=== PATIENT | male | born 1960 | race Caucasian/White ===

== ENCOUNTER 2019-08-26 08:27 | Emergency (ER) | payer OTHER, SELFPAY ==
[2019-08-26] MEDS ORDERED: Ringers Lactate 1,000 ML IV ONE (08:41)
[2019-08-26 09:05] LABS: Absolute Lymphocytes (CBC) 1.9 K/uL (0.7-4.9); Basophils % 0.8 % (0-1.3); Hematocrit 32.4 % (39.6-49.0); Lymphocytes % 22.1 % (15.3-44.8); MPV 8.2 fL (7.6-11.3); RBC Red Blood Cell Count 3.49 M/uL (4.33-5.43)
[2019-08-26 09:12] LABS: Protime INR 0.87
[2019-08-26 09:29] LABS: Albumin 4.3 g/dL (3.4-5.0); Bilirubin Direct 0.2 mg/dL (0-0.2); Bilirubin Total 0.5 mg/dL (0.2-1.0); Potassium 3.9 mmol/L (3.5-5.1); Protein, Total 7.8 g/dL (6.4-8.2)
[2019-08-26 10:23] LABS: Barbiturates NEGATIVE (NEGATIVE); Benzodiazepines NEGATIVE (NEGATIVE); Cocaine NEGATIVE (NEGATIVE); METHAMPHETAM POSITIVE (NEGATIVE); Methadone NEGATIVE (NEGATIVE); Opiates NEGATIVE (NEGATIVE); Phencyclidine NEGATIVE (NEGATIVE); THC Cannibis NEGATIVE (NEGATIVE)
--- NOTE | 2019-08-26 10:33 | EDPHYS ---
Physician Documentation [facility] Name: Arden Lux III Age: 59 yrs Sex: Male : 1960 Arrival Date: 08/26/2019 Time: 08:33 Bed 14 Private MD: ED Physician Ru Up HPI: 08/26 08:33 This 59 yrs old Male presents to ER via Unassigned with complaints of Anxiety.jr8 08:33 Onset: The symptoms/episode began/occurred this morning. Associated signs and symptoms: jr8 Pertinent negatives: abdominal pain, chest pain, cough, diarrhea, dysuria, vomiting, wheezing. BIBEMS called out for possible CVA. Upon EMS arrival pt is without and focal neurological findings, pt appears anxious, C/O fatigue, dehydration. . Historical: - Allergies: 08:26 Sulfa (Sulfonamide Antibiotics); rb1 - Home Meds: 08:26 lisinopril 20 mg Oral tab 1 tab once daily [Active]; simvastatin 40 mg Oral tab 1 tab rb1 nightly [Active]; Tylenol #4 Oral 1 tab BID PRN [Active]; esomeprazole magnesium 40 mg Oral cpDR 1 cap once daily [Active]; lorazepam 2 mg Oral tab 1 tab TID prn [Active]; - PMHx: 08:26 Anxiety; CVA; GERD; Hepatitis C; High Cholesterol; Hypertension; suicidal ideation; rb1 - PSHx: 08:26 None; rb1 - Immunization history:: Adult Immunizations up to date. - Social history:: Smoking status: Patient uses tobacco products, smokes one pack cigarettes per day. - Ebola Screening: : Patient negative for fever greater than or equal to 101.5 degrees Fahrenheit, and additional compatible Ebola Virus Disease symptoms. ROS: 08:33 Constitutional: Negative for fever, chills, and weight loss, Eyes: Negative for injury, jr8 pain, redness, and discharge, ENT: Negative for injury, pain, and discharge, Neck: Negative for injury, pain, and swelling, Cardiovascular: Negative for chest pain, palpitations, and edema, Respiratory: Negative for shortness of breath, cough, wheezing, and pleuritic chest pain, Abdomen/GI: Negative for abdominal pain, nausea, vomiting, diarrhea, and constipation, Back: Negative for injury and pain, MS/Extremity: Negative for injury and deformity, Skin: Negative for injury, rash, and discoloration, Neuro: Negative for headache, weakness, numbness, tingling, and seizure. Exam: 08:33 Constitutional: This is a well developed, well nourished patient who is awake, alert, jr8 and in no acute distress. Head/Face: Normocephalic, atraumatic. Eyes: Pupils equal round and reactive to light, extra-ocular motions intact. Lids and lashes normal. Conjunctiva and sclera are non-icteric and not injected. Cornea within normal limits. Periorbital areas with no swelling, redness, or edema. ENT: Nares patent. No nasal discharge, no septal abnormalities noted. Tympanic membranes are normal and external auditory canals are clear. Oropharynx with no redness, swelling, or masses, exudates, or evidence of obstruction, uvula midline. Mucous membranes moist. Neck: Trachea midline, no thyromegaly or masses palpated, and no cervical lymphadenopathy. Supple, full range of motion without nuchal rigidity, or vertebral point tenderness. No Meningismus. Chest/axilla: Normal chest wall appearance and motion. Nontender with no deformity. No lesions are appreciated. Cardiovascular: Regular rate and rhythm with a normal S1 and S2. No gallops, murmurs, or rubs. Normal PMI, no JVD. No pulse deficits. Respiratory: Lungs have equal breath sounds bilaterally, clear to auscultation and percussion. No rales, rhonchi or wheezes noted. No increased work of breathing, no retractions or nasal flaring. Abdomen/GI: Soft, non-tender, with normal bowel sounds. No distension or tympany. No guarding or rebound. No evidence of tenderness throughout. Back: No spinal tenderness. No costovertebral tenderness. Full range of motion. Skin: Warm, dry with normal turgor. Normal color with no rashes, no lesions, and no evidence of cellulitis. MS/ Extremity: Pulses equal, no cyanosis. Neurovascular intact. Full, normal range of motion. 08:33 Neuro: Orientation: is normal, Mentation: is normal, Cranial nerves: CN II- XII are normal as tested, Motor: is normal, Sensation: is normal, Gait: not applicable Vital Signs: 08:26 BP 167 / 95; Pulse 95; Resp 20; Temp 97.9(O); Pulse Ox 100% on R/A; Weight 63.5 kg (R); rb1 Height 5 ft. 6 in. (167.64 cm) (R); Pain 8/10; 09:25 BP 173 / 99; Pulse 95; Resp 14; Pulse Ox 100% on R/A; rb1 10:22 BP 179 / 96; Pulse 96; Resp 15; Temp 98.1(O); Pulse Ox 100% on R/A; Pain 6/10; rb1 08:26 Body Mass Index 22.60 (63.50 kg, 167.64 cm) rb1 MDM: 08:33 Patient medically screened. 8 10:31 Data reviewed: vital signs, nurses notes, lab test result(s), EKG. Data interpreted: jr8 Pulse oximetry: on room air is 100 %. Interpretation: normal. Counseling: I had a detailed discussion with the patient and/or guardian regarding: the historical points, exam findings, and any diagnostic results supporting the discharge/admit diagnosis, lab results, the need for outpatient follow up, a family practitioner, to return to the emergency department if symptoms worsen or persist or if there are any questions or concerns that arise at home. Response to treatment: the patient's symptoms have markedly improved after treatment, patient is well hydrated. 08/26 08:35 Order name: Basic Metabolic Panel; Complete Time: :08/26 08:35 Order name: CBC with Diff; Complete Time: 09:08/26 08:35 Order name: ETOH Level; Complete Time: :08/26 08:35 Order name: Hepatic Function; Complete Time: :08/26 08:35 Order name: PT-INR; Complete Time: :52 08/26 08:35 Order name: Ptt, Activated; Complete Time: :52 08/26 08:35 Order name: Urine Drug Screen; Complete Time: 10:31 08/26 08:35 Order name: EKG; Complete Time: 08:36 08/26 08:35 Order name: EKG - Nurse/Tech; Complete Time: 09:09 08/26 08:35 Order name: IV Saline Lock; Complete Time: 09:08/26 08:35 Order name: Labs collected and sent; Complete Time: 09:09 jr8 08/26 08:35 Order name: Urine Dipstick-Ancillary (obtain specimen); Complete Time: 10:35 jr8 08/26 10:05 Order name: Urine Dipstick--Ancillary (enter results) gm Administered Medications: 08:50 Drug: Lactated Ringers Solution 1000 ml Route: IV; Rate: 999 ml/hr; Site: right rb1 antecubital; 09:59 Follow up: IV Status: Completed infusion rb1 Disposition: 12:16 Co-signature as Attending Physician, Ru Up MD. rn Disposition: 08/26/19 10:32 Discharged to Home. Impression: Drug abuse counseling and surveillance of drug abuser, Alcohol abuse, Panic disorder [episodic paroxysmal anxiety] without agoraphobia. - Condition is Stable. - Discharge Instructions: Alcohol Intoxication, Panic Attacks, Stimulant Use Disorder-Methamphetamines. - Medication Reconciliation Form, Thank You Letter, Antibiotic Education, Prescription Opioid Use form. - Follow up: Private Physician; When: 2 - 3 days; Reason: Recheck today's complaints, Continuance of care, Re-evaluation by your physician. - Problem is new. - Symptoms have improved. Signatures: Dispatcher [employer] EDMS Ru Up MD MD rn Roszak, Josh, PA PA jr8 Camila Atkins RN RN rb1 Corrections: (The following items were deleted from the chart) 10:52 10:32 08/26/2019 10:32 Discharged to Home. Impression: Drug abuse counseling and rb1 surveillance of drug abuser; Alcohol abuse; Panic disorder [episodic paroxysmal anxiety] without agoraphobia. Condition is Stable. Forms are Medication Reconciliation Form, Thank You Letter, Antibiotic Education, Prescription Opioid Use. Follow up: Private Physician; When: 2 - 3 days; Reason: Recheck today's complaints, Continuance of care, Re-evaluation by your physician. Problem is new. Symptoms have improved. jr8
--- NOTE | 2019-08-26 10:33 | ER ---
Nurse's Notes [facility] Name: Arden Lux III Age: 59 yrs Sex: Male : 1960 Arrival Date: 08/26/2019 Time: 08:33 Bed 14 Private MD: Diagnosis: Drug abuse counseling and surveillance of drug abuser;Alcohol abuse;Panic disorder [episodic paroxysmal anxiety] without agoraphobia Presentation: 08/26 08:26 Presenting complaint: EMS states: [place]. Has a rb1 history of a stroke and anxiety. He is non-compliant with his medications. BP 128/73. Allergy to Sulfa. Transition of care: patient was not received from another setting of care. Onset of symptoms is unknown. Risk Assessment: Do you want to hurt yourself or someone else? Patient reports no desire to harm self or others. Initial Sepsis Screen: Does the patient meet any 2 criteria? No. Patient's initial sepsis screen is negative. Does the patient have a suspected source of infection? No. Patient's initial sepsis screen is negative. Care prior to arrival: None. 08:26 Method Of Arrival: EMS: [facility] rb1 08:26 Acuity: LILIA 3 rb1 Triage Assessment: 08:26 General: Appears comfortable, Behavior is anxious, talkative. Pain: Complains of pain rb1 in back of neck Pain currently is 8 out of 10 on a pain scale. Neuro: Level of Consciousness is awake, alert, obeys commands, Oriented to person, place, time, situation. Cardiovascular: Capillary refill < 3 seconds is brisk in bilateral fingers. Respiratory: Airway is patent Respiratory effort is even, unlabored, Respiratory pattern is regular, symmetrical. GI: No signs and/or symptoms were reported involving the gastrointestinal system. : No signs and/or symptoms were reported regarding the genitourinary system. Derm: Skin is pink, warm \T\ dry. Musculoskeletal: Range of motion: intact in all extremities. Historical: - Allergies: 08: Sulfa (Sulfonamide Antibiotics); rb1 - Home Meds: 08: lisinopril 20 mg Oral tab 1 tab once daily [Active]; simvastatin 40 mg Oral tab 1 tab rb1 nightly [Active]; Tylenol #4 Oral 1 tab BID PRN [Active]; esomeprazole magnesium 40 mg Oral cpDR 1 cap once daily [Active]; lorazepam 2 mg Oral tab 1 tab TID prn [Active]; - PMHx: 08: Anxiety; CVA; GERD; Hepatitis C; High Cholesterol; Hypertension; suicidal ideation; rb1 - PSHx: 08: None; rb1 - Immunization history:: Adult Immunizations up to date. - Social history:: Smoking status: Patient uses tobacco products, smokes one pack cigarettes per day. - Ebola Screening: : Patient negative for fever greater than or equal to 101.5 degrees Fahrenheit, and additional compatible Ebola Virus Disease symptoms. Screenin: Abuse screen: Denies threats or abuse. Nutritional screening: No deficits noted. rb1 Tuberculosis screening: No symptoms or risk factors identified. Fall Risk None identified. Assessment: 08: General: See triage assessment. rb1 09:25 Reassessment: Patient appears in no apparent distress at this time. No changes from rb1 previously documented assessment. 10:22 Reassessment: Patient appears in no apparent distress at this time. Patient and/or rb1 family updated on plan of care and expected duration. Pain level reassessed. Patient is alert, oriented x 3, equal unlabored respirations, skin warm/dry/pink. Pt. is watching TV. Vital Signs: 08:26 BP 167 / 95; Pulse 95; Resp 20; Temp 97.9(O); Pulse Ox 100% on R/A; Weight 63.5 kg (R); rb1 Height 5 ft. 6 in. (167.64 cm) (R); Pain 8/10; 09:25 BP 173 / 99; Pulse 95; Resp 14; Pulse Ox 100% on R/A; rb1 10:22 BP 179 / 96; Pulse 96; Resp 15; Temp 98.1(O); Pulse Ox 100% on R/A; Pain 6/10; rb1 08:26 Body Mass Index 22.60 (63.50 kg, 167.64 cm) [facility] ED Course: 08: Arm band placed on right wrist. rb1 08: Patient has correct armband on for positive identification. Bed in low position. Call rb1 light in reach. Side rails up X 1. child monitor on. Pulse ox on. NIBP on. Warm blanket given. 08:33 Patient arrived in ED. jr8 08:33 Dwaine Vega PA is PHCP. jr8 08:33 Ru Up MD is Attending Physician. jr8 08:38 Camila Atkins, RN is Primary Nurse. rb1 08:49 Inserted saline lock: 22 gauge in right antecubital area, using aseptic technique. rb1 Blood collected. 09:13 Triage completed. rb1 10:48 No provider procedures requiring assistance completed. IV discontinued, intact, rb1 bleeding controlled, No redness/swelling at site. Pressure dressing applied. Administered Medications: 08:50 Drug: Lactated Ringers Solution 1000 ml Route: IV; Rate: 999 ml/hr; Site: right rb1 antecubital; 09:59 Follow up: IV Status: Completed infusion rb1 Outcome: 10:32 Discharge ordered by . jr8 10:48 Discharged to home ambulatory. rb1 10:48 Condition: stable 10:48 Discharge instructions given to patient, Instructed on discharge instructions, follow up and referral plans. Demonstrated understanding of instructions, follow-up care, Prescriptions given X none 10:52 Patient left the ED. rb1 Signatures: Dwaine Vega PA PA jr8 Camila Atkins, RN RN rb1
[2019-08-26 10:59] VITALS: O2SAT 100
[2019-08-26 11:00] VITALS: BP 179/96; TEMP 98.1
[2019-08-26 11:38] LABS: Urine Blood NEGATIVE (NEG); Urine Glucose NEGATIVE (NEG); Urine Protein NEGATIVE (NEG); Urine pH 5.5 (5.0-7.0)
--- NOTE | 2019-08-27 09:50 | EKG ---
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
== END 2019-08-26 10:52 | disposition home or self-care (01) ==
LOC: ER 08:27
DX: F41.0 Panic disorder [episodic paroxysmal anxiety] (principal); F10.10 Alcohol abuse, uncomplicated; I10 Essential (primary) hypertension; F17.210 Nicotine dependence, cigarettes, uncomplicated; K21.9 Gastro-esophageal reflux disease without esophagitis; Z71.51 Drug abuse counseling and surveillance of drug abuser
CPT/HCPCS: 93005; 85025; 80048; 36415; 80320; 85610; 80076; 80307 ×8; 85730; 81003; 96360; 99284; J7120

== ENCOUNTER 2020-07-04 10:14 | Emergency (ER) | payer OTHER, SELFPAY ==
--- NOTE | 2020-07-04 10:31 | RAD REPORT ---
EXAM DESCRIPTION: CT - Ct Stroke Brain Wo Cont - 07/04/2020 10:22 am CLINICAL HISTORY: Numbness COMPARISON: none TECHNIQUE: Computed axial tomography of the head was obtained. All CT scans are performed using dose optimization technique as appropriate and may include automated exposure control or mA/KV adjustment according to patient size. FINDINGS: An intracranial bleed is not seen . The ventricles are normal in caliber. No extra-axial fluid collection is noted. A 3.5 centimeter low-density area left cerebellum unchanged likely old infarction. Old left caudate i nfarct. Fluid within the sinuses/ mastoids is not seen. Mild chronic sinusitis IMPRESSION: No acute intracranial abnormality is seen. If patient's symptoms persist MRI of the bra in would be recommended. Dr Miller of the emergency room was notified at 10:22 a.m. July 04, 2020
[2020-07-04 10:42] LABS: Absolute Lymphocytes (CBC) 2.6 K/uL (0.7-4.9); Basophils % 1.2 % (0-1.3); Hematocrit 30.6 % (39.6-49.0); RBC Red Blood Cell Count 3.06 M/uL (4.33-5.43)
[2020-07-04 10:47] LABS: Protime INR 0.97
[2020-07-04 10:58] LABS: Potassium 3.9 mmol/L (3.5-5.1)
[2020-07-04 11:27] LABS: Platelet Estimate ADEQ; White Blood Cell Scan OK
[2020-07-04 11:28] LABS: Blood Morphology Comment NOT SEEN (NOT SEEN)
--- NOTE | 2020-07-04 11:48 | RAD REPORT ---
EXAM DESCRIPTION: MRI - Brain Wo Cont - 07/04/2020 11:40 am CLINICAL HISTORY: Left hand numbness COMPARISON: July 04, [address] TECHNIQUE: Axial, sagittal, and coronal magnetic images of the brain were obtained. Contrast was not requested FINDINGS: 3.5 centimeter area of abnormal signal within the left cerebellum compatible with an old i nfarction. Old infarct involves the left caudate Mild to moderate signal within periventricular, deep and subcortical white matter likely ischemic louisa nges secondary to small vessel disease. Diffusion-weighted/ADC mapping does not reveal evidence of acute infarction. The ventricles are normal caliber. An extra-axial fluid collection is not present Fluid within the sinuses/mastoids is not noted. Mild chronic sinusitis IMPRESSION: No acute abnormality is displayed
--- NOTE | 2020-07-04 11:50 | RAD REPORT ---
EXAM DESCRIPTION: Addie Single View07/04/2020 11:27 am CLINICAL HISTORY: Cough COMPARISON: none FINDINGS: The lungs appear clear of acute infiltrate. The heart is normal size IMPRESSION: No acute abnormalities displayed
--- NOTE | 2020-07-04 14:37 | P.CNS ---
Date of Consult: 07/04/20 Reason for Consult: ER evaluation for possible admission Requesting Physician: Trevor Miller Primary Care Provider: Dr. Ovalles Chief Complaint: Left hand weakness History of Present Illness: 60-year-old male with history of hypertension, hyperlipidemia, Erosive gastritis/GERD, prior CVA, tobacco abuse, alcohol abuse and cocaine abuse. Patient reports left wrist palsy. Patient reports that he fell yesterday. He fell to the ground and hit his left elbow region. At the time he had no evidence of weakness or numbness. He went to bed at 9:30 a.m.. Then when he woke up this morning he noted left wrist palsy. He was not able to flex the wrist. He was able to move the elbow and deltoid region. He thought that he may have had a stroke. He came to the ER for further evaluation. In the ER patient was evaluated. CT head perform show no acute stroke. MRI brain followed. No acute abnormality identified. There is a 3.5 cm area of abnormal signal in the left cerebellum compatible with an old infarct. Old infarct also shows in the left caudate region. Patient has small-vessel disease. Lab shows alcohol level is 262. Hemoglobin 10.6, BMP unremarkable. Chest x-ray unremarkable. I was called to the ER for further evaluation for possible admission. When I saw the patient ER, he appeared comfortable. Patient admits drinking alcohol, using crack cocaine, and is a smoker. Allergies Sulfa (Sulfonamide A Allergy (Uncoded 05/06/17 07:00) Unknown Sulfa (Sulfonamide An Allergy (Uncoded 09/08/17 02:18) Unknown Sulfa (Sulfonamide Antibiot Allergy (Uncoded 08/23/17 10:51) Unknown Home medications list reviewed: Yes - Past Medical/Surgical History Diabetic: No -: Hypertension -: History of CVA -: Hyperlipidemia -: Erosive gastritis -: Abdominal aortic aneurysm -: Enlarged prostate -: Alcohol abuse -: Tobacco abuse -: Cocaine abuse Past Surgical History: Patient denies surgical history Psychosocial/ Personal History: Patient is - Family History Father Family History: Reviewed- Non-Contributory - Social History Smoking Status: Current every day smoker Counseled patient to stop smoking for: less than 10 minutes Smoking therapy provided: Yes Patient receptive to therapy: Yes Alcohol use: Yes CD- Drugs: Yes Caffeine use: Yes Place of Residence: Home Review of Systems General: As per HPI Eyes: Unremarkable Respiratory: Unremarkable Cardiovascular: Unremarkable Gastrointestinal: Unremarkable Genitourinary: Unremarkable Musculoskeletal: As per HPI Integumentary: As per HPI Neurological: As per HPI Lymphatics: Unremarkable Physical Examination General: Alert, In no apparent distress, Oriented x3, Cooperative HEENT: Atraumatic, Normocephalic, Mucous membr. moist/pink Neck: Supple Respiratory: Clear to auscultation bilaterally, Normal air movement Cardiovascular: Normal pulses, Regular rate/rhythm Gastrointestinal: Normal bowel sounds, Soft and benign, Non-distended, No tenderness, No masses Musculoskeletal: Other (Left elbow shows abrasion with swelling noted. Some mild pain to the elbow a region) Neurological: Other (Patient has left hand palsy. 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 Not able to flex wrist appropriately. Patient able to extend his elbow and moved properly. Patient able to extend shoulder.) Laboratory Data (last 24 hrs) 07/04/20 10:25: PT 11.5, INR 0.97, APTT 28.0 07/04/20 10:25: WBC 6.4, Hgb 10.6 L, Hct 30.6 L, Plt Count 173 07/04/20 10:25: Sodium 142, Potassium 3.9, BUN 12, Creatinine 1.25, Glucose 82 Conclusions/Impression: Impression: Left wrist palsy likely traumatic radiculopathy Alcohol abuse Tobacco abuse Hypertension Hyperlipidemia History of CVA Plan: Patient evaluated. MRI reviewed with Neurology. Neurology suspects traumatic radiculopathy. His condition should improve over time. He may have partial damage to the nerve. Patient given instruction on exercises. Patient may also placed ice to the elbow region to help with swelling. Recommend follow up with neurology within 1 week to follow up this hospitalization. If the weakness to his wrist continues then patient may require EMG to further evaluate. Patient educated on alcohol, tobacco and cocaine cessation. Patient understands this. Patient also counseled to continue his current medications. Recommend follow up with his PCP to further address. Case addressed along with plan of care with ER physician. He agrees to plan of care. ER to discharge patient. Time Spent Managing Pts care (In Minutes): 55
--- NOTE | 2020-07-04 14:42 | EDPHYS ---
Physician Documentation [facility] Name: Arden Lux III Age: 60 yrs Sex: Male : 1960 Arrival Date: 07/04/2020 Time: 10:17 Bed 3 Private MD: ED Physician Trevor Miller HPI: 07/04 18:30 This 60 yrs old Male presents to ER via EMS with complaints of S/S of kdr Possible Stroke. 18:30 The patient's problem is reported as weakness, in the left upper extremity. Onset: The kdr symptoms/episode began/occurred at an unknown time. Duration: This was a single incident, the symptoms became persistent. Context: the episode(s) was witnessed, by no one, symptoms became apparent upon waking, occurred at home, occurred while the patient was asleep, Possible contributing factors include: May have had a recent fall on his elbow and had contusion. The symptoms are alleviated by nothing. The symptoms are aggravated by nothing. Associated signs and symptoms: The patient has no apparent associated signs or symptoms. Severity of symptoms: At their worst the symptoms were mild in the emergency department the symptoms are unchanged. Patient's baseline: Neuro: alert and fully oriented, Motor: no deficits, Ambulation: walks without assistance, Speech: normal. The patient has not experienced similar symptoms in the past. The patient reports a prior stroke but did not have significant residual. he admits to drinking last night. Historical: - Allergies: 10:37 Sulfa (Sulfonamide Antibiotics); em - PMHx: 10:37 Anxiety; CVA; GERD; Hepatitis C; High Cholesterol; Hypertension; suicidal ideation; em - PSHx: 10:37 None; em - Immunization history:: Adult Immunizations up to date. - Social history:: Smoking status: Patient reports the use of cigarette tobacco products, denies chronic smoking, but will smoke occasionally. ROS: 18:30 Constitutional: Negative for fever, chills, and weight loss, Eyes: Negative for injury, kdr pain, redness, and discharge, Neck: Negative for injury, pain, and swelling, Cardiovascular: Negative for chest pain, palpitations, and edema, Respiratory: Negative for shortness of breath, cough, wheezing, and pleuritic chest pain, Abdomen/GI: Negative for abdominal pain, nausea, vomiting, diarrhea, and constipation, Back: Negative for injury and pain, : Negative for injury, bleeding, discharge, and swelling, MS/Extremity: Negative for injury and deformity, Skin: Negative for injury, rash, and discoloration, Psych: Negative for depression, anxiety, suicide ideation, homicidal ideation, and hallucinations, Allergy/Immunology: Negative for hives, rash, and allergies, Endocrine: Negative for neck swelling, polydipsia, polyuria, polyphagia, and marked weight changes, Hematologic/Lymphatic: Negative for swollen nodes, abnormal bleeding, and unusual bruising. 18:30 Neuro: Positive for weakness, of the left wrist, left hand and palmar aspect of left forearm, Negative for altered mental status, dizziness, gait disturbance, headache, hearing loss, loss of consciousness, numbness, seizure activity, speech changes, syncope, near syncope, tingling, tinnitus, tremor. Exam: 18:30 Radiologist reports: Negative kdr 18:30 Constitutional: This is a well developed, well nourished patient who is awake, alert, and in no acute distress. Head/Face: Normocephalic, atraumatic. Eyes: Pupils equal round and reactive to light, extra-ocular motions intact. Lids and lashes normal. Conjunctiva and sclera are non-icteric and not injected. Cornea within normal limits. Periorbital areas with no swelling, redness, or edema. Neck: Trachea midline, no thyromegaly or masses palpated, and no cervical lymphadenopathy. Supple, full range of motion without nuchal rigidity, or vertebral point tenderness. No Meningismus. Chest/axilla: Normal chest wall appearance and motion. Nontender with no deformity. No lesions are appreciated. Cardiovascular: Regular rate and rhythm with a normal S1 and S2. No gallops, murmurs, or rubs. Normal PMI, no JVD. No pulse deficits. Respiratory: Lungs have equal breath sounds bilaterally, clear to auscultation and percussion. No rales, rhonchi or wheezes noted. No increased work of breathing, no retractions or nasal flaring. Abdomen/GI: Soft, non-tender, with normal bowel sounds. No distension or tympany. No guarding or rebound. No evidence of tenderness throughout. Back: No spinal tenderness. No costovertebral tenderness. Full range of motion. Skin: Warm, dry with normal turgor. Normal color with no rashes, no lesions, and no evidence of cellulitis. MS/ Extremity: Pulses equal, no cyanosis. Neurovascular intact. Full, normal range of motion. Psych: Awake, alert, with orientation to person, place and time. Behavior, mood, and affect are within normal limits. 18:30 Neuro: Orientation: appropriate for stated age, Mentation: appropriate for stated age, Motor: All extremities are normal. The patient is unable to extend at the wrist of the left upper extremity.. Vital Signs: 10:10 BP 94 / 69; Pulse 72; Resp 18; Temp 98.1(O); Pulse Ox 97% on R/A; Pain 0/10; em 10:45 BP 97 / 65; Pulse 67; Resp 18; Pulse Ox 98% on R/A; em 12:23 BP 96 / 67; Pulse 59; Resp 18; Pulse Ox 99% on R/A; em 13:30 BP 120 / 77; Pulse 66; Resp 16; Pulse Ox 99% on R/A; em 14:30 BP 117 / 74; Pulse 65; Resp 18; Pulse Ox 100% on R/A; em NIH Stroke Scale Scores: 10:45 NIHSS Score: 1 em MDM: 14:41 Patient medically screened. kdr 18:30 Data reviewed: vital signs, nurses notes, lab test result(s), radiologic studies. kdr Counseling: I had a detailed discussion with the patient and/or guardian regarding: the historical points, exam findings, and any diagnostic results supporting the discharge/admit diagnosis, lab results, radiology results, the need for outpatient follow up. 07/04 10:19 Order name: Basic Metabolic Panel; Complete Time: 11:54 em 07/04 10:19 Order name: CBC with Diff; Complete Time: 11:54 07/04 10:19 Order name: Protime (+inr); Complete Time: 11:54 07/04 10:19 Order name: Ptt, Activated; Complete Time: 11:54 07/04 10:29 Order name: ETOH Level; Complete Time: 11:54 07/04 10:30 Order name: glucometer results - FOR PT WITH NO ID em 07/04 10:19 Order name: CT Stroke Brain w/o Contrast; Complete Time: 11:54 07/04 10:19 Order name: Stroke CXR 1 View; Complete Time: 11:54 em 07/04 10:19 Order name: EKG; Complete Time: 10:19 em 07/04 10:19 Order name: Accucheck; Complete Time: 10:47 em 07/04 10:19 Order name: Cardiac monitoring; Complete Time: 10:47 em 07/04 10:19 Order name: EKG - Nurse/Tech; Complete Time: 10:47 em 07/04 11:07 Order name: MRI - Brain Wo Cont; Complete Time: 11:54 kdr 07/04 11:28 Order name: CBC Smear Scan; Complete Time: 11:54 EDMS 07/04 10:19 Order name: IV Saline Lock; Complete Time: 10:47 em 07/04 10:19 Order name: Labs collected and sent; Complete Time: 10:47 em 07/04 10:19 Order name: NPO; Complete Time: 10:47 em 07/04 10:19 Order name: O2 Per Protocol; Complete Time: 10:47 em 07/04 10:19 Order name: O2 Sat Monitoring; Complete Time: 10:47 em 07/04 10:19 Order name: Stroke Swallow Screen; Complete Time: 10:47 em Administered Medications: No medications were administered Point of Care Testing: Blood Glucose: 10:37 Blood Glucose: 76 mg/dL; em Ranges: Critical Glucose Levels:Adult <50 mg/dl or >400 mg/dl <40 mg/dl or >180 mg/dl Disposition: 07/04/20 14:41 Discharged to Home. Impression: Traumatic Ulnar Neuropathy left arm. - Condition is Stable. - Discharge Instructions: Peripheral Neuropathy, Focal Neuropathy. - Prescriptions for Ibuprofen 600 mg Oral Tablet - take 1 tablet by ORAL route every 6 hours As needed take with food; 30 tablet. Medrol (Nigel) 4 mg Oral Tablets, Dose Pack - take 1 tablet by ORAL route as directed - follow package instructions; 1 packet. - Medication Reconciliation Form, Thank You Letter form. - Follow up: Private Physician; When: 2 - 3 days; Reason: If symptoms return, Further diagnostic work-up, Recheck today's complaints, Continuance of care, Re-evaluation by your physician. - Problem is new. - Symptoms have improved. NIH Stroke Scale - NIH Stroke Score Date: 07/04/2020 Time: 10:45 Total Score = 1 1a. Level of Consciousness (LOC) - 0(Alert) 1b. Level of Consciousness (LOC) (Year \T\ Age) - 0(Both) 1c. LOC Commands (Open \T\ Closes Eyes/Computer Systems Auditor) - 0(Both) 2. Best Gaze (Lateral Gaze Paresis) - 0(Normal) 3. Visual Field Loss - 0(No visual loss) 4. Facial Palsy - 0(Normal) 5a. Left Arm: Motor (10-second hold) - 0(No drift) 5b. Right Arm: Motor (10-second hold) - 0(No drift) 6a. Left Leg: Motor (5-second hold - always test supine) - 0(No drift) 6b. Right Leg: Motor (5-second hold - always test supine) - 0(No drift) 7. Limb Ataxia (finger/nose \T\ heel/ely - test with eyes open) - 0(Absent) 8. Sensory Loss (pinprick arms/legs/face) - 1(Mild to moderate loss) 9. Best Language: Aphasia (description/naming/reading) - 0(No aphasia) 10. Dysarthria (speech clarity - read or repeat words) - 0(Normal) 11. Extinction and Inattention (visual/tactile/auditory/spatial/personal) - 0(No abnormality) Initials: em Signatures: Dispatcher [employer] Trevor Monroe MD MD kdr Munoz, Edgar RN RN em Corrections: (The following items were deleted from the chart) 15:01 14:41 07/04/2020 14:41 Discharged to Home. Impression: Traumatic Ulnar em Neuropathy left arm. Condition is Stable. Forms are Medication Reconciliation Form, Thank You Letter, Antibiotic Education, Prescription Opioid Use. Follow up: Private Physician; When: 2 - 3 days; Reason: If symptoms return, Further diagnostic work-up, Recheck today's complaints, Continuance of care, Re-evaluation by your physician. Problem is new. Symptoms have improved. kdr
--- NOTE | 2020-07-04 14:42 | ER ---
Nurse's Notes [facility] Name: Arden Lux III Age: 60 yrs Sex: Male : 1960 Arrival Date: 07/04/2020 Time: 10:17 Bed 3 Private MD: Diagnosis: Traumatic Ulnar Neuropathy left arm Presentation: 07/04 10:10 Chief complaint: EMS states: pt woke up today with left arm weakness and numbness about em 3 hours ago, went to bed normal last night around 9 PM, hand weakness noted on the left side, no drift, headache or blurry vision, hx of stroke, pt admits to drinking one beer this morning. 10:10 Coronavirus screen: Client denies travel out of the [place] in the last 14 days. At this em time, the client does not indicate any symptoms associated with coronavirus-19. The client reports previous COVID testing was negative. Date of collection: June 27, 2020. Ebola Screen: Patient negative for fever greater than or equal to 101.5 degrees Fahrenheit, and additional compatible Ebola Virus Disease symptoms Patient denies exposure to infectious person. Patient denies travel to an Ebola-affected area in the 21 days before illness onset. No symptoms or risks identified at this time. An acute neurological deficit is present. The charge nurse has been notified. Pre-hospital glucose is not applicable to this patient. Initial Sepsis Screen: Does the patient meet any 2 criteria? No. Patient's initial sepsis screen is negative. Does the patient have a suspected source of infection? No. Patient's initial sepsis screen is negative. Risk Assessment: Do you want to hurt yourself or someone else? Patient reports no desire to harm self or others. Onset of symptoms was July 04, 2020. 10:10 Method Of Arrival: EMS: [facility] em 10:10 Acuity: LILIA 2 em Stroke Activation: Physician: Stroke Attending; Name: ; Notified At: ; Arrived At: Physician: Chief Stroke Resident; Name: ; Notified At: ; Arrived At: Physician: Stroke Resident; Name: ; Notified At: ; Arrived At: Physician: ED Attending; Name: Angela; Notified At: ; Arrived At: Physician: ED Resident; Name: ; Notified At: ; Arrived At: Historical: - Allergies: 10:37 Sulfa (Sulfonamide Antibiotics); em - PMHx: 10:37 Anxiety; CVA; GERD; Hepatitis C; High Cholesterol; Hypertension; suicidal ideation; em - PSHx: 10:37 None; em - Immunization history:: Adult Immunizations up to date. - Social history:: Smoking status: Patient reports the use of cigarette tobacco products, denies chronic smoking, but will smoke occasionally. Screenin:10 Abuse screen: Denies threats or abuse. Nutritional screening: No deficits noted. em Tuberculosis screening: No symptoms or risk factors identified. Fall Risk None identified. Assessment: 10:10 T-PA (Activase) Screening: Contraindications: Patient reports onset of signs and em symptoms of stroke greater than 6 hours ago: Yes. 10:10 VAN Scoring: Arm Drift: Patients demonstrates NO arm weakness. Patient is VAN Negative. em 10:10 General: Appears in no apparent distress. comfortable, Behavior is calm, cooperative, em appropriate for age. Pain: Denies pain. Neuro: Level of Consciousness is awake, alert, obeys commands, Oriented to person, place, time, situation, Appropriate for age Staff Mechanical Engineer are weak on left Weakness in left hand(s) arm(s) Speech is slurred, Facial symmetry appears normal, Numbness in left hand and left arm Denies blurred vision dizziness, numbness headache. Cardiovascular: Capillary refill < 3 seconds Patient's skin is warm and dry. Rhythm is sinus rhythm. Respiratory: Airway is patent Respiratory effort is even, unlabored, Respiratory pattern is regular, symmetrical. GI: Abdomen is flat, Patient currently denies nausea, vomiting. Derm: Skin is intact, is healthy with good turgor, Skin is pink, warm \T\ dry. Musculoskeletal: Range of motion: limited in left wrist. 10:13 Reassessment: wheeled to CT by me. em 10:47 Patient has been NPO before screening. The patient is alert, and able to follow em commands. The patient does not exhibit slurred or garbled speech. The patient is not exhibiting difficulty speaking. The patient does not exhibit difficulty understanding words. The patient is able to swallow own secretions with no drooling or need for suction. Patient tolerated one teaspoon of water. No drooling, immediate coughing, gurgling, or clearing of the throat was noted. The patient tolerated 90mL of water. No drooling, immediate coughing, gurgling, or clearing of the throat was noted. The patient passed the bedside swallow screening. Oral medications may be given as ordered. Contact Physician for further diet orders. Provider notified of bedside swallow screening results: Trevor Miller MD. 11:20 Reassessment: Patient appears in no apparent distress at this time. wheeled to MRI via em wheelchair. 12:19 Reassessment: Patient appears in no apparent distress at this time. Patient and/or em family updated on plan of care and expected duration. Pain level reassessed. Patient is alert, oriented x 3, equal unlabored respirations, skin warm/dry/pink. 13:30 Reassessment: Patient appears in no apparent distress at this time. Patient and/or em family updated on plan of care and expected duration. Pain level reassessed. Patient is alert, oriented x 3, equal unlabored respirations, skin warm/dry/pink. 13:47 Reassessment: Dr. Simental at bedside. em 14:25 Reassessment: Patient appears in no apparent distress at this time. pt ambulated to em restroom with steady gait. Vital Signs: 10:10 BP 94 / 69; Pulse 72; Resp 18; Temp 98.1(O); Pulse Ox 97% on R/A; Pain 0/10; em 10:45 BP 97 / 65; Pulse 67; Resp 18; Pulse Ox 98% on R/A; em 12:23 BP 96 / 67; Pulse 59; Resp 18; Pulse Ox 99% on R/A; em 13:30 BP 120 / 77; Pulse 66; Resp 16; Pulse Ox 99% on R/A; em 14:30 BP 117 / 74; Pulse 65; Resp 18; Pulse Ox 100% on R/A; em NIH Stroke Scale Scores: 10:45 NIHSS Score: 1 em ED Course: 10:10 Patient has correct armband on for positive identification. Placed in gown. Bed in low em position. Call light in reach. Side rails up X2. commercial review appraiser on. Pulse ox on. NIBP on. 10:10 Maintain EMS IV. Dressing intact. Good blood return noted. Site clean \T\ dry. Gauge \T\ em site: 20 R FA. 10:17 Patient arrived in ED. em 10:17 Hakan Chandra, RN is Primary Nurse. em 10:23 CT Stroke Brain w/o Contrast In Process Unspecified. EDMS 10:26 Trevor Miller MD is Attending Physician. kdr 10:35 Triage completed. em 10:37 Arm band placed on. em 11:27 Stroke CXR 1 View In Process Unspecified. EDMS 11:32 MRI - Brain Wo Cont In Process Unspecified. EDMS 14:57 No provider procedures requiring assistance completed. IV discontinued, intact, em bleeding controlled, No redness/swelling at site. Pressure dressing applied. Administered Medications: No medications were administered Point of Care Testing: Blood Glucose: 10:37 Blood Glucose: 76 mg/dL; em Ranges: Outcome: 14:41 Discharge ordered by MD. kdr 14:57 Discharged to home ambulatory. em 14:57 Condition: stable 14:57 Discharge instructions given to patient, Instructed on discharge instructions, follow up and referral plans. medication usage, Demonstrated understanding of instructions, follow-up care, medications, Prescriptions given X 2. 15:01 Patient left the ED. em NIH Stroke Scale - NIH Stroke Score Date: 07/04/2020 Time: 10:45 Total Score = 1 1a. Level of Consciousness (LOC) - 0(Alert) 1b. Level of Consciousness (LOC) (Year \T\ Age) - 0(Both) 1c. LOC Commands (Open \T\ Closes Eyes/Tower Crane Operator) - 0(Both) 2. Best Gaze (Lateral Gaze Paresis) - 0(Normal) 3. Visual Field Loss - 0(No visual loss) 4. Facial Palsy - 0(Normal) 5a. Left Arm: Motor (10-second hold) - 0(No drift) 5b. Right Arm: Motor (10-second hold) - 0(No drift) 6a. Left Leg: Motor (5-second hold - always test supine) - 0(No drift) 6b. Right Leg: Motor (5-second hold - always test supine) - 0(No drift) 7. Limb Ataxia (finger/nose \T\ heel/ely - test with eyes open) - 0(Absent) 8. Sensory Loss (pinprick arms/legs/face) - 1(Mild to moderate loss) 9. Best Language: Aphasia (description/naming/reading) - 0(No aphasia) 10. Dysarthria (speech clarity - read or repeat words) - 0(Normal) 11. Extinction and Inattention (visual/tactile/auditory/spatial/personal) - 0(No abnormality) Initials: em Signatures: Dispatcher [employer] Trevor Monroe MD MD kdr Munoz, Edgar, RN RN em
[2020-07-04 15:16] VITALS: BP 117/74; O2SAT 100
--- NOTE | 2020-07-06 15:36 | EKG ---
Test Date: 2020-07-04 Test Time: 10:47:48 Driver'S Education Instructor: BRI MEASUREMENT RESULTS: Intervals: Rate: 64 MN: 172 QRSD: 76 QT: 398 QTc: 410 [place]: P: 72 MN: 172 QRS: 28 T: 44 INTERPRETIVE STATEMENTS: Normal sinus rhythm Normal ECG Compared to ECG 08/26/2019 09:01:05 Myocardial infarct finding no longer present Electronically Signed On 07-06-20 15:34:54 CDT by Grayson Cardona
== END 2020-07-04 15:01 | disposition home or self-care (01) ==
LOC: ER 10:14
DX: S64.02XA Injury of ulnar nerve at wrist and hand level of left arm, initial encounter (principal); R29.701 NIHSS score 1; X58.XXXA Exposure to other specified factors, initial encounter; Y93.9 Activity, unspecified; Y92.9 Unspecified place or not applicable; Z88.2 Allergy status to sulfonamides; F17.210 Nicotine dependence, cigarettes, uncomplicated
CPT/HCPCS: 36415; 70450; 70551; 71045; 80048; 80320; 82947; 85025; 85610; 85730; 93005; 99284

== ENCOUNTER 2023-04-26 14:22 | Observation (INO) | payer MEDICARE ==
--- OUTSIDE RECORDS SUMMARY | 2023-04-26 14:37 | XMS REPORT | Continuity of Care Document ---
:1960 Author Organization [facility] t Address [address] [place] [address] [address] [place] [address] Care Team Providers Name Role Phone Rafael-Mbayo_A_AH Attending Clinician Unavailable Rafael-Mbayo_A_AH Admitting Clinician Unavailable Payers Payer Name Policy Type Policy Number Effective Date Expiration Date S harpreet [facility] [id number] 2020 (MEDICARE 00:00:00 REPLACEMENT HMO) [employer] [place] - [id number] 2019 [facility] (MEDICARE 00:00:00 REPLACEMENT/[employer] GE - HMO) Problems This patient has no known problems. Allergies, Adverse Reactions, Alerts This patient has no known allergies or adverse reactions. Medications This patient has no known medications. Procedures This patient has no known procedures. Encounters Start End Encounter Admission Attending Care Care Encounter Source Date/Time Date/Time Type Type Clinicians Facility Department ID 2022-06-04 2022-06-04 [facility] [id number] 03:40:00 07[facility] 2022-06-04 2022-06-04 Out[facility] [id number] [facility] 00:00:00 00:00:00 0506 [facility] 2021-12-14 2021-12-14 Outpatient [facility] [id number] [facility] 08:00:00 08:00:00 0124 [facility] 2021-12-04 2021-12-04 Outpatient [facility] [id number] [facility] 09:00:00 09:00:00 0114 [facility] 2021-03-18 2021-03-18 Outpatient Rafael-Mbayo [facility] [phone] [facility] 04:31:00 04:31:00 _A_AH [id number] Family Practic e 2020-01-17 2020-01-17 Outpatient Rafael-Mbayo [facility] [phone] [facility] 04:19:00 04:19:00 _A_AH [id number] Family Practic e 2020-01-17 2020-01-17 Outpatient Rafael-Mbayo VFP VFP [phone] [facility] 04:19:00 04:19:00 _A_AH [id number] Family Practic e 2020-01-17 2020-01-17 Outpatient Rafael-Mbayo VFP VFP [phone] [facility] 04:19:00 04:19:00 _A_AH [id number] Family Practic e 2020-01-17 2020-01-17 Outpatient Rafael-Mbayo VFP VFP [phone] [facility] 04:19:00 04:19:00 _A_AH [id number] Family Practic e 2020-01-17 2020-01-17 Outpatient Rafael-Mbayo VFP VFP [phone] [facility] 04:19:00 04:19:00 _A_AH [id number] Family Practic e Results This patient has no known results.
[2023-04-26 15:30] LABS: Absolute Lymphocytes (CBC) 1.5 K/uL (0.7-4.9); Hematocrit 27.4 % (39.6-49.0); Lymphocytes % 31.5 % (15.3-44.8); MCV 96.4 fL (80-100); MPV 8.1 fL (7.6-11.3); RBC Red Blood Cell Count 2.84 M/uL (4.33-5.43)
[2023-04-26 15:32] LABS: Protime INR 1.06
[2023-04-26 15:37] LABS: Urine Bacteria <20 /HPF (<20); Urine Bilirubin NEGATIVE (Negative); Urine Blood Negative (Negative); Urine Clarity Turbid (Clear); Urine Color Light-Yellow (Yellow); Urine Glucose NEGATIVE (Negative); Urine Protein NEGATIVE (Negative); Urine RBC <5 /HPF (None Seen); Urine Urobilinogen Normal (Normal); Urine pH 6.5 (5.0-7.0)
--- NOTE | 2023-04-26 15:38 | RAD REPORT ---
EXAM DESCRIPTION: CT - Head Brain Wo Cont - 04/26/2023 3:31 pm CLINICAL HISTORY: DIZZINESS Headache, hypotension COMPARISON: Ct Stroke Brain Wo Cont dated 07/04/2020; Head Brain Wo Cont dated 08/23/2017 TECHNIQUE: All CT scans are performed using dose optimization technique as appropriate and may inclu de automated exposure control or mA/KV adjustment according to patient size. FINDINGS: No intracranial hemorrhage, hydrocephalus or extra-axial fluid collection.Mild periventric ular and deep white matter chronic microvascular ischemic changes.Gliosis is noted in the medial left cerebellar hemisphere. The paranasal sinuses and mastoids are essentially clear. The calvarium is intact. IMPRESSION: No acute intracranial abnormality.
[2023-04-26 15:58] LABS: Albumin 3.3 g/dL (3.4-5.0); Bilirubin Direct 0.1 mg/dL (0-0.2); Bilirubin Indirect, Calculated 0.3 mg/dL (0.2-0.8); Bilirubin Total 0.4 mg/dL (0.2-1.0); Magnesium 1.5 mg/dL (1.6-2.4); Potassium 3.8 mEq/L (3.5-5.1); Protein, Total 6.3 g/dL (6.4-8.2); Troponin High Sensitivity 3.9 pg/mL (<58.9)
--- NOTE | 2023-04-26 16:12 | RAD REPORT ---
EXAM DESCRIPTION: RAD - Chest Single View - 04/26/2023 4:02 pm CLINICAL HISTORY: COUGH Chest pain. COMPARISON: Chest Single View dated 07/04/2020; Chest Single View dated 05/06/2017 FINDINGS: Portable technique limits examination quality. The lungs are grossly clear. The heart is normal in size. No displaced fractures. IMPRESSION: No acute intrathoracic process suspected.
[2023-04-26] MEDS ORDERED: NA CHLORIDE 0.9% 1,000 ML ONE (16:22)
--- NOTE | 2023-04-26 16:48 | EDPHYS ---
Physician Documentation [facility] Name: Arden Lux III Age: 62 yrs Sex: Male : 1960 Arrival Date: 04/26/2023 Time: 14:22 Bed 27 Private MD: ED Physician Dale Godoy HPI: 04/26 16:34 This 62 yrs old Male presents to ER via EMS with complaints of Chest Pain, louisa Dizziness. 16:34 The patient or guardian reports chest pain that is located primarily in the anterior louisa chest wall, bilaterally. Onset: 3 day(s) ago. The pain does not radiate. Associated signs and symptoms: Pertinent positives: shortness of breath. The chest pain is described as a pressure. Duration: The patient or guardian reports multiple episodes, that wax and wane. Modifying factors: The symptoms are alleviated by remaining still. Severity of pain: At its worst the pain was mild moderate in the emergency department the pain is unchanged. The patient has experienced similar episodes in the past, a few times. Historical: - Allergies: 14:53 Sulfa (Sulfonamide Antibiotics); jl7 - Home Meds: 14:53 aspirin 81 mg Oral TbEC 1 tab once daily [Active]; esomeprazole magnesium 40 mg Oral jl7 cpDR 1 cap once daily [Active]; lisinopril 20 mg Oral tab 1 tab once daily [Active]; lorazepam 2 mg Oral tab 1 tab TID prn [Active]; simvastatin 40 mg Oral tab 1 tab nightly [Active]; - PMHx: 14:53 Anxiety; CVA; GERD; Hepatitis C; High Cholesterol; Hypertension; suicidal ideation; jl7 - Immunization history:: Adult Immunizations unknown. - Social history:: Smoking status: Patient reports the use of cigarette tobacco products. ROS: 16:37 Constitutional: Negative for fever, chills, and weight loss, Eyes: Negative for injury, louisa pain, redness, and discharge, ENT: Negative for injury, pain, and discharge, Neck: Negative for injury, pain, and swelling, Abdomen/GI: Negative for abdominal pain, nausea, vomiting, diarrhea, and constipation, Back: Negative for injury and pain, : Negative for injury, bleeding, discharge, and swelling, MS/Extremity: Negative for injury and deformity, Skin: Negative for injury, rash, and discoloration, Neuro: Negative for headache, weakness, numbness, tingling, and seizure, Psych: Negative for depression, anxiety, suicide ideation, homicidal ideation, and hallucinations, Allergy/Immunology: Negative for hives, rash, and allergies, Endocrine: Negative for neck swelling, polydipsia, polyuria, polyphagia, and marked weight changes. 16:37 Cardiovascular: Positive for chest pain, of the chest. 16:37 Respiratory: Positive for pleurisy. Exam: 16:37 Constitutional: This is a well developed, well nourished patient who is awake, alert, louisa and in no acute distress. Head/Face: Normocephalic, atraumatic. Eyes: Pupils equal round and reactive to light, extra-ocular motions intact. Lids and lashes normal. Conjunctiva and sclera are non-icteric and not injected. Cornea within normal limits. Periorbital areas with no swelling, redness, or edema. ENT: Nares patent. No nasal discharge, no septal abnormalities noted. Tympanic membranes are normal and external auditory canals are clear. Oropharynx with no redness, swelling, or masses, exudates, or evidence of obstruction, uvula midline. Mucous membranes moist. Neck: Trachea midline, no thyromegaly or masses palpated, and no cervical lymphadenopathy. Supple, full range of motion without nuchal rigidity, or vertebral point tenderness. No Meningismus. Chest/axilla: Normal chest wall appearance and motion. Nontender with no deformity. No lesions are appreciated. Cardiovascular: Regular rate and rhythm with a normal S1 and S2. No gallops, murmurs, or rubs. Normal PMI, no JVD. No pulse deficits. Respiratory: Lungs have equal breath sounds bilaterally, clear to auscultation and percussion. No rales, rhonchi or wheezes noted. No increased work of breathing, no retractions or nasal flaring. Abdomen/GI: Soft, non-tender, with normal bowel sounds. No distension or tympany. No guarding or rebound. No evidence of tenderness throughout. Back: No spinal tenderness. No costovertebral tenderness. Full range of motion. Male : Normal genitalia with no discharge or lesions. Skin: Warm, dry with normal turgor. Normal color with no rashes, no lesions, and no evidence of cellulitis. MS/ Extremity: Pulses equal, no cyanosis. Neurovascular intact. Full, normal range of motion. Neuro: Awake and alert, GCS 15, oriented to person, place, time, and situation. Cranial nerves II-XII grossly intact. Motor strength 5/5 in all extremities. Sensory grossly intact. Cerebellar exam normal. Normal gait. Psych: Awake, alert, with orientation to person, place and time. Behavior, mood, and affect are within normal limits. 16:37 ECG was reviewed by the Attending Physician. Vital Signs: 14:50 BP 118 / 63; Pulse 72; Resp 15; Temp 97.9; Pulse Ox 100% ; Weight 70.31 kg; Height 5 jl7 ft. 6 in. ; Pain 0/10; 16:15 BP 128 / 74; Pulse 77; Resp 18; Pulse Ox 100% ; db 17:45 BP 129 / 64; Pulse 64; Resp 18; Pulse Ox 100% ; db 18:45 BP 132 / 72; Pulse 65; Resp 18; Pulse Ox 100% on R/A; db 14:50 Body Mass Index 25.02 (70.31 kg, 167.64 cm) jl7 14:50 Pain Scale: Adult jl7 MDM: 14:47 Patient medically screened. louisa 16:47 Antibiotic administration: Not indicated. Differential diagnosis: Anemia Bronchitis CHF luoisa exacerbation, Chronic Obstructive Pulmonary Disease abnormal EKG, acute myocardial infarction, anxiety, Cholelithiasis esophagitis, gastritis, gastroesophageal reflux disease (GERD), hiatal hernia, pancreatitis, stable angina, thoracic aortic disection, unstable angina, pulmonary edema, Pulmonary Embolism. HEART Score: History: Moderately Suspicious (1), ECG: Non specific repolarization disturbance / LBTB / PM (1), Age: > 45 and < 65 years (1), Risk Factors: > or = 3 Risk factors for atherosclerotic disease (2), [Hypercholesterolemia] [Hypertension] [Active Smoker] [+ Family HX] Troponin: < or = 1 x Normal Limit (0). The patient was given aspirin in the Emergency Department. YANA Risk Score: 1 - Three or more CAD risk factors, 1- Known CAD, TOTAL SCORE =. Immunization status: Influenza vaccine: within last 5 years. Data reviewed: vital signs, nurses notes, lab test result(s), EKG, radiologic studies, plain films. Consideration of Admission/Observation Escalation of care including admission/observation considered. I considered the following discharge prescriptions or medication management in the emergency department Medications were administered in the Emergency Department. See MAR. Test considered but Not performed: CT: NO CT CHEST. Historians other than the Patient: Spouse/Significant Other: , WELL INFORMED. Care significantly affected by the following chronic conditions: Hypertension, Chronic Obstructive Pulmonary Disease, ANXIETY, HEPATITIS, CRF, HIGH CHOLESTEROL, ANXIETY , CVA. Counseling: I had a detailed discussion with the patient and/or guardian regarding: the historical points, exam findings, and any diagnostic results supporting the discharge/admit diagnosis, lab results, radiology results, the need for further work-up and treatment in the hospital. 04/26 15:09 Order name: Basic Metabolic Panel; Complete Time: 16:16 [facility] 04/26 15:09 Order name: CBC with Diff; Complete Time: 16:16 [facility] 04/26 15:09 Order name: LFT's; Complete Time: 16:16 [facility] 04/26 15:09 Order name: Magnesium; Complete Time: 16:16 [facility] 04/26 15:09 Order name: NT PRO-BNP; Complete Time: 16:16 [facility] 04/26 15:09 Order name: PT-INR; Complete Time: 16:16 [facility] 04/26 15:09 Order name: Troponin HS; Complete Time: 16:16 [facility] 04/26 15:09 Order name: Lipase; Complete Time: 16:16 [facility] 04/26 15:09 Order name: Urinalysis w/ reflexes; Complete Time: 16:16 [facility] 04/26 18:13 Order name: Hemoglobin A1c [facility] 04/26 18:13 Order name: Lipid Profile [facility] 04/26 18:13 Order name: Troponin High Sensitivity [facility] 04/26 18:13 Order name: Troponin High Sensitivity [facility] 04/26 18:13 Order name: Troponin High Sensitivity [facility] 04/26 18:15 Order name: Magnesium [facility] 04/26 18:15 Order name: Phosphorus [facility] 04/26 18:15 Order name: T4 Free [facility] 04/26 18:15 Order name: Thyroid Stimulating Hormone [facility] 04/26 18:15 Order name: Urinalysis w/ reflexes [facility] 04/26 18:15 Order name: Basic Metabolic Panel [facility] 04/26 18:15 Order name: Basic Metabolic Panel [facility] 04/26 18:15 Order name: CBC with Automated Diff [facility] 04/26 18:15 Order name: CBC with Automated Diff [facility] 04/26 15:09 Order name: CT Head Brain wo Cont; Complete Time: 16:16 [facility] 04/26 15:39 Order name: Chest Single View; Complete Time: 16:16 [facility] 04/26 18:17 Order name: Echo with Doppler [facility] 04/26 15:09 Order name: EKG; Complete Time: 15:10 [facility] 04/26 18:15 Order name: CONS Physician Consult [facility] 04/26 18:15 Order name: Heart Healthy [facility] 04/26 15:09 Order name: Cardiac monitoring; Complete Time: 15:10 [facility] 04/26 15:09 Order name: EKG - Nurse/Tech; Complete Time: 15:10 [facility] 04/26 15:09 Order name: IV Saline Lock; Complete Time: 15:10 [facility] 04/26 15:09 Order name: Labs collected and sent; Complete Time: 15:10 [facility] 04/26 15:09 Order name: O2 Per Protocol; Complete Time: 15:10 [facility] 04/26 15:09 Order name: O2 Sat Monitoring; Complete Time: 15:10 [facility] EC:37 Rate is 70 beats/min. Rhythm is regular. QRS [place] is Normal. DE interval is normal. QRS louisa interval is normal. QT interval is normal. No Q waves. T waves are Normal. ST Segment is depressed in leads I, II, aVL. Clinical impression: NSR w/ Non-specific ST/T Changes. Interpreted by me. Reviewed by me. Administered Medications: 15:45 Drug: NS 0.9% IV 1000 ml Route: IV; Rate: 1 bolus; Site: left antecubital; db 19:36 Follow up: Response: No adverse reaction; IV Intake: 1000ml db 19:35 Drug: Famotidine IVP 20 mg Route: IVP; Site: left antecubital; db 19:35 Drug: Aspirin PO Chewable Tablet 81 mg Route: PO; db 19:35 Drug: Metoprolol PO 25 mg Route: PO; db 19:35 Drug: Enoxaparin Sub-Q 1 mg/kg Route: Sub-Q; Site: abdomen; db 19:36 Drug: Magnesium Sulfate IVPB 1 grams Route: IVPB; Infused Over: 1 hrs; Site: left db antecubital; Disposition Summary: 04/26/23 16:47 Hospitalization Ordered Hospitalization Status: Observation [facility] Provider: Rory Cartagena cha Condition: Fair louisa Problem: new louisa Symptoms: have improved louisa Bed/Room Type: Standard louisa Location: Telemetry/MedSurg (observation)(04/26/23 17:20) bd Room Assignment: 425(04/26/23 19:36) mw Diagnosis - Chest pain, unspecified louisa - Anemia, unspecified louisa - Alcohol abuse louisa - Tobacco abuse counseling louisa - Tobacco use louisa - Hypomagnesemia louisa Forms: - Medication Reconciliation Form louisa - SBAR form louisa Signatures: Dispatcher [employer] EDMS Jacquelyn Villareal bd Rhoda Downey RN Dale Miller MD MD cha Leal, Jahala RN RN jl7 Shanthi Shah RN RN db Corrections: (The following items were deleted from the chart) 15:39 15:10 Chest Single View+RAD.RAD.BRZ ordered. EDMS EDMS 17:20 16:47 Telemetry/MedSurg (Inpatient) louisa bd 17:20 16:47 louisa bd 19:36 17:20 bd mw
--- NOTE | 2023-04-26 16:48 | ER ---
Nurse's Notes [facility] Name: Arden Lux III Age: 62 yrs Sex: Male : 1960 Arrival Date: 04/26/2023 Time: 14:22 Bed 27 Private MD: Diagnosis: Chest pain, unspecified;Anemia, unspecified;Alcohol abuse;Tobacco abuse counseling;Tobacco use;Hypomagnesemia Presentation: 04/26 14:50 Chief complaint: EMS states: Toned out for dizziness and CP since yesterday. BP 88/58 jl7 on arrival, gave 1000 mL NS in route to ER, BP 110 systolic, and pt reports symptoms have completely resolved. Coronavirus screen: Ebola Screen: No symptoms or risks identified at this time. Initial Sepsis Screen: Does the patient meet any 2 criteria? No. Patient's initial sepsis screen is negative. Does the patient have a suspected source of infection? No. Patient's initial sepsis screen is negative. Risk Assessment: Do you want to hurt yourself or someone else? Patient reports no desire to harm self or others. Onset of symptoms was April 25, 2023. Care prior to arrival: Medication(s) given: Normal saline infusion, 1000 mL, IV initiated. 18 GA, in the left antecubital area, Glucose check: 129. 14:50 Method Of Arrival: EMS: [facility] 7 14:50 Acuity: LILIA 3 jl7 Triage Assessment: 14:53 General: Appears in no apparent distress. comfortable, Behavior is calm, cooperative, jl7 appropriate for age. Pain: Denies pain. Neuro: Level of Consciousness is awake, alert, obeys commands, Oriented to person, place, time, situation. Cardiovascular: Patient's skin is warm and dry. Respiratory: Airway is patent Respiratory effort is even, unlabored, Respiratory pattern is regular, symmetrical. Derm: Skin is pink, warm \T\ dry. Historical: - Allergies: 14:53 Sulfa (Sulfonamide Antibiotics); jl7 - Home Meds: 14:53 aspirin 81 mg Oral TbEC 1 tab once daily [Active]; esomeprazole magnesium 40 mg Oral jl7 cpDR 1 cap once daily [Active]; lisinopril 20 mg Oral tab 1 tab once daily [Active]; lorazepam 2 mg Oral tab 1 tab TID prn [Active]; simvastatin 40 mg Oral tab 1 tab nightly [Active]; - PMHx: 14:53 Anxiety; CVA; GERD; Hepatitis C; High Cholesterol; Hypertension; suicidal ideation; jl7 - Immunization history:: Adult Immunizations unknown. - Social history:: Smoking status: Patient reports the use of cigarette tobacco products. Screenin:34 [facility] ED Fall Risk Assessment (Adult) History of falling in the last 3 months, db including since admission Yes- single mechanical fall (1 pt) Confusion or Disorientation No (0 pts) Intoxicated or Sedated No (0 pts) Impaired Gait No (0 pts) Mobility Assist Device Used No (0 pt) Altered Elimination No (0 pt) Score/Fall Risk Level 0 - 2 = Low Risk Oriented to surroundings, Maintained a safe environment. Abuse screen: Denies threats or abuse. Denies injuries from another. Nutritional screening: No deficits noted. Tuberculosis screening: No symptoms or risk factors identified. Assessment: 15:30 Reassessment: Patient appears in no apparent distress at this time. Patient and/or db family updated on plan of care and expected duration. Pain level reassessed. Patient is alert, oriented x 3, equal unlabored respirations, skin warm/dry/pink. 16:30 Reassessment: Patient appears in no apparent distress at this time. Patient and/or db family updated on plan of care and expected duration. Pain level reassessed. Patient is alert, oriented x 3, equal unlabored respirations, skin warm/dry/pink. General: Appears in no apparent distress. comfortable, Behavior is calm, cooperative. 17:30 Reassessment: Patient appears in no apparent distress at this time. Patient and/or db family updated on plan of care and expected duration. Pain level reassessed. Neuro: Level of Consciousness is awake, alert, obeys commands, Oriented to person, place, time, situation. 18:30 Reassessment: Patient appears in no apparent distress at this time. Patient and/or db family updated on plan of care and expected duration. Pain level reassessed. Patient is alert, oriented x 3, equal unlabored respirations, skin warm/dry/pink. Neuro: Level of Consciousness is awake, alert, obeys commands, Oriented to person, place, time, situation. Vital Signs: 14:50 BP 118 / 63; Pulse 72; Resp 15; Temp 97.9; Pulse Ox 100% ; Weight 70.31 kg; Height 5 jl7 ft. 6 in. ; Pain 0/10; 16:15 BP 128 / 74; Pulse 77; Resp 18; Pulse Ox 100% ; db 17:45 BP 129 / 64; Pulse 64; Resp 18; Pulse Ox 100% ; db 18:45 BP 132 / 72; Pulse 65; Resp 18; Pulse Ox 100% on R/A; db 14:50 Body Mass Index 25.02 (70.31 kg, 167.64 cm) 7 14:50 Pain Scale: Adult 7 ED Course: 14:44 Patient arrived in ED. db 14:47 Dale Godoy MD is Attending Physician. [facility] 14:53 Triage completed. jl7 14:53 Arm band placed on right wrist. jl7 15:32 CT Head Brain wo Cont In Process Unspecified. EDMS 16:04 Chest Single View In Process Unspecified. EDMS 16:09 Shanthi Shah RN is Primary Nurse. db 16:41 Rory Cartagena MD is Hospitalizing Provider. louisa 19:28 Maintain EMS IV. Gauge \T\ site: 18 G left AC. db 19:35 Patient has correct armband on for positive identification. Bed in low position. Call db light in reach. Side rails up X2. Client placed on continuous cardiac and pulse oximetry monitoring. NIBP monitoring applied. Warm blanket given. 19:36 No provider procedures requiring assistance completed. Patient admitted, IV remains in db place. Administered Medications: 15:45 Drug: NS 0.9% IV 1000 ml Route: IV; Rate: 1 bolus; Site: left antecubital; db 19:36 Follow up: Response: No adverse reaction; IV Intake: 1000ml db 19:35 Drug: Famotidine IVP 20 mg Route: IVP; Site: left antecubital; db 19:35 Drug: Aspirin PO Chewable Tablet 81 mg Route: PO; db 19:35 Drug: Metoprolol PO 25 mg Route: PO; db 19:35 Drug: Enoxaparin Sub-Q 1 mg/kg Route: Sub-Q; Site: abdomen; db 19:36 Drug: Magnesium Sulfate IVPB 1 grams Route: IVPB; Infused Over: 1 hrs; Site: left db antecubital; Medication: 19:36 VIS not applicable for this client. db Intake: 19:36 IV: 1000ml; Total: 1000ml. db Outcome: 16:47 Decision to Hospitalize by Provider. louisa 19:36 Admitted to ER Hold. Please see [facility] for further documentation. db 19:36 Condition: stable 19:36 Instructed on the need for admit. 20:38 Patient left the ED. kris Signatures: Dispatcher [employer] EDBonita Arellano RN RN Dale Lopez MD MD cha Leal, Jahala, RN RN jl7 Shanthi Shah RN RN db Corrections: (The following items were deleted from the chart) 15:27 14:50 BP 118 / 63; Pulse 72bpm; Resp 15bpm; Pulse Ox 100%; Temp 15F; 70.31 kg; Height 5 jl7 ft. 6 in.; BMI: 25.0; Pain 0/10, Adult; jl7 15:39 15:24 In radiology for Chest Single View+RAD.RAD.BRZ. EDNM EDMS
[2023-04-26] MEDS ORDERED: ACETAMINOPHEN 325 MG TABLET PO PRN (18:08)
[2023-04-26] MEDS ORDERED: HYDROCODONE/APAP 5/325 MG TAB PO PRN (18:08)
[2023-04-26] MEDS ORDERED: ONDANSETRON 4 MG/2 ML VIAL IV PRN (18:11)
--- NOTE | 2023-04-26 18:16 | P.HP ---
Certification for Inpatient Patient admitted to: Observation With expected LOS: <2 Midnights Patient will require the following post-hospital care: None Practitioner: I am a practitioner with admitting privileges, knowledge of patient current condition, hospital course, and medical plan of care. Services: Services provided to patient in accordance with Admission requirements found in Title 42 Section 412.3 of the Code of Federal Regulations Patient History Date of Service: 04/26/23 Reason for admission: Chest pain History of Present Illness: Patient is a 62-year-old male with a past medical history significant for anxiety disorder, CVA, GERD, hep C, hyperlipidemia, hypertension, nicotine dependence, alcohol abuse who presents with complaint of chest pain located in the substernal chest area with radiation to the left chest wall onset yesterday. Patient rated pain as 8/10 in severity and described pain as pressure in quality. Patient reported associated signs and symptoms of headache and dizziness. Patient denies any other signs and symptoms. Symptoms are aggravated or relieved by nothing. Patient decided to present to the hospital due to worsening symptoms. Allergies Sulfa (Sulfonamide A Allergy (Uncoded 05/06/17 07:00) Unknown Sulfa (Sulfonamide An Allergy (Uncoded 09/08/17 02:18) Unknown Sulfa (Sulfonamide Antibiot Allergy (Uncoded 08/23/17 10:51) Unknown - Past Medical/Surgical History Diabetic: No -: Hypertension -: History of CVA -: Hyperlipidemia -: Erosive gastritis -: Abdominal aortic aneurysm -: Enlarged prostate -: Alcohol abuse -: Tobacco abuse -: Cocaine abuse Past Surgical History: Reviewed- Non-Contributory Psychosocial/ Personal History: Patient is - Social History Smoking Status: Current every day smoker Counseled patient to stop smoking for: less than 10 minutes Smoking therapy provided: Yes Patient receptive to therapy: Yes Alcohol use: Yes CD- Drugs: Yes Caffeine use: Yes Place of Residence: Home Review of Systems General: Unremarkable Eyes: Unremarkable ENT: Unremarkable Respiratory: Unremarkable Cardiovascular: Chest Pain Gastrointestinal: Unremarkable Genitourinary: Unremarkable Musculoskeletal: Unremarkable Integumentary: Unremarkable Neurological: Other (CHRISTIANSON, dizziness) Lymphatics: Unremarkable Physical Examination - Physical Exam General: Alert, In no apparent distress, Oriented x3, Cooperative HEENT: Atraumatic, PERRLA, Mucous membr. moist/pink, EOMI, Sclerae nonicteric Neck: Supple, 2+ carotid pulse no bruit, No LAD, Without JVD or thyroid abnormality Respiratory: Clear to auscultation bilaterally, Normal air movement Cardiovascular: No edema, Regular rate/rhythm, Normal S1 S2 Capillary refill: <2 Seconds Gastrointestinal: Normal bowel sounds, Soft and benign, No tenderness Musculoskeletal: No clubbing, No swelling, No tenderness Integumentary: No rashes, No breakdown, No significant lesion Neurological: Normal gait, Normal speech, Normal strength at 5/5 x4 extr, Normal tone, Normal affect Lymphatics: No axilla or inguinal lymphadenopathy - Studies Laboratory Data (last 24 hrs) 04/26/23 15:21: PT 11.7, INR 1.06 04/26/23 15:21: WBC 4.70, Hgb 9.5 L, Hct 27.4 L, Plt Count 123 L 04/26/23 15:21: Sodium 138, Potassium 3.8, BUN 22 H, Creatinine 1.44 H, Glucose 118 H, Magnesium 1.5 L, Total Bilirubin 0.4, AST 29, ALT 33, Alkaline Phosphatase 54, Lipase 64 Assessment and Plan - Plan -- Chest pain. To rule out ACS. Will trend serial troponins-negative so far. Echocardiogram pending to assess cardiac structures and functions. Telemetry to monitor for any significant arrhythmia. Cardiology consulted. Will await further recommendations from satellite manager. --Hyperlipidemia. Continue statin. --History of CVA. Continue aspirin and statin. --GERD. Continue home medication. --History of hep C. Continue supportive care. --Nicotine dependence. Patient counseled on tobacco cessation and placed on nicotine patch. --Alcohol abuse. Patient reports that he drinks every 3 to 4 days heavily. Denies any withdrawal symptoms from alcohol cessation. Alcohol withdrawal assessment protocol in place. --Anxiety disorder. Continue home medication. --Anemia of chronic disease. H&H stable. We will continue to monitor hemogl obin and transfuse if less than 7.0. --CKD 3A. Stable. We will continue to monitor renal functions. --DVT prophylaxis with Lovenox subQ. Discharge Plan: Home Plan to discharge in: 48 Hours - Advance Directives Does patient have a Living Will: No Does patient have a Durable POA for Healthcare: No - Code Status/Comfort Care Code Status Assessed: Yes Physician Review: Patient Assessed, Agree with Above Assessment and Plan Critical Care: No
[2023-04-26] MEDS: ENOXAPARIN 40 MG/0.4 ML SQ SCH (18:30)
[2023-04-26] MEDS ORDERED: ASPIRIN 81 MG CHEWABLE TABLET ONE (19:10)
[2023-04-26] MEDS ORDERED: MAGNESIUM SULFATE 1 gm IVPB 1 GM/100 ML BAG IV ONE (19:10)
[2023-04-26] MEDS ORDERED: METOPROLOL TAR 25 MG TAB ONE (19:10)
[2023-04-26] MEDS ORDERED: ENOXAPARIN 80 MG/0.8 ML SQ ONE (19:10)
[2023-04-26] MEDS ORDERED: FAMOTIDINE 20 MG/2 ML VIAL IV ONE (19:11)
[2023-04-26] MEDS ORDERED: ATORVASTATIN 40 MG TAB PO SCH (21:00)
[2023-04-26 21:02] VITALS: BMI 23.8
[2023-04-26 21:15] LABS: Magnesium 1.7 mg/dL (1.6-2.4); Phosphorus 2.8 mg/dL (2.5-4.9)
[2023-04-26 21:33] LABS: Thyroid Stimulating Hormone 5.29 uIU/mL (0.358-3.740)
[2023-04-26] MEDS: NICOTINE 21 MG/PAT TD SCH (22:29)
[2023-04-26] MEDS ORDERED: MELATONIN 5 MG TABLET PO PRN (23:34)
[2023-04-27 03:11] LABS: Hematocrit 25.1 % (39.6-49.0); Lymphocytes % 44.2 % (15.3-44.8); MCV 97.5 fL (80-100); MPV 8.3 fL (7.6-11.3); RBC Red Blood Cell Count 2.57 M/uL (4.33-5.43)
[2023-04-27 03:33] LABS: Potassium 4.4 mEq/L (3.5-5.1)
[2023-04-27 03:39] LABS: Magnesium 2.1 mg/dL (1.6-2.4)
--- NOTE | 2023-04-27 07:16 | EKG ---
Test Date: 2023-04-26 Test Time: 15:04:19 Community Relations Officer: LINO MEASUREMENT RESULTS: Intervals: Rate: 70 [place]: 170 QRSD: 74 QT: 416 QTc: 449 [place]: P: 76 [place]: 170 QRS: 42 T: 95 INTERPRETIVE STATEMENTS: Normal sinus rhythm Nonspecific ST abnormality Abnormal ECG Compared to ECG 07/04/2020 10:47:48 ST (T wave) deviation now present Electronically Signed On 04-27-23 07:14:03 CDT by Grayson Cardona
[2023-04-27] MEDS ORDERED: REGADENOSON 0.4 MG/5 ML SYR IV ONE (08:02)
[2023-04-27] MEDS: NICOTINE 21 MG/PAT TD SCH (09:00)
[2023-04-27] MEDS: ENOXAPARIN 40 MG/0.4 ML SQ SCH (09:00)
[2023-04-27] MEDS ORDERED: ASPIRIN 81 MG CHEWABLE TABLET PO SCH (09:00)
[2023-04-27 10:52] VITALS: O2SAT 98
--- NOTE | 2023-04-27 10:54 | RAD REPORT ---
EXAM DESCRIPTION: US - Liver Only - 04/27/2023 9:32 am CLINICAL HISTORY: thrombocytopenia, anemia - eval for cirrhosis Abdominal pain COMPARISON: AAA Screening dated 03/10/2017 FINDINGS: There is a heterogenous appearance to the liver parenchyma. Liver size is within normal li mits.Anterior posterior dimension of the liver measures 14 cm.No focal liver lesion or intrahepatic b iliary dilatation.No evidence of portal vein thrombosis. Several gallstones likely present and gallbladder. The spleen is within normal range measuring 10 cm. IMPRESSION: There is a heterogenous appearance to the liver parenchyma noted suggesting chronic infl ammation or underlying fatty infiltration. Cholelithiasis.
--- NOTE | 2023-04-27 12:11 | RAD REPORT ---
EXAM DESCRIPTION: NM - Rest Stress Cardiac Imaging - 04/27/2023 11:58 am CLINICAL HISTORY: CP Chest pain. COMPARISON: No comparisons TECHNIQUE: The patient was administered approximately 10mCi of Tc 99m Sestamibi prior to resting SPE CT imaging of the heart. The patient was then administered approximately 30 mCi of Tc 99m Sestamibi f ollowing exercise or pharmacologic stress. Multiplanar SPECT images were reviewed. FINDINGS: No stress induced ischemic defect is seen to suggest stress induced ischemia. No fixed def ect is seen to suggest hibernating myocardium or scarred myocardium. The end diastolic volume is 84 ml, the end systolic volume is 30 ml, and the ejection fraction is 65 %. IMPRESSION: No stress induced ischemia.
--- NOTE | 2023-04-27 13:02 | CON ---
Date of Consultation: 04/27/2023 Reason For Consultation: Atypical chest pain, headache and dizziness. History Of Present Illness: Mr. Lux is 62. Had a CVA in 2011. Has a history of anxiety, hepatiti s C, hypertension, dyslipidemia, and gastroesophageal reflux disease. Never had any cardiac history. Came in with right-sided shoulder, chest pain that radiates to the back without any nausea, vomitin g, PND, orthopnea, pedal edema, palpitation, or syncope. ID has been ruled out. Creatinine is 1.44, triglyceride of 262, hemoglobin 8.5, negative chest x-ray, and negative EKG. The patient is fairly asymptomatic now. Allergies: HE IS ALLERGIC TO SULFA. Review of Systems: Negative. Social History: Negative. Family History: Negative. Medications: Include iron, aspirin, lisinopril, and Protonix. Physical Examination: Vital Signs: Stable, afebrile. HEENT: Negative. Neck: Supple with no bruit. Chest: Clear to auscultation and percussion. Cardiac: Revealed a regular rhythm and rate. No murmurs, gallops, or rubs. Abdomen: Benign. Extremities: Revealed no clubbing, cyanosis, or edema. Diagnostic Data: As stated earlier. Impression And Plan: Atypical chest pain in a patient with hypertension, dyslipidemia, history of ce rebrovascular accident. He is high risk. He has renal insufficiency and mild anemia. He should pro bably be on some form of triglyceride medication, not to interfere with his liver because he has hepa titis C. He may just have to watch his carbohydrate. Nevertheless, he has an echo pending today and a stress test pending today. We will see what that shows before he goes home. CARRIE/SARAH Voice ID: [id number] Report ID: [id number]
[2023-04-27 14:26] LABS: Hematocrit 26.2 % (39.6-49.0)
[2023-04-27 15:51] VITALS: BP 150/70; TEMP 98.7
--- NOTE | 2023-04-27 18:44 | P.DS ---
Admission Date: 04/26/23 Discharge Date: 04/27/23 Primary Care Provider: Josr Disposition: ROUTINE DISCHARGE Discharge Condition: GOOD Reason for Admission: Chest pain Consultations: 1. Cardiology Hospital Course: DIAGNOSES: # Atypical Chest Pain - suspect non-cardiac # Likely KDIGO Stage I Acute Kidney Injury on Chronic Kidney Disease Stage III # History of Cerebrovascular Accident # Hepatitis C s/p recent treatment for Sofosbuvir-Velpatasvir # Subclinical Hypothyroidism # Alcohol Use Disorder # Anxiety # Gastroesophageal Reflux Disease # Cholelithiasis HOSPITAL COURSE: Mr. Arden Lux is a 62 year old male with a past medical history significant for prior cerebrovascular accident, alcohol use disorder, hepatitis C s/p recent completion of sofosbuvir-velpatasvir, chronic kidney disease stage III, anxiety, and gastroesophageal reflux disease who was admitted to the [facility] on 04/26/2023 for chest pain. He was admitted to the Medicine service. Upon further evaluation, his EKG was without STEMI criteria. His d-dimer was 456. His serial troponin were 3.9 -> 4.3 -> 4.6. His chest x-ray revealed, "no acute intrathoracic process suspected." Cardiology was consulted and he was evaluated by Dr. Cardona. He recommended a cardiac stress test, which revealed, "no stress induced ischemia." Dr. Cardona has cleared him for discharge with outpatient follow-up. During his evaluation, a liver ultrasound was obtained, which revealed, "there is a heterogenous appearance to the liver parenchyma noted suggesting chronic inflammation or underlying fatty infiltration. Cholelithiasis." He was informed of these findings and stated that he is aware of these findings. He recently completed a course of sofosbuvir-velpatasvir. He was advised to follow-up with Dr. Anaya, for further evaluation. On 04/27/2023, he was seen on rounds and deemed medically stable for discharge. He was discharged with instructions to schedule follow-up appointments with his PCP (Dr. Ovalles), his Appeals Specialist (Dr. Anaya), and with Cardiology (Dr. Cardona). He was given the opportunity to ask questions and reported no further questions. Furthermore, all questions were answered to the best of my ability. A copy of this discharge summary will be sent to the above providers to facilitate continuity of care. Today, I personally spent 25 minutes on his case, of which greater than 50% of the time was spent in patient education, counseling, and coordination of care as described above. Vital Signs/Physical Exam: Temp Pulse Resp BP Pulse Ox 98.7 F 63 18 150/70 H 99 04/27/23 15:50 04/27/23 15:50 04/27/23 15:50 04/27/23 15:50 04/27/23 15:50 General: Alert, In no apparent distress, Oriented x3 HEENT: Atraumatic, Sclerae nonicteric Neck: JVD not distended Respiratory: Clear to auscultation bilaterally, Normal air movement Cardiovascular: No edema, Regular rate/rhythm, Normal S1 S2, No gallops, No rubs, No murmurs Gastrointestinal: Normal bowel sounds, Soft and benign, Non-distended, No tenderness, No rebound, No guarding Musculoskeletal: No clubbing Integumentary: No rashes Neurological: Normal speech, Normal affect Laboratory Data at Discharge: WBC 4.50 thou/uL (4.3-10.9) 04/27/23 02:51 Hgb 8.9 g/dL (13.6-17.9) L 04/27/23 14:05 Hct 26.2 % (39.6-49.0) L 04/27/23 14:05 Plt Count 111 thou/uL (152-406) L 04/27/23 02:51 PT 11.7 SECONDS (9.5-12.5) 04/26/23 15:21 INR 1.06 04/26/23 15:21 Sodium 142 mEq/L (136-145) 04/27/23 02:51 Potassium 4.4 mEq/L (3.5-5.1) D 04/27/23 02:51 BUN 16 mg/dL (7-18) 04/27/23 02:51 Creatinine 1.18 mg/dL (0.70-1.30) 04/27/23 02:51 Glucose 106 mg/dL (74-106) 04/27/23 02:51 Phosphorus 2.8 mg/dL (2.5-4.9) 04/26/23 20:36 Magnesium 2.1 mg/dL (1.6-2.4) 04/27/23 02:51 Total Bilirubin 0.4 mg/dL (0.2-1.0) 04/26/23 15:21 AST 29 U/L (15-37) 04/26/23 15:21 ALT 33 U/L (16-61) 04/26/23 15:21 Alkaline Phosphatase 54 U/L (45-117) 04/26/23 15:21 Triglycerides 262 mg/dL (<150) H 04/26/23 20:36 Cholesterol 193 mg/dL (<200) 04/26/23 20:36 HDL Cholesterol 35 mg/dL (40-60) L 04/26/23 20:36 Cholesterol/HDL Ratio 5.51 04/26/23 20:36 Lipase 64 U/L (13-75) 04/26/23 15:21 Home Medications: Aspirin Chewable [Aspirin Chewable*] 81 mg PO DAILY 04/26/23 Ferrous Sulfate 325 mg PO DAILY 04/26/23 Fluoxetine HCl [Prozac] 40 mg PO DAILY 04/26/23 Lisinopril [Zestril] 10 mg PO DAILY 04/26/23 Multivitamin 1 tab PO DAILY 04/26/23 Pantoprazole [Protonix Tab*] 40 mg PO Q48H 04/26/23 Physician Discharge Instructions: 1. Please call and schedule a follow-up appointment with your PCP (Dr. Ovalles) in 3-5 days - Please have him repeat your thyroid levels 2. Please call and schedule a follow-up appointment with Cardiology (Dr. Cardona) in 5-7 days 3. Please call and schedule a follow-up appointment with your Appeals Specialist (Dr. Anaya) in 5-7 days - Please have him follow-up on your abnormal liver studies and gallbladder stones Diet: AHA Activity: Ad yamila Followup: Aureliano Ovalles MD [ACTIVE - CAN ADMIT] - Grayson Cardona MD [ACTIVE - CAN ADMIT] - Jonathan Anaya MD [OUTSIDE PHYSICIAN] - Time spent managing pt's care (in minutes): 25
--- NOTE | 2023-04-28 07:24 | ECHO ---
HEIGHT: 5 ft 6 in WEIGHT: 148 lb 0 oz DATE OF STUDY: 04/27/[address]: Cuong Bravo 2-DIMENSIONAL: YES M.MODE: YES DOPPLER: YES COLOR FLOW: YES TDS: PORTABLE: YES DEFINITY: BUBBLE STUDY: DIAGNOSIS: CHEST PAIN CARDIAC HISTORY: CATHERIZATION: NO SURGERY: NO PROSTHETIC VALVE: NO PACEMAKER: NO MEASUREMENTS (cm) DIASTOLIC (NORMALS) SYSTOLIC (NORMALS) IVSd 1.2 (0.6-1.2) LA Diam 2.5 (1.9-4.0) LVEF 53% LVIDd 3.1 (3.5-5.7) LVIDs 2.3 (2.0-3.5) %FS 26% LVPWd 1.2 (0.6-1.2) Ao Diam 2.5 (2.0-3.7) 2 DIMENSIONAL ASSESSMENT: RIGHT ATRIUM: NORMAL LEFT ATRIUM: NORMAL RIGHT VENTRICLE: NORMAL LEFT VENTRICLE: NORMAL TRICUSPID VALVE: MILD TRICUSPID REGURGITATION MITRAL VALVE: MILD MITRAL REGURGITATION PULMONIC VALVE: NORMAL AORTIC VALVE: NORMAL PERICARDIAL EFFUSION: NONE AORTIC ROOT: NORMAL LEFT VENTRICULAR WALL MOTION: NORMAL DOPPLER/COLOR FLOW: MILD TRICUSPID REGURGITATION. MILD MITRAL REGURGITATION COMMENTS: 1. NORMAL LEFT VENTRICULAR EJECTION FRACTION 55-60% 2. NORMAL WALL MOTION 3. NORMAL DIASTOLIC FUNCTION 4. MILD MITRAL REGURGITATION 5. MILD TRICUSPID REGURGITATION TECHNOLOGIST: JAM BARTON
--- NOTE | 2023-04-28 07:42 | TREADPHA ---
DX: CHEST PAIN Date of Study: 04/27/2023 Ht: 5' 6 " Wt: 148 lb 0 oz Consulting Physician: FRANK MEDICATIONS: TYLENOL, NORCO, ASPIRIN, LIPITOR, LOVENOX, MELATONIN, NICODERM, ZOFRAN HISTORY: 62 YEAR OLD MALE WITH COMPLIANTS OF CHEST PAIN. HISTORY OF CEREBRAL VASCULAR ACCIDENT, HYPERLIPIDEMIA, HALF A PACK PER DAY SMOKER FOR FORTY YEARS. DRINKS FOUR BEERS PER DAY, HYPERTENSION, ANEMIA, HEPITITIS C, CHRONIC KIDNEY DISEASE PHYSICIAL EXAMINATION: RESTING B.P.: 130/72 RESTING H.R.: 55 RESTING EKG: NORMAL SINUS RHYTHM, WITHIN NORMAL LIMITS PROTOCOL: PHARMACOLOGIC EXERCISE TIME: 3:30 B.P. AT PEAK STRESS: 111/51 IMPRESSION: LEXISCAN INJECTED. CARDIOLITE GIVEN PER PROTOCOL. SEE NUCLEAR MEDICINE REPORT. DENIES CHEST PAIN. COMPLAINTS OF SHORTNESS OF BREATH. NO SUPRAVENTRICULAR TACHYCARDIA, VENTRICULAR TACHYCARDIA, PREMATURE VENTRICULAR COMPLEXES OR PREMATURE ATRIAL COMPLEXES NOTED THROUGHOUT PROCEDURE. NO ELECTROCARDIOGRAM CHANGES OF ISCHEMIA WITH LEXISCAN.
--- NOTE | 2023-04-29 14:52 | EKG ---
Test Date: 2023-04-27 Test Time: 14:51:40 Lens Assistant: RAMON MEASUREMENT RESULTS: Intervals: Rate: 65 CT: 168 QRSD: 76 QT: 404 QTc: 420 [place]: P: 67 CT: 168 QRS: 15 T: 19 INTERPRETIVE STATEMENTS: Normal sinus rhythm Normal ECG Compared to ECG 04/26/2023 15:04:19 ST (T wave) deviation no longer present Electronically Signed On 04-29-23 14:45:09 CDT by Grayson Cardona
== END 2023-04-27 19:40 | disposition home or self-care (01) ==
LOC: ER 14:22 → ERHOLD 18:07 → 4TH 21:40
PROVIDERS: ADMIT Internal Medicine; ATTEND Internal Medicine
DX: R07.89 Other chest pain (principal); F41.9 Anxiety disorder, unspecified; K21.9 Gastro-esophageal reflux disease without esophagitis; E78.5 Hyperlipidemia, unspecified; I10 Essential (primary) hypertension; F17.210 Nicotine dependence, cigarettes, uncomplicated; B19.20 Unspecified viral hepatitis C without hepatic coma; F10.10 Alcohol abuse, uncomplicated; E03.9 Hypothyroidism, unspecified; N18.31 Chronic kidney disease, stage 3a; D63.1 Anemia in chronic kidney disease; R51.9 Headache, unspecified; R42 Dizziness and giddiness; K80.20 Calculus of gallbladder without cholecystitis without obstruction; Z86.73 Personal history of transient ischemic attack (TIA), and cerebral infarction without residual deficits; Z88.2 Allergy status to sulfonamides
CPT/HCPCS: 93005; 93017; 93306; 85025 ×2; 81001; 80048 ×2; 36415 ×2; 83735 ×3; 84100; 85610; 80061; 85379; 80076; 84443; 85018; 85014; 83036; 84484 ×3; 84439; 83690; 83880; 70450; 71045; 76705; 78452; 96375; 96372; 96374; 99285; J3475; J2785; J7030; A9500; G0378; J1650

== ENCOUNTER 2023-05-16 10:45 | Emergency (ER) | payer MEDICARE ==
--- OUTSIDE RECORDS SUMMARY | 2023-05-16 10:50 | XMS REPORT | Continuity of Care Document ---
:1960 Author Organization [facility] t Address [address] [place] [address] Care Team Providers Name Role Phone Rafael-Fabiáno_A_AH Attending Clinician Unavailable Rafael-Fabiáno_A_AH Admitting Clinician Unavailable Payers Payer Name Policy Type Policy Number Effective Date Expiration Date S harpreet [facility] [id number] 2020 (MEDICARE 00:00:00 REPLACEMENT HMO) [employer] [place] - [id number] 2019 [facility] (MEDICARE 00:00:00 REPLACEMENT/[employer] GE - HMO) Problems This patient has no known problems. Allergies, Adverse Reactions, Alerts This patient has no known allergies or adverse reactions. Medications This patient has no known medications. Procedures This patient has no known procedures. Encounters Start End Encounter Admission Attending Care Care Encounter Source Date/Time Date/Time Type Type Clinicians Facility Department ID 2022-06-04 2022-06-04 [id number] 03:40:00 0715 [facility] 2022-06-04 2022-06-04 Outpatient [facility] [id number] [facility] 00:00:00 00:00:00 0506 [facility] 2021-12-14 2021-12-14 [facility] [id number] [facility] 08:00:00 08:00:00 0124 [facility] 2021-12-04 2021-12-04 Outpatient [facility] [id number] [facility] 09:00:00 09:00:00 0114 Med[facility] l Group 2021-03-18 2021-03-18 [id number] 04:31:00 04:31:00 _A_AH [id number] Family Practic e 2020-01-17 2020-01-17 Outpatient Rafael-Mbayo [facility] [phone] [facility] 04:19:00 04:19:00 _A_AH [id number] Family Practic e 2020-01-17 2020-01-17 Outpatient Rafael-Mbayo [facility] [id number] [facility] 04:19:00 04:19:00 _A_AH [id number] Family Practic e 2020-01-17 2020-01-17 Outpatient Rafael-Mbayo [facility] [id number] [facility] 04:19:00 04:19:00 _A_AH [id number] Family Practic e 2020-01-17 2020-01-17 Outpatient Rafael-Mbayo [facility] [id number] [facility] 04:19:00 04:19:00 _A_AH [id number] Family Practic e 2020-01-17 2020-01-17 Outpatient Rafael-Mbayo [facility] [phone] [facility] 04:19:00 04:19:00 _A_AH [id number] Family Practic e Results This patient has no known results.
[2023-05-16 11:06] LABS: Absolute Lymphocytes (CBC) 3.3 K/uL (0.7-4.9); Hematocrit 29.8 % (39.6-49.0); MCV 97.6 fL (80-100); MPV 7.6 fL (7.6-11.3); RBC Red Blood Cell Count 3.05 M/uL (4.33-5.43)
[2023-05-16 11:13] LABS: Protime INR 1.1
[2023-05-16] MEDS ORDERED: NA CHLORIDE 0.9% 500 ML ONE (11:20)
[2023-05-16 11:24] LABS: ALT/SGPT 51 U/L (16-61); AST/SGOT 30 U/L (15-37); Albumin 4.4 g/dL (3.4-5.0); Alkaline Phosphatase 53 U/L (45-117); BUN Blood Urea Nitrogen 30 mg/dL (7-18); Bicarbonate 19 mEq/L (21-32); Bilirubin Direct 0.1 mg/dL (0-0.2); Bilirubin Indirect, Calculated 0.2 mg/dL (0.2-0.8); Bilirubin Total 0.3 mg/dL (0.2-1.0); Glomerular Filtration Rate 39 ml/min (=/>90); Glucose Level 85 mg/dL (74-106); Magnesium 1.9 mg/dL (1.6-2.4); Potassium 4.5 mEq/L (3.5-5.1); Protein, Total 8.1 g/dL (6.4-8.2); Sodium Level 139 mEq/L (136-145)
[2023-05-16] MEDS ORDERED: Magnesium Sulfate 2gm IVPB 2 G/50 ML BAG IV ONE (11:45)
[2023-05-16] MEDS ORDERED: NA CHLORIDE 0.9% 1,000 ML ONE (12:38)
[2023-05-16 14:01] LABS: Barbiturates NEGATIVE (NEGATIVE); Benzodiazepines NEGATIVE (NEGATIVE); Cocaine NEGATIVE (NEGATIVE); METHAMPHETAM NEGATIVE (NEGATIVE); Methadone NEGATIVE (NEGATIVE); Opiates NEGATIVE (NEGATIVE); Phencyclidine NEGATIVE (NEGATIVE); THC Cannibis NEGATIVE (NEGATIVE)
--- NOTE | 2023-05-16 15:12 | EDPHYS ---
Physician Documentation [facility] Name: Arden Lux III Age: 62 yrs Sex: Male : 1960 Arrival Date: 05/16/2023 Time: 10:45 Bed 3 Private MD: ED Physician Buck Hopson HPI: 05/16 10:49 This 62 yrs old Male presents to ER via Unassigned with complaints of bs3 Accidental Overdose. 10:49 62-year-old male brought in by EMS for possible accidental overdose on diphenhydramine bs3 per EMS he was found by an empty bottle of diphenhydramine 50 mg which contained 100 pills unknown how many he actually took patient states he thinks he took less than 50 he notes that he abuses wdvc-cby-gvifmup medications and was not trying to hurt himself or kill himself patient states that after taking this he became wobbly on his feet denies chest pain shortness of breath nausea vomiting or anything else bothering him, he states he did not want to hurt or kill himself and he will never do this again. . Historical: - Allergies: 10:52 Sulfa (Sulfonamide Antibiotics); ph - Home Meds: 10:52 aspirin 81 mg Oral TbEC 1 tab once daily [Active]; esomeprazole magnesium 40 mg Oral ph cpDR 1 cap once daily [Active]; lisinopril 20 mg Oral tab 1 tab once daily [Active]; lorazepam 2 mg Oral tab 1 tab TID prn [Active]; simvastatin 40 mg Oral tab 1 tab nightly [Active]; - PMHx: 10:52 Anxiety; CVA; GERD; Hepatitis C; High Cholesterol; Hypertension; suicidal ideation; ph - Immunization history:: Adult Immunizations unknown. - Social history:: Smoking status: Patient reports the use of cigarette tobacco products, smokes one-half pack cigarettes per day. ROS: 10:49 Constitutional: Negative for fever, chills bs3 10:49 All other systems are negative. Exam: 10:49 Constitutional: This is a well developed, well nourished patient who is awake, alert, bs3 and in no acute distress. Head/Face: Normocephalic, atraumatic. Eyes: Pupils equal round and reactive to light, extra-ocular motions intact. Lids and lashes normal. ENT: mmm, no posterior phyarngeal erythema Neck: Trachea midline, no thyromegaly, no neck stiffness Chest/axilla: Normal chest wall appearance and motion. Nontender with no deformity. No lesions are appreciated. Cardiovascular: Tachycardic, no murmur Respiratory: Lungs have equal breath sounds bilaterally, clear to auscultation, no respiratory distress Abdomen/GI: Soft, non-tender, no rebound or guarding Skin: Warm, dry with normal turgor. Normal color with no rashes, no lesions, and no evidence of cellulitis. MS/ Extremity: Pulses equal, no cyanosis. Neurovascular intact. Full, normal range of motion. Neuro: Slurred speech no focal deficits cranial nerves II through XII intact Psych: Awake, alert, with orientation to person, place and time. Behavior, mood, and affect are within normal limits. 11:08 nsr 100, prolonged qt 497. no st elevation or depression bs3 Vital Signs: 10:49 BP 151 / 83; Pulse 110; Resp 18; Temp 97.8; Pulse Ox 98% on R/A; Weight 72.57 kg; ph 12:36 BP 136 / 88; Pulse 83; Resp 18; Pulse Ox 99% on R/A; ph 13:45 BP 138 / 78; Pulse 82; Resp 18; Pulse Ox 98% on R/A; ss 15:00 BP 127 / 86; Pulse 81; Resp 18; Temp 97.9; Pulse Ox 99% on R/A; ph MDM: 10:49 Differential diagnosis: Ingestion/exposure to Diphenhydramine polypharmacy. Data bs3 reviewed: vital signs, nurses notes. ED course: will observe, d/w poison center, given potential polysubstance, will avoid physostigmine, consider bicarb for seizure, . 10:56 Patient medically screened. bs3 11:11 ED course: . bs3 11:11 ED course: d/w tox, rec mag for qtc, rec f/u urinary retention.. bs3 11:13 ED course: . bs3 11:14 ED course: per tox, rec observation 6-8hr unless symptoms resolve sooner. bs3 11:32 ED course: Discussed with family at bedside who states that he may have taken this to bs3 intentionally kill himself she notes a long history of depression and prior suicidal attempts will have patient evaluated by psychiatry patient amenable to staying he states he does need help. 11:36 ED course: creatine slightly elevated from baseline, likely dehydration, will hydrate. bs3 14:46 ED course: pt medically clear, feeling much better, pt now does not want bs3 hospitalization, will have psych eval pt. 15:09 ED course: I was called to the patient's bed at approximately 3:04pm as the patient bs3 wanted to go home I talked at length with the patient I discussed his 's concern he is adamantly denying that he wanted to hurt himself or anyone else I advised her that if she had back concern she can call 911 however she did not want to do that my suspicion is that she is concerned that he may accidentally hurt himself rather than intentionally I talked with the patient at length return precautions given. 15:11 ED course: Patient left prior to me being able to print out discharge paperwork. bs3 05/16 10:48 Order name: Acetaminophen; Complete Time: 11:35 3 05/16 10:48 Order name: Basic Metabolic Panel; Complete Time: 11:35 3 05/16 10:48 Order name: CBC with Diff; Complete Time: 11:35 3 05/16 10:48 Order name: ETOH Level; Complete Time: 11:35 3 05/16 10:48 Order name: Hepatic Function; Complete Time: 11:35 3 05/16 10:48 Order name: PT-INR; Complete Time: 11:35 3 05/16 10:48 Order name: Ptt, Activated; Complete Time: 11:35 3 05/16 10:48 Order name: Salicylate; Complete Time: 11:35 3 05/16 10:48 Order name: Urine Drug Screen; Complete Time: 14:02 3 05/16 11:17 Order name: Magnesium; Complete Time: 11:35 EDDE 05/16 10:48 Order name: EKG; Complete Time: 10:49 3 05/16 10:48 Order name: EKG - Nurse/Tech; Complete Time: 11:14 3 05/16 10:48 Order name: IV Saline Lock; Complete Time: 10:56 3 05/16 10:48 Order name: Labs collected and sent; Complete Time: 10:56 bs3 05/16 10:48 Order name: Suicide Screening ([place]); Complete Time: 11:14 bs3 Administered Medications: 11:13 Drug: NS 0.9% IV 500 ml Volume: 500 ml; Route: IV; Rate: 1 bolus; Site: right jl7 antecubital; 12:00 Follow up: Response: No adverse reaction; IV Status: Completed infusion ph 12:35 Drug: Magnesium Sulfate IVPB 2 grams Route: IVPB; Infused Over: 2 hrs; Site: right ph antecubital; 14:35 Follow up: Response: No adverse reaction; IV Status: Completed infusion ph 12:35 Drug: NS 0.9% IV 1000 ml Route: IV; Rate: 1000 ml; Site: right antecubital; ph 14:00 Follow up: Response: No adverse reaction; IV Status: Completed infusion ph Disposition Summary: 05/16/23 15:11 Discharge Ordered Location: Home bs3 Problem: new bs3 Symptoms: have improved bs3 Condition: Stable bs3 Diagnosis - Poisoning by antiallergic and antiemetic drugs, accidental (unintentional), initial bs3 encounter Followup: bs3 - With: Private Physician - When: 2 - 3 days - Reason: Re-evaluation by your physician Forms: - Medication Reconciliation Form bs3 - Thank You Letter bs3 - Antibiotic Education bs3 - Prescription Opioid Use bs3 - [email or web address] bs3 Signatures: Dispatcher [employer] EDMS Myrna Acosta RN RN Melly Mazariegos RN RN 7 Buck Hopson MD MD bs3 Corrections: (The following items were deleted from the chart) 11:15 11:13 MAGNESIUM+[email or web address] ordered. EDMS EDMS
--- NOTE | 2023-05-16 15:12 | ER ---
Nurse's Notes [facility] Name: Arden Lux III Age: 62 yrs Sex: Male : 1960 Arrival Date: 05/16/2023 Time: 10:45 Bed 3 Private MD: Diagnosis: Poisoning by antiallergic and antiemetic drugs, accidental (unintentional), initial encounter Presentation: 05/16 10:49 Chief complaint: EMS states: Pt took approx 20-30 100mg diphenhydramine tablets this ph morning, denies SI, states that he "abuses over the counter medications" Also reports drinking 2 40oz beers this morning, states that he is a daily drinker, denies using street drugs. Coronavirus screen: Vaccine status: Patient reports being unvaccinated. Ebola Screen: No symptoms or risks identified at this time. Initial Sepsis Screen: Does the patient meet any 2 criteria? No. Patient's initial sepsis screen is negative. Does the patient have a suspected source of infection? No. Patient's initial sepsis screen is negative. Risk Assessment: Do you want to hurt yourself or someone else? Patient reports no desire to harm self or others. Onset of symptoms was May 16, 2023. 10:49 Method Of Arrival: EMS: [facility] 10:49 Acuity: LILIA 2 ph Triage Assessment: 10:53 General: Appears in no apparent distress. Behavior is cooperative, restless. Pain: ph Denies pain. Neuro: Level of Consciousness is awake, alert, obeys commands, Oriented to person, place, situation. Cardiovascular: Capillary refill < 3 seconds in bilateral fingers Patient's skin is warm and dry. Rhythm is sinus tachycardia. Respiratory: Airway is patent Trachea midline Respiratory effort is even, unlabored. GI: No signs and/or symptoms were reported involving the gastrointestinal system. Derm: Skin is pink, warm \\T\\ dry. Historical: - Allergies: 10:52 Sulfa (Sulfonamide Antibiotics); ph - Home Meds: 10:52 aspirin 81 mg Oral TbEC 1 tab once daily [Active]; esomeprazole magnesium 40 mg Oral ph cpDR 1 cap once daily [Active]; lisinopril 20 mg Oral tab 1 tab once daily [Active]; lorazepam 2 mg Oral tab 1 tab TID prn [Active]; simvastatin 40 mg Oral tab 1 tab nightly [Active]; - PMHx: 10:52 Anxiety; CVA; GERD; Hepatitis C; High Cholesterol; Hypertension; suicidal ideation; ph - Immunization history:: Adult Immunizations unknown. - Social history:: Smoking status: Patient reports the use of cigarette tobacco products, smokes one-half pack cigarettes per day. Screenin:54 [facility] ED Fall Risk Assessment (Adult) History of falling in the last 3 months, ph including since admission No falls in past 3 months (0 pts) Confusion or Disorientation No (0 pts) Intoxicated or Sedated Yes (3 pts) Impaired Gait Yes (1 pt) Mobility Assist Device Used No (0 pt) Altered Elimination No (0 pt) Score/Fall Risk Level 3 or more points = High Risk Oriented to surroundings, Maintained a safe environment, Hourly rounding (assess needs \\T\\ fall precautionary measures) done, Used ambulatory aids as needed (educated on \\T\\ assisted with). Abuse screen: Denies threats or abuse. Denies injuries from another. Nutritional screening: No deficits noted. Tuberculosis screening: No symptoms or risk factors identified. Assessment: 11:29 Reassessment: Patient appears in no apparent distress at this time. Patient and/or ph family updated on plan of care and expected duration. Pain level reassessed. SO at bedside, states that pt started drinking last night and that she found him in his chair this morning disoriented w/ slurred speech and became concerned, states, " I am worried because I think he did it to hurt himself. He has been depressed lately." Also states that pt has attempted to harm himself in the past. 12:35 Reassessment: Patient appears in no apparent distress at this time. Patient and/or ph family updated on plan of care and expected duration. Pain level reassessed. Pt resting w/ eyes closed, awakens easily to verbal stimuli, SO at bedside. 13:44 Reassessment: Patient appears in no apparent distress at this time. Patient and/or ph family updated on plan of care and expected duration. Pain level reassessed. Patient is alert, oriented x 3, equal unlabored respirations, skin warm/dry/pink. Pt ambulatory to restroom w/ steady gait, urine sample obtained. 14:36 Reassessment: Patient appears in no apparent distress at this time. Patient and/or ph family updated on plan of care and expected duration. Pain level reassessed. Patient is alert, oriented x 3, equal unlabored respirations, skin warm/dry/pink. ERP at bedside to speak w/ pt, asking if pt meant to harm himself when he took the medications this morning, pt again denies SI, will have [facility] contacted to evaluate pt. 15:10 Reassessment: Patient appears in no apparent distress at this time. Patient and/or ph family updated on plan of care and expected duration. Pain level reassessed. Patient is alert, oriented x 3, equal unlabored respirations, skin warm/dry/pink. Pt states that he is ready to go home, attempting to remove all monitoring equipment, states, " I need to go home." Continues to deny SI, states that is not willing to stay to be seen by Viet Fenotn, SILVINO at bedside. Overdose: 10:55 [place] Suicide Severity Screening: "In the past month, have you wished you were ph or wished you could go to sleep and not wake up?" Patient responds "no." "In the past month, have you actually had any thoughts of killing yourself?" Patient responds "no." "In your lifetime, have you ever done anything, started to do anything, or prepared to do anything to end your life?" Patient responds "no.". Vital Signs: 10:49 BP 151 / 83; Pulse 110; Resp 18; Temp 97.8; Pulse Ox 98% on R/A; Weight 72.57 kg; ph 12:36 BP 136 / 88; Pulse 83; Resp 18; Pulse Ox 99% on R/A; ph 13:45 BP 138 / 78; Pulse 82; Resp 18; Pulse Ox 98% on R/A; ss 15:00 BP 127 / 86; Pulse 81; Resp 18; Temp 97.9; Pulse Ox 99% on R/A; ph ED Course: 10:48 Patient arrived in ED. jl7 10:48 Buck Hposon MD is Attending Physician. bs3 10:52 Triage completed. ph 10:54 Arm band placed on Patient placed in an exam room, in the treatment room, on cardiac ph monitor, on pulse oximetry. 10:54 Patient has correct armband on for positive identification. Bed in low position. Call ph light in reach. Side rails up X2. Client placed on continuous cardiac and pulse oximetry monitoring. NIBP monitoring applied. Door closed. Noise minimized. 10:56 Myrna Acosta, RN is Primary Nurse. ph 10:56 Inserted saline lock: 20 gauge in right antecubital area, using aseptic technique. zm Blood collected. 10:56 Acetaminophen Sent. zm 10:56 Basic Metabolic Panel Sent. zm 10:56 CBC with Diff Sent. zm 10:56 ETOH Level Sent. zm 10:56 PT-INR Sent. zm 10:57 Hepatic Function Sent. zm 10:57 Ptt, Activated Sent. zm 10:57 Salicylate Sent. zm 14:40 contacted [facility] to have a screener evaluate pt. bd 15:15 No provider procedures requiring assistance completed. IV discontinued, intact, ph bleeding controlled, No redness/swelling at site. Pressure dressing applied. Administered Medications: 11:13 Drug: NS 0.9% IV 500 ml Volume: 500 ml; Route: IV; Rate: 1 bolus; Site: right jl7 antecubital; 12:00 Follow up: Response: No adverse reaction; IV Status: Completed infusion ph 12:35 Drug: Magnesium Sulfate IVPB 2 grams Route: IVPB; Infused Over: 2 hrs; Site: right antecubital; 14:35 Follow up: Response: No adverse reaction; IV Status: Completed infusion ph 12:35 Drug: NS 0.9% IV 1000 ml Route: IV; Rate: 1000 ml; Site: right antecubital; ph 14:00 Follow up: Response: No adverse reaction; IV Status: Completed infusion ph Medication: 10:55 VIS not applicable for this client. ph Outcome: 15:11 Discharge ordered by bs3 15:28 Discharged to home ambulatory, with significant other. ph 15:28 Condition: stable 15:28 Discharge instructions given to patient, significant other, Instructed on discharge instructions, follow up and referral plans. 15:29 Patient left the ED. ph Signatures: Jacquelyn Villareal Shelby, RN RN ss Myrna Acosta, SARAH SMITH ph Melly Mazariegos RN RN jl7 Pili Howard Brandon, MD MD bs3 Corrections: (The following items were deleted from the chart) 14:34 13:45 BP 138 / 7; Pulse 82bpm; Resp 18bpm; Pulse Ox 98% RA; ph ss
[2023-05-16 15:44] VITALS: O2SAT 99
[2023-05-16 15:58] VITALS: BP 127/86; TEMP 97.9
--- NOTE | 2023-05-17 20:40 | EKG ---
Test Date: 2023-05-16 Test Time: 11:05:36 [place]: STEVEN MEASUREMENT RESULTS: Intervals: Rate: 100 LA: 158 QRSD: 86 QT: 386 QTc: 497 [place]: P: 65 LA: 158 QRS: 7 T: 61 INTERPRETIVE STATEMENTS: Normal sinus rhythm Prolonged QT Abnormal ECG Compared to ECG 04/27/2023 14:51:40 Prolonged QT interval now present Electronically Signed On 05-17-23 20:33:19 CDT by Grayson Cardona
== END 2023-05-16 15:29 | disposition home or self-care (01) ==
LOC: ER 10:45
DX: T45.0X1A Poisoning by antiallergic and antiemetic drugs, accidental (unintentional), initial encounter (principal); I10 Essential (primary) hypertension; F41.9 Anxiety disorder, unspecified; F17.210 Nicotine dependence, cigarettes, uncomplicated; Z86.73 Personal history of transient ischemic attack (TIA), and cerebral infarction without residual deficits; Z88.2 Allergy status to sulfonamides; Z79.82 Long term (current) use of aspirin
CPT/HCPCS: 85025; 80048; 36415; 83735; 85610; 80076; 85730; 80307; 80143; 80179; 82077; J3475; J7040; J7030; 93005

== ENCOUNTER 2023-05-28 11:34 | Emergency (ER) | payer MEDICARE ==
--- OUTSIDE RECORDS SUMMARY | 2023-05-28 11:37 | XMS REPORT | Continuity of Care Document ---
:1960 Author Organization [facility] t Address [address] [place] [address] Care Team Providers Name Role Phone Rafael-Fabiáno_A_AH Attending Clinician Unavailable Rafael-Fabiáno_A_AH Admitting Clinician Unavailable Payers Payer Name Policy Type Policy Number Effective Date Expiration Date S harpreet [facility] [id number] 2020 (MEDICARE 00:00:00 REPLACEMENT HMO) [employer] [place] - [id number] 2019 [facility]IC[facility] 00:00:00 REPLACEMENT/[employer] GE - HMO) Problems This patient has no known problems. Allergies, Adverse Reactions, Alerts This patient has no known allergies or adverse reactions. Medications This patient has no known medications. Procedures This patient has no known procedures. Encounters Start End Encounter Admission Attending Care Care Encounter Source Date/Time Date/Time Type Type Clinicians Facility Department ID 2022-06-04 2022-06-04 [facility] [id number] [facility] 03:40:00 03:40:00 0715 [facility] 2022-06-04 2022-06-[address] [facility] [id number] [facility] 00:00:00 00:00:00 0506 [facility] 2021-12-14 2021-12-14 Outpatient [facility] [id number] [facility] 08:00:00 08:00:00 0124 [facility] 2021-12-04 2021-12-[address] [facility] [id number] [facility] 09:00:00 09:00:00 0114 [facility] 2021-03-18 2021-03-18 Out[facility]abi[facility]no [facility] [id number] [facility] 04:31:00 04:31:00 _A_AH [id number] Family Practic e 2020-01-17 2020-01-17 Outpatient Rafael-Mbayo [facility] [id number] [facility] 04:19:00 04:19:00 _A_AH [id number] Family Practic e 2020-01-17 2020-01-17 Outpatient Rafael-Mbayo [facility] VFP [id number] [facility] 04:19:00 04:19:00 _A_AH [id number] Family Practic e 2020-01-17 2020-01-17 Outpatient Rafael-Mbayo VFP VFP [id number] [facility] 04:19:00 04:19:00 _A_AH [id number] Family Practic e 2020-01-17 2020-01-17 Outpatient Rafael-Mbayo VFP VFP [id number] [facility] 04:19:00 04:19:00 _A_AH [id number] Family Practic e 2020-01-17 2020-01-17 Outpatient Rafael-Mbayo VFP VFP [id number] [facility] 04:19:00 04:19:00 _A_AH [id number] Family Practic e Results This patient has no known results.
[2023-05-28] MEDS ORDERED: NA CHLORIDE 0.9% 1,000 ML ONE (12:18)
[2023-05-28] MEDS ORDERED: ASPIRIN 81 MG CHEWABLE TABLET ONE (12:18)
[2023-05-28 12:30] LABS: Protime INR 1.01
--- NOTE | 2023-05-28 12:30 | RAD REPORT ---
EXAM DESCRIPTION: Addie Single View05/28/2023 12:07 pm CLINICAL HISTORY: Chest pain COMPARISON: April 2023 FINDINGS: The lungs appear clear of acute infiltrate. The heart is normal size IMPRESSION: No acute abnormalities displayed
[2023-05-28 12:31] LABS: Absolute Lymphocytes (CBC) 3.7 K/uL (0.7-4.9); Hematocrit 30.6 % (39.6-49.0); Lymphocytes % 36.8 % (15.3-44.8); MPV 7.8 fL (7.6-11.3); RBC Red Blood Cell Count 3.19 M/uL (4.33-5.43)
[2023-05-28 12:43] LABS: ALT/SGPT 51 U/L (16-61); AST/SGOT 36 U/L (15-37); Alkaline Phosphatase 61 U/L (45-117); BUN Blood Urea Nitrogen 23 mg/dL (7-18); Bicarbonate 21 mEq/L (21-32); Bilirubin Total 0.3 mg/dL (0.2-1.0); Creatine Phosphokinase 132 U/L (39-308); Glomerular Filtration Rate 61 ml/min (=/>90); Glucose Level 125 mg/dL (74-106); Lipase 80 U/L (13-75); Magnesium 2.3 mg/dL (1.6-2.4); NT PRO-BNP 36 pg/mL (<125); Potassium 3.4 mEq/L (3.5-5.1); Protein, Total 7.5 g/dL (6.4-8.2); Sodium Level 140 mEq/L (136-145); Troponin High Sensitivity 5.6 pg/mL (<58.9)
[2023-05-28 12:44] LABS: Bilirubin Direct < 0.1 mg/dL (0-0.2); Bilirubin Indirect, Calculated ND mg/dL (0.2-0.8)
[2023-05-28 12:44] LABS: Specific Gravity 1.021 (1.005-1.030); Urine Bacteria <20 /HPF (<20); Urine Bilirubin NEGATIVE (Negative); Urine Blood Negative (Negative); Urine Clarity Turbid (Clear); Urine Color Yellow (Yellow); Urine Glucose NEGATIVE (Negative); Urine Mucus Slight /HPF (None Seen); Urine Protein 1+ (Negative); Urine RBC <5 /HPF (None Seen); Urine Urobilinogen Normal (Normal); Urine pH 5.5 (5.0-7.0)
[2023-05-28] MEDS ORDERED: FOLIC ACID 1 MG, THIAMINE HCL 100 MG, MULTIVITAMINS INJ 10 ML in NA CHLORIDE 0.9% 1,000 ML IV ONE (13:00)
--- NOTE | 2023-05-28 14:51 | ER ---
Nurse's Notes [facility] Name: Arden Lux III Age: 62 yrs Sex: Male : 1960 Arrival Date: 05/28/2023 Time: 11:34 Bed 20 Private MD: Diagnosis: Chest pain, unspecified;Alcohol abuse with intoxication Presentation: 05/28 11:30 Chief complaint: EMS states: patient complains of chest pain started approximately 30 db min ago while sitting outside. pt reports drinking 2 malt liquors and wine today. Coronavirus screen: Client denies travel out of the [place] in the last 14 days. At this time, the client does not indicate any symptoms associated with coronavirus-19. Ebola Screen: Patient negative for fever greater than or equal to 101.5 degrees Fahrenheit, and additional compatible Ebola Virus Disease symptoms Patient denies exposure to infectious person. Patient denies travel to an Ebola-affected area in the 21 days before illness onset. No symptoms or risks identified at this time. Initial Sepsis Screen: Does the patient meet any 2 criteria? No. Patient's initial sepsis screen is negative. Does the patient have a suspected source of infection? No. Patient's initial sepsis screen is negative. Risk Assessment: Do you want to hurt yourself or someone else? Patient reports no desire to harm self or others. Onset of symptoms was May 28, 2023. 11:30 Method Of Arrival: EMS: [facility] db 11:30 Acuity: LILIA 2 db Triage Assessment: 11:55 General: Appears in no apparent distress. comfortable, Behavior is calm, cooperative. db Pain: Complains of pain in chest. Neuro: Level of Consciousness is awake, alert, obeys commands, Oriented to person, place, time, situation. Historical: - Allergies: 11:54 Sulfa (Sulfonamide Antibiotics); db - Home Meds: 11:54 simvastatin 40 mg Oral tab 1 tab nightly [Active]; lorazepam 2 mg Oral tab 1 tab TID db prn [Active]; esomeprazole magnesium 40 mg Oral cpDR 1 cap once daily [Active]; lisinopril 20 mg Oral tab 1 tab once daily [Active]; aspirin 81 mg Oral TbEC 1 tab once daily [Active]; - PMHx: 11:54 Anxiety; CVA; GERD; Hepatitis C; High Cholesterol; Hypertension; suicidal ideation; db - Immunization history:: Adult Immunizations unknown. - Social history:: Smoking status: Patient reports the use of cigarette tobacco products, smokes one-half pack cigarettes per day. Screenin:16 [facility] ED Fall Risk Assessment (Adult) History of falling in the last 3 months, db including since admission Yes- single mechanical fall (1 pt) Confusion or Disorientation No (0 pts) Intoxicated or Sedated Yes (3 pts) Impaired Gait No (0 pts) Mobility Assist Device Used No (0 pt) Altered Elimination No (0 pt) Score/Fall Risk Level 3 or more points = High Risk Oriented to surroundings, Maintained a safe environment. Abuse screen: Denies threats or abuse. Denies injuries from another. Nutritional screening: No deficits noted. Tuberculosis screening: No symptoms or risk factors identified. Assessment: 12:15 Reassessment: Patient appears in no apparent distress at this time. Patient and/or db family updated on plan of care and expected duration. Pain level reassessed. Patient is alert, oriented x 3, equal unlabored respirations, skin warm/dry/pink. patient standing using urinal. General: Appears in no apparent distress. comfortable, Behavior is calm, cooperative. Pain: Complains of pain in back and chest. Neuro: Level of Consciousness is awake, alert, obeys commands, Oriented to person, place, time, situation. 12:44 Reassessment: Patient appears in no apparent distress at this time. patient db updated. 13:30 Reassessment: Patient appears in no apparent distress at this time. Patient and/or db family updated on plan of care and expected duration. Pain level reassessed. Patient is alert, oriented x 3, equal unlabored respirations, skin warm/dry/pink. General: Appears in no apparent distress. comfortable, Behavior is calm, cooperative. 14:57 Reassessment: Patient appears in no apparent distress at this time. Patient and/or db family updated on plan of care and expected duration. Pain level reassessed. Patient is alert, oriented x 3, equal unlabored respirations, skin warm/dry/pink. General: Appears in no apparent distress. comfortable, Behavior is calm, cooperative. Neuro: Level of Consciousness is awake, alert, obeys commands, Oriented to person, place, time, situation. Respiratory: Airway is patent Respiratory effort is even, unlabored, Respiratory pattern is regular, symmetrical. Vital Signs: 11:30 BP 126 / 90; Pulse 104; Resp 18 S; Pulse Ox 98% on R/A; Weight 70.31 kg; Height 5 ft. 6 db in. ; 12:37 BP 137 / 79; Pulse 89; Resp 18; Pulse Ox 97% on R/A; db 13:04 BP 137 / 79; Pulse 87; Resp 17 S; Pulse Ox 99% on R/A; kc6 14:00 BP 155 / 92; Pulse 97; Resp 18; Pulse Ox 98% on R/A; db 14:30 BP 131 / 82; Pulse 88; Resp 18; Pulse Ox 98% on R/A; db 11:30 Body Mass Index 25.02 (70.31 kg, 167.64 cm) db Vitals: 12:37 Cardiac Rhythm Assessment Regular. db ED Course: 11:35 Patient arrived in ED. sb4 11:35 Josefina Vick PA-C is PHCP. sb4 11:35 Dale Godoy MD is Attending Physician. sb4 11:44 Shanthi Shah, RN is Primary Nurse. db 11:48 Triage completed. db 11:55 Arm band placed on Patient placed in an exam room. db 11:57 Patient has correct armband on for positive identification. Bed in low position. Call mm9 light in reach. Side rails up X2. Warm blanket given. Pillow given. Client placed on continuous cardiac and pulse oximetry monitoring. NIBP monitoring applied. hospital monitor on. Pulse ox on. NIBP on. 11:57 EKG done, by ED staff, reviewed by Dale Godoy MD. mm9 12:05 Inserted saline lock: 20 gauge in right antecubital area, using aseptic technique. db Blood collected. 12:09 XRAY Chest (1 view) In Process Unspecified. EDMS 15:04 No provider procedures requiring assistance completed. IV discontinued, intact, db bleeding controlled, No redness/swelling at site. Administered Medications: 12:00 Drug: Aspirin PO Chewable Tablet 324 mg Route: PO; db 14:57 Follow up: Response: No adverse reaction db 12:13 Drug: NS 0.9% IV 1000 ml Route: IV; Rate: 1 bolus; Site: right antecubital; db 14:00 Follow up: Response: No adverse reaction; IV Status: Completed infusion; IV Intake: db 1000ml 13:17 Drug: Banana Bag - (NS 0.9% IV 1000 ml, foLIC Acid IVPB 1 mg, Thiamine IV 100 mg, db Multivitamin IV 1 amp) Route: IV; Rate: calculated rate; Site: right antecubital; 14:57 Follow up: Response: No adverse reaction; IV Status: Completed infusion; IV Intake: db 1000ml Medication: 15:04 VIS not applicable for this client. db Intake: 14:00 IV: 1000ml; Total: 1000ml. db 14:57 IV: 1000ml; Total: 2000ml. db Output: 12:33 Urine: 100ml (Voided); Total: 100ml. db Outcome: 14:50 Discharge ordered by MD. winters 15:03 Discharged to home ambulatory. db 15:03 Condition: stable 15:03 Discharge instructions given to patient, Instructed on discharge instructions, follow up and referral plans. 15:04 Patient left the ED. db Signatures: Dispatcher [employer] EDMahi Thomas RN RN kc6 Shanthi Shah RN RN Josefina Pierre, PA-C PA-C sb4 Makayla Howard mm9 Corrections: (The following items were deleted from the chart) 12:44 12:37 Pulse 104bpm; Resp 18bpm; Pulse Ox 98% RA; db db
--- NOTE | 2023-05-28 14:51 | EDPHYS ---
Physician Documentation [facility] Name: Arden Lux III Age: 62 yrs Sex: Male : 1960 Arrival Date: 05/28/2023 Time: 11:34 Bed 20 Private MD: ED Physician Dale Gdooy HPI: 05/28 12:18 This 62 yrs old Male presents to ER via EMS with complaints of chest pain. sb4 12:18 62 year old male with past medical history of hypertension and hyperlipidemia presents sb4 via EMS with chest pain. Per EMS, they were toned out because patient was walking outside and got tired and started experiencing "external" chest pain. Patient is a poor historian, +etoh. Reports compliance with home medications of lisinopril, simvastatin, baby aspirin. Has a positive cardiac history. Historical: - Allergies: 11:54 Sulfa (Sulfonamide Antibiotics); db - Home Meds: 11:54 simvastatin 40 mg Oral tab 1 tab nightly [Active]; lorazepam 2 mg Oral tab 1 tab TID db prn [Active]; esomeprazole magnesium 40 mg Oral cpDR 1 cap once daily [Active]; lisinopril 20 mg Oral tab 1 tab once daily [Active]; aspirin 81 mg Oral TbEC 1 tab once daily [Active]; - PMHx: 11:54 Anxiety; CVA; GERD; Hepatitis C; High Cholesterol; Hypertension; suicidal ideation; db - Immunization history:: Adult Immunizations unknown. - Social history:: Smoking status: Patient reports the use of cigarette tobacco products, smokes one-half pack cigarettes per day. ROS: 12:18 Constitutional: Negative for fever, chills, and weight loss, Eyes: Negative for injury, sb4 pain, redness, and discharge, ENT: Negative for injury, pain, and discharge, Respiratory: Negative for shortness of breath, cough, wheezing, and pleuritic chest pain, Abdomen/GI: Negative for abdominal pain, nausea, vomiting, diarrhea, and constipation, Back: Negative for injury and pain, Neuro: Negative for headache, weakness, numbness, tingling, and seizure, Psych: Negative for depression, anxiety, suicide ideation, homicidal ideation, and hallucinations. 12:18 Cardiovascular: Positive for chest pain, Negative for edema, orthopnea, palpitations. 12:18 Skin: Positive for skin tear elbow. Exam: 12:18 Constitutional: This is a well developed, well nourished patient who is awake, alert, sb4 and in no acute distress. Head/Face: Normocephalic, atraumatic. Eyes: Extra-ocular motions intact. Periorbital areas with no swelling, redness, or edema. ENT: Mucous membranes moist. Cardiovascular: Regular rate and rhythm with a normal S1 and S2. Respiratory: Lungs have equal breath sounds bilaterally, clear to auscultation and percussion. No rales, rhonchi or wheezes noted. No increased work of breathing, no retractions or nasal flaring. Abdomen/GI: Soft, non-tender, no distension. MS/ Extremity: Pulses equal, no cyanosis. Neurovascular intact. Full, normal range of motion. Neuro: Awake and alert, GCS 15, oriented to person, place, time, and situation. Cranial nerves II-XII grossly intact. Motor strength 5/5 in all extremities. Sensory grossly intact. Cerebellar exam normal. Normal gait. 12:18 Psych: Behavior/mood is intoxicated. Oriented to person, place, time, Patient has no thoughts/intents to harm self or others. Judgement / Insight is impaired. Delusions/hallucinations are not present. Vital Signs: 11:30 BP 126 / 90; Pulse 104; Resp 18 S; Pulse Ox 98% on R/A; Weight 70.31 kg; Height 5 ft. 6 db in. ; 12:37 BP 137 / 79; Pulse 89; Resp 18; Pulse Ox 97% on R/A; db 13:04 BP 137 / 79; Pulse 87; Resp 17 S; Pulse Ox 99% on R/A; kc6 14:00 BP 155 / 92; Pulse 97; Resp 18; Pulse Ox 98% on R/A; db 14:30 BP 131 / 82; Pulse 88; Resp 18; Pulse Ox 98% on R/A; db 11:30 Body Mass Index 25.02 (70.31 kg, 167.64 cm) db MDM: 11:35 Patient medically screened. sb4 14:49 Differential Diagnosis [place], dehydration, alcohol intoxication, drug abuse, sb4 rhabdomyolsis. Data reviewed: vital signs, nurses notes, EMS record, lab test result(s), EKG, radiologic studies, and as a result, I will discharge patient. Consideration of Admission/Observation Escalation of care including admission/observation considered. 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 Special discussion: Based on the patient's history, exam, and Dx evaluation, there is no indication for emergent intervention or inpatient Tx. It is understood by the patient/guardian that if the Sx's persist or worsen they need to return immediately for re-evaluation. I discussed with the patient/guardian in detail that at this point there is no indication for admission to the hospital. It is understood, however, that if the symptoms persist or worsen the patient needs to return immediately for re-evaluation. 05/28 11:36 Order name: Basic Metabolic Panel; Complete Time: 12:47 sb4 05/28 11:36 Order name: CBC with Diff; Complete Time: 12:36 sb4 05/28 11:36 Order name: LFT's; Complete Time: 12:47 sb4 05/28 11:36 Order name: Magnesium; Complete Time: 12:47 sb4 05/28 11:36 Order name: NT PRO-BNP; Complete Time: 12:47 sb4 05/28 11:36 Order name: PT-INR; Complete Time: 12:31 sb4 05/28 11:36 Order name: Troponin HS; Complete Time: 12:47 sb4 05/28 11:36 Order name: ETOH Level; Complete Time: 12:47 sb4 05/28 11:36 Order name: CK; Complete Time: 12:47 sb4 05/28 11:36 Order name: Lipase; Complete Time: 12:47 sb4 05/28 12:31 Order name: UAM; Complete Time: 12:47 sb4 05/28 12:59 Order name: Troponin High Sensitivity: to be drawn at 14:15 please; Complete Time: 16:36sb4 05/28 11:36 Order name: XRAY Chest (1 view); Complete Time: 12:31 sb4 05/28 11:36 Order name: EKG; Complete Time: 11:36 sb4 05/28 11:36 Order name: Cardiac monitoring; Complete Time: 12:15 sb4 05/28 11:36 Order name: EKG - Nurse/Tech; Complete Time: 11:53 sb4 05/28 11:36 Order name: IV Saline Lock; Complete Time: 12:15 sb4 05/28 11:36 Order name: Labs collected and sent; Complete Time: 11:57 sb4 05/28 11:36 Order name: O2 Per Protocol; Complete Time: 57 sb4 05/28 11:36 Order name: O2 Sat Monitoring; Complete Time: :57 sb4 EC:18 Rate is 101 beats/min. Rhythm is regular, Sinus tachycardia. QRS [place] is Normal. [place] sb4 interval is normal at 156 msec. QRS interval is normal at 82 msec. QT interval is normal at 350 msec. T waves are Normal. Clinical impression: Normal ECG. Interpreted by me. Reviewed by me. Administered Medications: 12:00 Drug: Aspirin PO Chewable Tablet 324 mg Route: PO; db 14:57 Follow up: Response: No adverse reaction db 12:13 Drug: NS 0.9% IV 1000 ml Route: IV; Rate: 1 bolus; Site: right antecubital; db 14:00 Follow up: Response: No adverse reaction; IV Status: Completed infusion; IV Intake: db 1000ml 13:17 Drug: Banana Bag - (NS 0.9% IV 1000 ml, foLIC Acid IVPB 1 mg, Thiamine IV 100 mg, db Multivitamin IV 1 amp) Route: IV; Rate: calculated rate; Site: right antecubital; 14:57 Follow up: Response: No adverse reaction; IV Status: Completed infusion; IV Intake: db 1000ml Disposition Summary: 05/28/23 14:50 Discharge Ordered Location: Home sb4 Condition: Stable sb4 Diagnosis - Chest pain, unspecified sb4 - Alcohol abuse with intoxication sb4 Followup: sb4 - With: Private Physician - When: - Reason: Recheck today's complaints, Re-evaluation by your physician Discharge Instructions: - Discharge Summary Sheet sb4 - Nonspecific Chest Pain, Adult, [id number] sb4 - Alcohol Abuse and Nutrition sb4 Forms: - Medication Reconciliation Form sb4 - Thank You Letter sb4 - Antibiotic Education sb4 - Prescription Opioid Use sb4 - [email or web address] sb4 Signatures: Dispatcher [employer] Shanthi Mendez, RN Josefina Oakley PA-C PA-C sb4
[2023-05-28 15:13] VITALS: O2SAT 98
[2023-05-28 15:15] VITALS: BP 131/82
--- NOTE | 2023-05-30 17:17 | EKG ---
Test Date: 2023-05-28 Test Time: 11:49:03 Produce Manager: JOSE L MEASUREMENT RESULTS: Intervals: Rate: 104 SC: 162 QRSD: 72 QT: 336 QTc: 441 [place]: P: 70 SC: 162 QRS: 16 T: 35 INTERPRETIVE STATEMENTS: Poor data quality, interpretation may be adversely affected Sinus tachycardia with occasional premature ventricular complexes and fusion complexes Nonspecific T wave abnormality Abnormal ECG Compared to ECG 05/16/2023 11:05:36 Fusion complex(es) now present Ventricular premature complex(es) now present T-wave abnormality now present Sinus rhythm no longer present Prolonged QT interval no longer present Electronically Signed On 05-30-23 17:13:40 CDT by Kale Sigala
--- NOTE | 2023-05-30 17:17 | EKG ---
Test Date: 2023-05-28 Test Time: 11:51:27 Correctional Substance Abuse Counselor: JOSE L MEASUREMENT RESULTS: Intervals: Rate: 99 VT: 162 QRSD: 88 QT: 348 QTc: 446 [place]: P: 63 VT: 162 QRS: 13 T: 43 INTERPRETIVE STATEMENTS: Normal sinus rhythm Normal ECG Compared to ECG 05/28/2023 11:49:03 Sinus tachycardia no longer present Fusion complex(es) no longer present Ventricular premature complex(es) no longer present T-wave abnormality no longer present Electronically Signed On 05-30-23 17:13:35 CDT by Kale Sigala
--- NOTE | 2023-05-30 17:17 | EKG ---
Test Date: 2023-05-28 Test Time: 11:53:46 Juke Box Servicer: JOSE L MEASUREMENT RESULTS: Intervals: Rate: 101 IL: 156 QRSD: 82 QT: 350 QTc: 453 [place]: P: 66 IL: 156 QRS: 27 T: 81 INTERPRETIVE STATEMENTS: Sinus tachycardia Otherwise normal ECG Compared to ECG 05/28/2023 11:51:27 Sinus rhythm no longer present Electronically Signed On 05-30-23 17:13:33 CDT by Kale Sigala
== END 2023-05-28 15:04 | disposition home or self-care (01) ==
LOC: ER 11:34
DX: R07.9 Chest pain, unspecified (principal); F10.129 Alcohol abuse with intoxication, unspecified; I10 Essential (primary) hypertension; E78.5 Hyperlipidemia, unspecified; B19.20 Unspecified viral hepatitis C without hepatic coma; K21.9 Gastro-esophageal reflux disease without esophagitis; F41.9 Anxiety disorder, unspecified; F17.210 Nicotine dependence, cigarettes, uncomplicated; Z88.2 Allergy status to sulfonamides; Z86.73 Personal history of transient ischemic attack (TIA), and cerebral infarction without residual deficits
CPT/HCPCS: 96365; 96361; 93005 ×3; 85025; 81001; 80048; 36415; 83735; 82550; 85610; 80076; 84484 ×2; 83690; 83880; 71045; 99285; 96366; 82077; J3411; J7030 ×2

== ENCOUNTER 2023-12-23 01:34 | Inpatient (IN) | payer MEDICARE ==
--- OUTSIDE RECORDS SUMMARY | 2023-12-23 01:37 | XMS REPORT | Continuity of Care Document ---
Author Name Unknown Address [address] [id number] [facility] Address [address] [place] [address] Care Team Providers Care Manager Sourcing Name Role Phone Dania Loaiza Attending Clinician Ogbechie_L Attending Clinician Unavailable Rafael-Mbayo_A_AH Attending Clinician Unavailable Ogbechie_L Admitting Clinician Unavailable Rafael-Mbayo_A_AH Admitting Clinician Unavailable Payers Payer Name Policy Type Policy Number Effective Date Expirati on Date Source [employer] (MEDICARE REPLACEMENT HMO) [id number] 00:00:00 [facility]/[employer] - HMO) [id number] 2019 00:00:00 Encounters Start Date/Time End Date/Time Encounter Type Admission Type Attending Clinicians Care Facility Care Department Encounter ID Source 2023-11-01 21:45:00 2023-11-01 22:05:00 [employer] Panel-dire cted [place] [facility] Dania Josse [id number] [facility] 2023-08-02 17:10:00 2023-08-02 17:30:00 Care [facility] - [facility] Dania Josse [id number] [facility] 2023-06-15 16:30:00 2023-06-15 17:30:00 DIANE Loaiza [id number] [facility] 2023-06-01 00:00:00 2023-06-01 00:00:00 Outpatient Ogbechie_L DMG DMG [id number] [facility] 2023-06-01 00:00:00 2023-06-01 00:00:00 Outpatient Ogbechie_L DMG DMG [id number] [facility] 2022-06-04 03:40:00 2022-06-04 03:40:00 Outpatient DMG DMG [id number] [facility] 2022-06-04 00:00:00 2022-06-04 00:00:00 Outpatient DMG DMG [id number] [facility] 2021-12-14 08:00:00 2021-12-14 08:00:00 Outpatient DMG DMG [id number] [facility] 2021-12-04 09:00:00 2021-12-04 09:00:00 Outpatient DMG DMG [id number] [facility] 2021-03-18 04:31:00 2021-03-18 04:31:00 Outpatient Rafael-Mbayo _A_AH VFP VFP [id number] [facility] 2020-01-17 04:19:00 2020-01-17 04:19:00 Outpatient Rafael-Mbayo _A_AH VFP VFP [id number] [facility] 2020-01-17 04:19:00 2020-01-17 04:19:00 Outpatient Rafael-Mbayo _A_AH VFP VFP [id number] [facility] 2020-01-17 04:19:00 2020-01-17 04:19:00 Outpatient Rafael-Mbayo _A_AH VFP VFP [id number] [facility] 2020-01-17 04:19:00 2020-01-17 04:19:00 Outpatient Rafael-Mbayo _A_AH VFP VFP [id number] [facility] 2020-01-17 04:19:00 2020-01-17 04:19:00 Outpatient Rafael-Mbayo _A_AH VFP VFP [id number] [facility]
[2023-12-23] MEDS ORDERED: FAMOTIDINE 20 MG/2 ML VIAL IV ONE (01:55)
[2023-12-23] MEDS ORDERED: MAGNES/ALUMIN/SIMET 30ML UCUP ONE (01:55)
[2023-12-23] MEDS ORDERED: NA CHLORIDE 0.9% 1,000 ML ONE ×2 (01:55→03:00)
[2023-12-23 01:59] LABS: Hematocrit 28.8 % (39.6-49.0); Lymphocytes % 23.5 % (15.3-44.8); MCV 100.5 fL (80-100); MPV 7.8 fL (7.6-11.3); Platelets 223 thou/uL (152-406); RBC Red Blood Cell Count 2.86 M/uL (4.33-5.43)
[2023-12-23 02:31] LABS: Albumin 4.2 g/dL (3.4-5.0); Bilirubin Total 1.1 mg/dL (0.2-1.0); Protein, Total 7.8 g/dL (6.4-8.2); Troponin High Sensitivity 7.5 pg/mL (<58.9)
--- NOTE | 2023-12-23 03:46 | ER ---
Nurse's Notes [facility] Name: Arden Lux III Age: 63 yrs Sex: Male : 1960 Arrival Date: 12/23/2023 Time: 01:34 Bed 15 Private MD: Diagnosis: Upper abdominal pain, unspecified;Acute kidney injury;Rhabdomyolysis Presentation: 12/23 01:35 Chief complaint: EMS states: missing X2 days. found in park by family. family called 3 EMS. pt verbalizes he has been using cocaine and binge drinking and reports ABD pain. Coronavirus screen: At this time, unable to obtain information related to travel outside the [place] Ebola Screen: No symptoms or risks identified at this time. Initial Sepsis Screen: Does the patient meet any 2 criteria? No. Patient's initial sepsis screen is negative. Does the patient have a suspected source of infection? No. Patient's initial sepsis screen is negative. Risk Assessment: Do you want to hurt yourself or someone else? Patient reports no desire to harm self or others. Onset of symptoms is unknown. 01:35 Method Of Arrival: EMS: [facility] 3 01:35 Acuity: LILIA 3 lg3 Triage Assessment: 01:40 General: Appears unkempt, Behavior is anxious, fussy, restless, uncooperative. Pain: lg3 Complains of pain in abdomen. EENT: No deficits noted. No signs and/or symptoms were reported regarding the EENT system. Neuro: Burt Agitation-Sedation Scale (RASS): +1 Restless Level of Consciousness is awake, stuporous, Oriented to person. Cardiovascular: No deficits noted. Capillary refill < 3 seconds Clubbing of nail beds is absent JVD is absent Patient's skin is warm and dry. Respiratory: No deficits noted. Airway is patent Respiratory effort is even, unlabored, Respiratory pattern is regular, symmetrical. GI: Abdomen is round non-distended, Reports lower abdominal pain, upper abdominal pain, constipation, diarrhea. : No signs and/or symptoms were reported regarding the genitourinary system. Derm: Skin is intact, Skin is dry, Skin is normal, Skin temperature is warm. Musculoskeletal: No deficits noted. No signs and/or symptoms reported regarding the musculoskeletal system. Circulation, motion, and sensation intact. Range of motion: intact in all extremities. Historical: - Allergies: 01:40 Sulfa (Sulfonamide Antibiotics); lg3 - PMHx: 01:40 Anxiety; CVA; GERD; Hepatitis C; High Cholesterol; Hypertension; suicidal ideation; lg3 - PSHx: 01:40 Unable to Obtain; lg3 - Immunization history:: Adult Immunizations unknown. - Social history:: Smoking status: unknown Patient uses alcohol, on a daily basis. patient/guardian reports chronic longstanding heavy alcohol consumption. patient/guardian reports recent binge of alcohol consumption. street drugs, cocaine. - Family history:: not pertinent. Screenin:35 Abuse screen: Denies threats or abuse. Nutritional screening: No deficits noted. jj7 Tuberculosis screening: No symptoms or risk factors identified. Assessment: 01:35 Reassessment: SEE TRIAGE ASSESSMENT. jj7 Vital Signs: 01:35 BP 101 / 60; Pulse 91; Resp 15 S; Temp 97.9(O); Pulse Ox 99% on R/A; Weight 86.18 kg lg3 (R); Height 5 ft. 5 in. (R); 02:55 BP 87 / 52; Pulse 99; Resp 16; Pulse Ox 97% ; jj7 04:00 BP 94 / 60; Pulse 100; Resp 16; Temp 97.9; Pulse Ox 96% ; jj7 04:32 BP 101 / 68; Pulse 100; Resp 17; Pulse Ox 95% ; jj7 01:35 Body Mass Index 31.62 (86.18 kg, 165.1 cm) lg3 ED Course: 01:35 Patient arrived in ED. lg3 01:36 Tong Matthews MD is Attending Physician. rt 01:40 Radiology exam delayed due to lab results not completed at this time. (BUN/Creatinine) eh4 IV insertion attempt and/or patient not having appropriate IV at this time. 01:40 Triage completed. lg3 01:40 Arm band placed on right wrist. lg3 01:40 Patient has correct armband on for positive identification. Bed in low position. Call jj7 light in reach. Side rails up X2. Warm blanket given. 01:51 Inserted saline lock: 20 gauge in right antecubital area, using aseptic technique. jj7 Blood collected. 01:59 Zak Plummer RN is Primary Nurse. jj7 01:59 Troponin High Sensitivity Sent. jj7 01:59 CPK Sent. jj7 02:00 CBC with Diff Sent. jj7 02:00 CMP Sent. jj7 02:00 Lipase Sent. jj7 03:03 CT Head C Spine In Process Unspecified. EDMS 03:03 Abdomen In Process Unspecified. EDMS 03:45 Benjamin Mcrae MD is Hospitalizing Provider. rt 04:30 No provider procedures requiring assistance completed. Patient admitted, IV remains in jj7 place. Administered Medications: 02:00 Drug: NS 0.9% IV 1000 ml IV at 1 bolus Per protocol; 1000 mL bolus Route: IV; Rate: 1 jj7 bolus; Site: right antecubital; 03:00 Follow up: IV Status: Completed infusion jj7 02:00 Drug: Famotidine IVP 20 mg IVP once; dilute with 10 mL 0.9% NaCl; give over 2 minutes jj7 Route: IVP; Site: right antecubital; 02:18 Follow up: Response: Marked relief of symptoms jj7 02:00 Drug: Alum-Mag Hydroxide-Simeth PO Suspension (200 mg-200 mg-20 mg/5 mL) 30 ml PO once jj7 Route: PO; 02:30 Follow up: Response: No adverse reaction jj7 03:05 Drug: NS 0.9% IV 1000 ml IV at 1 bolus Per protocol; 1000 mL bolus Route: IV; Rate: 1 jj7 bolus; Site: right antecubital; 04:41 Follow up: IV Status: Completed infusion j7 Medication: 04:30 VIS not applicable for this client. jj7 Outcome: 03:45 Decision to Hospitalize by Provider. rt 04:30 Admitted to Med/surg accompanied by tech, via wheelchair, room 229, Report called to coby MILAN RN 04:30 Condition: improved 04:49 Patient left the ED. j7 Signatures: Dispatcher [employer] Anne Flores, RN RN 3 Raul Acosta 4 Zak Plummer RN RN jj7 Tong Matthews MD MD rt
--- NOTE | 2023-12-23 03:46 | EDPHYS ---
Physician Documentation [facility] Name: Arden Lux III Age: 63 yrs Sex: Male : 1960 Arrival Date: 12/23/2023 Time: 01:34 Bed 15 Private MD: ED Physician Tong Matthews HPI: 12/23 02:23 This 63 yrs old Male presents to ER via EMS with complaints of Abdominal pain. rt 02:23 Unable to obtain HPI due to patient is being uncooperative. Patient presents to the ED rt with reported abdominal pain. The patient has been missing for 2 days, does admit to cocaine and alcohol binge during that time. Reports pain to the upper abdomen. No reported nausea, vomiting. Denies other acute complaints, symptoms are moderate severity, no other aggravating or elevating factors.. Historical: - Allergies: 01:40 Sulfa (Sulfonamide Antibiotics); lg3 - PMHx: 01:40 Anxiety; CVA; GERD; Hepatitis C; High Cholesterol; Hypertension; suicidal ideation; lg3 - PSHx: 01:40 Unable to Obtain; lg3 - Immunization history:: Adult Immunizations unknown. - Social history:: Smoking status: unknown Patient uses alcohol, on a daily basis. patient/guardian reports chronic longstanding heavy alcohol consumption. patient/guardian reports recent binge of alcohol consumption. street drugs, cocaine. - Family history:: not pertinent. ROS: 02:23 Unable to obtain ROS due to patient being uncooperative, rt Exam: 02:23 Constitutional: This is a well developed, well nourished patient who is awake, alert, rt and in no acute distress. Head/Face: Normocephalic, atraumatic. Chest/axilla: Normal chest wall appearance and motion. Nontender with no deformity. No lesions are appreciated. Cardiovascular: Regular rate and rhythm with a normal S1 and S2. No gallops, murmurs, or rubs. Normal PMI, no JVD. No pulse deficits. Respiratory: Lungs have equal breath sounds bilaterally, clear to auscultation and percussion. No rales, rhonchi or wheezes noted. No increased work of breathing, no retractions or nasal flaring. Skin: Warm, dry with normal turgor. Normal color with no rashes, no lesions, and no evidence of cellulitis. MS/ Extremity: Pulses equal, no cyanosis. Neurovascular intact. Full, normal range of motion. 02:23 ECG was reviewed by the Attending Physician. 02:23 Abdomen/GI: Tenderness epigastrium with mild guarding, no rebound, no abdominal distention, Vital Signs: 01:35 BP 101 / 60; Pulse 91; Resp 15 S; Temp 97.9(O); Pulse Ox 99% on R/A; Weight 86.18 kg lg3 (R); Height 5 ft. 5 in. (R); 02:55 BP 87 / 52; Pulse 99; Resp 16; Pulse Ox 97% ; jj7 04:00 BP 94 / 60; Pulse 100; Resp 16; Temp 97.9; Pulse Ox 96% ; jj7 04:32 BP 101 / 68; Pulse 100; Resp 17; Pulse Ox 95% ; jj7 01:35 Body Mass Index 31.62 (86.18 kg, 165.1 cm) lg3 MDM: 01:36 Patient medically screened. rt 03:46 Differential Diagnosis Pancreatitis, alcoholic gastritis, renal failure. Data reviewed: rt vital signs, nurses notes, lab test result(s), EKG, radiologic studies. Consideration of Admission/Observation Patient was admitted/placed on observation. Management of patient was discussed with the following: Hospitalist: Agrees to admit. I considered the following discharge prescriptions or medication management in the emergency department Medications were administered in the Emergency Department. See MAR. Independent interpretation of the following test(s) in the Emergency Department CT Scan: My interpretation is No intracranial hemorrhage patient CT scan images. Care significantly affected by the following chronic conditions: Hepatitis C. Care significantly affected by the following Social Determinants of Health: Misuse of alcohol and/or drugs. Counseling: I had a detailed discussion with the patient and/or guardian regarding the historical points, exam findings, and any diagnostic results supporting the discharge/admit diagnosis, lab results, the need for further work-up and treatment in the hospital. Response to treatment: the patient's symptoms have markedly improved after treatment. 12/23 01:38 Order name: CBC with Diff; Complete Time: 02:22 rt 12/23 01:38 Order name: CMP; Complete Time: 03:01 rt 12/23 01:38 Order name: Lipase; Complete Time: 03:01 rt 12/23 01:38 Order name: Urinalysis w/ reflexes rt 12/23 01:38 Order name: Troponin High Sensitivity; Complete Time: 03:01 rt 12/23 01:38 Order name: CPK; Complete Time: 03:01 rt 12/23 01:38 Order name: ETOH Level; Complete Time: 02:22 rt 12/23 01:38 Order name: UDS rt 12/23 03:53 Order name: CBC with Automated Diff EDMS 12/23 03:53 Order name: CBC with Automated Diff EDMS 12/23 03:53 Order name: CBC with Automated Diff EDMS 12/23 03:53 Order name: CBC with Automated Diff EDMS 12/23 03:53 Order name: Comprehensive Metabolic Panel EDMS 12/23 03:53 Order name: Comprehensive Metabolic Panel EDMS 12/23 03:53 Order name: Comprehensive Metabolic Panel EDMS 12/23 03:53 Order name: Comprehensive Metabolic Panel EDMS 12/23 01:38 Order name: CT Head C Spine rt 12/23 02:36 Order name: Abdomen EDMS 12/23 01:38 Order name: EKG; Complete Time: 01:38 rt 12/23 01:38 Order name: IV Saline Lock; Complete Time: 02:00 rt 12/23 01:38 Order name: Labs collected and sent; Complete Time: 02:00 rt 12/23 01:38 Order name: EKG - Nurse/Tech; Complete Time: 02:06 rt EC:23 Rate is 88 beats/min. Rhythm is regular, Normal Sinus Rhythm with No ectopy. QRS [place] rt is Normal. MD interval is normal. QRS interval is normal. QT interval is prolonged at 493 msec. No Q waves. T waves are Normal. No ST changes noted. Interpreted by me. Administered Medications: 02:00 Drug: NS 0.9% IV 1000 ml IV at 1 bolus Per protocol; 1000 mL bolus Route: IV; Rate: 1 jj7 bolus; Site: right antecubital; 03:00 Follow up: IV Status: Completed infusion j7 02:00 Drug: Famotidine IVP 20 mg IVP once; dilute with 10 mL 0.9% NaCl; give over 2 minutes jj7 Route: IVP; Site: right antecubital; 02:18 Follow up: Response: Marked relief of symptoms 02:00 Drug: Alum-Mag Hydroxide-Simeth PO Suspension (200 mg-200 mg-20 mg/5 mL) 30 ml PO once jj7 Route: PO; 02:30 Follow up: Response: No adverse reaction jj7 03:05 Drug: NS 0.9% IV 1000 ml IV at 1 bolus Per protocol; 1000 mL bolus Route: IV; Rate: 1 jj7 bolus; Site: right antecubital; 04:41 Follow up: IV Status: Completed infusion j7 Disposition Summary: 12/23/23 03:45 Hospitalization Ordered Notes: Hospitalization Status: Inpatient Admission rt Provider: Benjamin Mcrae rt Location: Telemetry/[facility] (Inpatient) rt Condition: Fair rt Problem: new rt Symptoms: have improved rt Bed/Room Type: Standard rt Room Assignment: 229(12/23/23 04:01) pm6 Diagnosis - Upper abdominal pain, unspecified rt - Acute kidney injury rt - Rhabdomyolysis rt Forms: - Medication Reconciliation Form rt - SBAR form rt - Leadership Thank You Letter rt Critical care time excluding procedures: 04:01 Critical care time: Bedside Care: 30 minutes, Consultation: 5 minutes. Total time: 35 rt minutes Signatures: Dispatcher [employer] EDMS Anne Tapia RN RN lg3 Zak Plummer RN RN jj7 Tong Matthews MD MD rt Jo Ann Espitia pm6 Corrections: (The following items were deleted from the chart) 02:36 01:38 Abdomen Pelvis W Con+CT.RAD.BRZ ordered. EDMS EDMS 04:01 03:45 rt pm6
[2023-12-23] MEDS ORDERED: ONDANSETRON 4 MG/2 ML VIAL IV PRN (03:48)
[2023-12-23] MEDS ORDERED: NA CHLORIDE 0.9% 1,000 ML IV SCH (04:00)
--- NOTE | 2023-12-23 04:05 | P.HP ---
Certification for Inpatient Patient admitted to: Inpatient With expected LOS: >2 Midnights Practitioner: I am a practitioner with admitting privileges, knowledge of patient current condition, hospital course, and medical plan of care. Services: Services provided to patient in accordance with Admission requirements found in Title 42 Section 412.3 of the Code of Federal Regulations Patient History Date of Service: 12/23/23 Reason for admission: Acute kidney injury, volume depletion, transaminitis, alcohol abuse, cocain History of Present Illness: 63-year-old male patient was medical history significant for hypertension, history of chronic hepatitis C infection who also has alcohol abuse history and drug of abuse use who came to the ED with complaint of abdominal pain. As per report given patient was found down and had been absent and not communicative for 2 days. He was brought to the ED with complaint of abdominal pain and he had imaging studiesdepicting some constipation. Lab done in the ED was significantly concerning for acute kidney injury with a creatinine of 3.89 from baseline of about 1.6. He also had mild hyponatremia with a sodium of 133, metabolic acidemia with a bicarb of 16 and gap of 40. He has elevated transaminases and elevated CPK of 8400. He was deemed to have significant volume depletion secondary to poor oral intake of fluid and fluid and he was started on IV fluid boluses. He was admitted for inpatient care and for management of his multiple acid-base disorder and suspicion for possible underlying alcohol related abdominal pathology. Lipase was normal at 29 at the time of this dictation. His CT scan also was pending full read at the time of this discussion. Allergies Sulfa (Sulfonamide Antibiotics) Allergy (Verified 04/26/23 20:57) unknown Home Medications: Aspirin Chewable [Aspirin Chewable*] 81 mg PO DAILY 04/26/23 Ferrous Sulfate 325 mg PO DAILY 04/26/23 Fluoxetine HCl [Prozac] 40 mg PO DAILY 04/26/23 Lisinopril [Zestril] 10 mg PO DAILY 04/26/23 Multivitamin 1 tab PO DAILY 04/26/23 Pantoprazole [Protonix Tab*] 40 mg PO Q48H 04/26/23 - Past Medical/Surgical History Diabetic: No -: Hypertension -: History of CVA -: Hyperlipidemia -: Erosive gastritis -: Abdominal aortic aneurysm -: Enlarged prostate -: Alcohol abuse -: Tobacco abuse -: Cocaine abuse Psychosocial/ Personal History: Patient is - Family History Father -: Heart disease Sister -: Diabetes - Social History Alcohol use: Yes CD- Drugs: No Caffeine use: Yes Review of Systems General: Weakness Eyes: Unremarkable ENT: Unremarkable Respiratory: Unremarkable Cardiovascular: Unremarkable Gastrointestinal: Abdominal Pain Genitourinary: Unremarkable Musculoskeletal: Unremarkable Integumentary: Unremarkable Neurological: Unremarkable Lymphatics: Unremarkable Physical Examination - Physical Exam General: Alert HEENT: Atraumatic Neck: Supple Respiratory: Normal air movement Cardiovascular: Regular rate/rhythm, Normal S1 S2 Gastrointestinal: Soft and benign Musculoskeletal: No swelling Neurological: Normal speech - Studies Laboratory Data (last 24 hrs) 12/23/23 12/23/23 01:51 01:51 WBC 12.80 H Hgb 10.0 L Hct 28.8 L Plt Count 223 Sodium 133 L Potassium 5.0 BUN 56 H Creatinine 3.89 H Glucose 77 Total Bilirubin 1.1 H AST 2011 H ALT 656 H Alkaline Phosphatase 109 Lipase 29 Assessment and Plan - Plan EVELIA: Present kidney function abnormality is deemed prerenal with volume depletion as cause for acute kidney injury. Has been started on IV fluid boluses. Continue normal saline infusion for management of hypovolume Volume depletion and also to treat acute kidney injury episode deemed secondary to ischemic ATN. Follow his clinical symptomatology closely. Transaminitis: Elevated transaminases is deemed secondary to alcohol abuse and perhaps ischemic injury. Will follow trend of liver enzymes with hydration and bowel rest. Rhabdomyolysis: Elevated CPK is deemed secondary to cocaine use and immobility. Will hydrate aggressively to avoid myoglobin induced tubular injury to the kidneys. Will have on bedrest and follow trend of CPK on daily labs. Cocaine abuse: We will continue to encourage stopping cocaine use. Rehydrates to assist with management and detoxification. Alcohol abuse: Will continue patient on CIWA protocol, have on banana bag and continue to discourage use of alcohol at diabetes level. History of hepatitis C infection: Management as per outpatient follow-up with gastroenterology/ID. Hyponatremia: Patient has low sodium 133. Will hydrate with normal saline infusion and follow daily labs. Metabolic acidemia: Bicarb is low at 16. Will replete with sodium bicarb pills and follow levels on daily labs. Prophylaxis: Heparin for DVT prophylaxis. CODE STATUS: Full code. Disposition: We will treat his multiple medical issues and he will be discharged once plan of care is finalized and he is deemed clinically stable. - Advance Directives Does patient have a Living Will: No Does patient have a Durable POA for Healthcare: No
[2023-12-23] MEDS ORDERED: SODIUM CHLORIDE 0.9% 10ML INJ IV PRN (04:48)
[2023-12-23] MEDS: NA CHLORIDE 0.9% 1,000 ML IV SCH ×4 (05:11→23:14)
[2023-12-23 05:27] VITALS: BMI 31.6
[2023-12-23 07:41] LABS: Specific Gravity 1.013 (1.005-1.030); Urine Bacteria <20 /HPF (<20); Urine Bilirubin NEGATIVE (Negative); Urine Blood 1+ (Negative); Urine Clarity Clear (Clear); Urine Color Light-Yellow (Yellow); Urine Glucose NEGATIVE (Negative); Urine Mucus Slight /HPF (None Seen); Urine Protein TRACE (Negative); Urine RBC <5 /HPF (None Seen); Urine Urobilinogen Normal (Normal); Urine pH 5.5 (5.0-7.0)
[2023-12-23 07:49] LABS: Barbiturates NEGATIVE (NEGATIVE); Benzodiazepines NEGATIVE (NEGATIVE); Cocaine POSITIVE (NEGATIVE); METHAMPHETAM NEGATIVE (NEGATIVE); Methadone NEGATIVE (NEGATIVE); Opiates NEGATIVE (NEGATIVE); Phencyclidine NEGATIVE (NEGATIVE); THC Cannibis NEGATIVE (NEGATIVE)
[2023-12-23] MEDS: THIAMINE 200 MG/2 ML INJ IVP SCH ×2 (09:00→09:05)
[2023-12-23] MEDS: PANTOPRAZOLE 40 MG INJ IVP SCH ×2 (09:05→20:46)
[2023-12-23] MEDS: HEPARIN 5000 UNIT/ML 1 ML VIAL SQ SCH ×2 (09:05→17:45)
[2023-12-23] MEDS: SODIUM BICARB 325 MG TAB PO SCH ×3 (09:05→20:46)
[2023-12-23] MEDS: FOLIC ACID 1 MG, MULTIVITAMINS INJ 10 ML, THIAMINE HCL 100 MG in NA CHLORIDE 0.9% 1,000 ML IV SCH (09:06)
--- NOTE | 2023-12-23 14:45 | P.PN ---
Subjective Date of Service: 12/23/23 Chief Complaint: Acute kidney injury, volume depletion, transaminitis, alcohol abuse, cocain Subjective: No new changes, Improving, Doing well Patient is resting, arrousable to call/ Answering questions appropriately Resting in the bed NAD Denies any pain or shortness of breath Vital stable <Rosa Dinhhoracio - Last Filed: 12/23/23 14:42> Date of Service: 12/23/23 <Yenni Xiong - Last Filed: 12/23/23 18:01> Review of Systems 10-point ROS is otherwise unremarkable <Rosa Dinhhoracio - Last Filed: 12/23/23 14:42> Physical Examination - Vital Signs Temperature: 98.9 F Blood Pressure: 136/67 Pulse: 16 Respirations: 101 Pulse Ox (%): 98 - Physical Exam General: Alert, Cooperative HEENT: Atraumatic, Normocephalic Neck: Supple, 2+ carotid pulse no bruit Respiratory: Clear to auscultation bilaterally, Normal air movement Cardiovascular: No edema, Normal pulses Capillary refill: <2 Seconds Gastrointestinal: Normal bowel sounds, Hypoactive, Non-distended Musculoskeletal: No swelling, No contractures Integumentary: No rashes, No breakdown Neurological: Normal speech, Normal tone, Normal affect - Studies Laboratory Data (last 24 hrs) 12/23/23 12/23/23 01:51 01:51 WBC 12.80 H Hgb 10.0 L Hct 28.8 L Plt Count 223 Sodium 133 L Potassium 5.0 BUN 56 H Creatinine 3.89 H Glucose 77 Total Bilirubin 1.1 H AST 2010 H ALT 656 H Alkaline Phosphatase 109 Lipase 29 <Mary Ann Dinh - Last Filed: 12/23/23 14:42> - Studies Laboratory Data (last 24 hrs) 12/23/23 12/23/23 01:51 01:51 WBC 12.80 H Hgb 10.0 L Hct 28.8 L Plt Count 223 Sodium 133 L Potassium 5.0 BUN 56 H Creatinine 3.89 H Glucose 77 Total Bilirubin 1.1 H AST 2010 H ALT 656 H Alkaline Phosphatase 109 Lipase 29 <Yenni Xiong - Last Filed: 12/23/23 18:01> Assessment And Plan - Current Problems (Diagnosis) (1) EVELIA (acute kidney injury) Current Visit: Yes Status: Acute (2) Transaminitis Current Visit: Yes Status: Acute (3) Rhabdomyolysis Current Visit: Yes Status: Acute (4) Cocaine abuse Current Visit: Yes Status: Acute (5) ETOH abuse Current Visit: Yes Status: Acute (6) Hyponatremia Current Visit: Yes Status: Acute - Plan EVELIA: Present kidney function abnormality is deemed prerenal with volume depletion as cause for acute kidney injury. Has been started on IV fluid boluses. Continue normal saline infusion for management of hypovolume Volume depletion and also to treat acute kidney injury episode deemed secondary to ischemic ATN. Follow his clinical symptomatology closely. Transaminitis: Elevated transaminases is deemed secondary to alcohol abuse and perhaps ischemic injury. Will follow trend of liver enzymes with hydration and bowel rest. Rhabdomyolysis: Elevated CPK is deemed secondary to cocaine use and immobility. Will hydrate aggressively to avoid myoglobin induced tubular injury to the kidneys. Will have on bedrest and follow trend of CPK on daily labs. Cocaine abuse: We will continue to encourage stopping cocaine use. Rehydrates to assist with management and detoxification. Alcohol abuse: Will continue patient on CIWA protocol, have on banana bag and continue to discourage use of alcohol at diabetes level. History of hepatitis C infection: Management as per outpatient follow-up with gastroenterology/ID. Hyponatremia: Patient has low sodium 133. Will hydrate with normal saline infusion and follow daily labs. Metabolic acidemia: Bicarb is low at 16. Will replete with sodium bicarb pills and follow levels on daily labs. Prophylaxis: Heparin for DVT prophylaxis. CODE STATUS: Full code. Discharge Plan: Home Plan to discharge in: 24 Hours - Code Status/Comfort Care Code Status Assessed: Yes (Full code) Code Status: Full Code Physician Review: Patient Assessed, Agree with Above Assessment and Plan Critical Care: No Time Spent Managing PTS Care (In Minutes): 35 (Minutes) <Mary Ann Dinh - Last Filed: 12/23/23 14:42> - Plan Pt seen and examined. I agree with the note by the FIXING CARPENTER. Continue IVF and trend CK. Pt was advised to quit using cocaine. Avoid BB. <Yenni Xiong - Last Filed: 12/23/23 18:01>
--- NOTE | 2023-12-23 17:32 | RAD REPORT ---
EXAM DESCRIPTION: Head C Spine Mpr Wo Con CLINICAL HISTORY: Ams TECHNIQUE: Contiguous axial CT images obtained through the cervical spine without IV contrast. Cor onal and sagittal reformatted images also provided. This exam was performed according to our departmental dose-optimization program, which includes autom ated exposure control, adjustment of the mA and/or kV according to patient size and/or use of iterati ve reconstruction technique. COMPARISON: None available for comparison FINDINGS: Vertebra: No acute fracture or subluxation. Degenerative changes: Multilevel facet joint arthropathy. Narrowing of intervertebral disc spaces mos t prominently at C5-6 and C6-7. Anterior osteophytes. Prevertebral soft tissues: Unremarkable Lung apices: Clear IMPRESSION: 1. No acute cervical spine injury. 2. Multilevel degenerative changes. EXAM DESCRIPTION: Head C Spine Mpr Wo Con CLINICAL HISTORY: Ams TECHNIQUE: Contiguous axial CT images obtained through the brain without IV contrast. Coronal and sa gittal reformatted images were provided. This exam was performed according to our departmental dose-optimization program, which includes autom ated exposure control, adjustment of the mA and/or kV according to patient size and/or use of iterati ve reconstruction technique. COMPARISON: None available for comparison FINDINGS: Brain: Mild age related loss of brain volume and chronic white matter ischemic changes. No focal mass effect. Parr-white matter differentiation is within normal limits. No hemorrhage. Chronic left cerebellar infarction with encephalomalacia. Ventricles: No ventriculomegaly or midline shift. Extra-axial spaces: No extra-axial collection or hemorrhage. Paranasal sinuses and mastoid air cells: Well-aerated Bones: Unremarkable Soft tissues: Unremarkable IMPRESSION: No acute intracranial injury. Mild age-related loss of brain volume and chronic white matter ischemic changes. Chronic left cerebellar infarction with encephalomalacia. Electronically signed by: Luis Oneil MD 12/23/2023 03:35 AM DOOR REPAIRER BUS Due to temporary technical issues with the PACS/Fluency reporting system, reports are being signed by the in house radiologists without review as a courtesy to insure prompt reporting. The interpreting radiologist is fully responsible for the content of the report.
--- NOTE | 2023-12-23 17:34 | RAD REPORT ---
EXAM DESCRIPTION: Abdomen Pelvis Wo Contrast RadLex: CT ABDOMEN PELVIS WITHOUT IV CONTRAST CLINICAL HISTORY: 63 years Male; ABD PAIN; IV ONLY Bed Name: 15 TECHNIQUE: CT of the abdomen and pelvis without contrast. All CT scans at this facility use dose modulation, iterative reconstruction, and/or weight based dosi ng when appropriate to reduce radiation dose to as low as reasonably achievable. COMPARISON: None. FINDINGS: Lower thorax: Bibasilar atelectasis. Coronary artery calcifications. Abdomen: Stomach: Within normal limits Liver: No focal lesions. Hepatic steatosis. No intrahepatic ductal distention. Gallbladder: Nondistended Pancreas: Within normal limits Spleen: Within normal limits Right kidney: No hydronephrosis. No renal or ureteral calculi. Left kidney: No hydronephrosis. No renal or ureteral calculi. Adrenal glands: Within normal limits Vascular structures: Atherosclerosis of the abdominal aorta and major branches. Lymph nodes: No lymphadenopathy by size criteria Pelvis: Small bowel: No significant distention. Appendix: Within normal limits Colon: No distention or acute pericolonic edema. Colonic diverticulosis. Peritoneum: No free intraperitoneal fluid or air. Bones: No acute bone findings. Bladder: Unremarkable. Reproductive organs: No acute findings. Note that evaluation of the bowel and solid organs is somewhat limited due to lack of intravenous and oral contrast. IMPRESSION: 1. No acute abdominopelvic findings. 2. Colonic diverticulosis without diverticulitis. 3. Hepatic steatosis. Electronically signed by: Jaylin Kimble MD 12/23/2023 03:21 AM GAUGER CHIEF DELIVERY Due to temporary technical issues with the PACS/Fluency reporting system, reports are being signed by the in house radiologists without review as a courtesy to insure prompt reporting. The interpreting radiologist is fully responsible for the content of the report.
[2023-12-24] MEDS: NA CHLORIDE 0.9% 1,000 ML IV SCH ×5 (00:06→22:14)
[2023-12-24] MEDS: HEPARIN 5000 UNIT/ML 1 ML VIAL SQ SCH ×3 (00:26→17:44)
[2023-12-24 04:21] LABS: Absolute Lymphocytes (CBC) 1.5 K/uL (0.7-4.9); Hematocrit 25.6 % (39.6-49.0); Lymphocytes % 26.8 % (15.3-44.8); MCV 99.8 fL (80-100); MPV 8.4 fL (7.6-11.3); Platelets 125 thou/uL (152-406); RBC Red Blood Cell Count 2.57 M/uL (4.33-5.43)
[2023-12-24 05:09] LABS: Potassium 4.1 mEq/L (3.5-5.1)
[2023-12-24 05:11] LABS: Bilirubin Total 0.2 mg/dL (0.2-1.0); Protein, Total 5.9 g/dL (6.4-8.2)
[2023-12-24] MEDS: THIAMINE 200 MG/2 ML INJ IVP SCH (09:00)
[2023-12-24] MEDS: FOLIC ACID 1 MG, MULTIVITAMINS INJ 10 ML, THIAMINE HCL 100 MG in NA CHLORIDE 0.9% 1,000 ML IV SCH (09:01)
[2023-12-24] MEDS: SODIUM BICARB 325 MG TAB PO SCH ×3 (09:02→21:14)
[2023-12-24] MEDS: PANTOPRAZOLE 40 MG INJ IVP SCH ×2 (09:02→21:14)
[2023-12-24 14:28] LABS: Hepatitis B Core IgM Nonreactive (Nonreactive); Hepatitis B surface AG Interp. Nonreactive (Nonreactive); Hepatitis C Virus Ab Reactive (Nonreactive)
--- NOTE | 2023-12-24 17:27 | P.PN ---
Subjective Date of Service: 12/24/23 Chief Complaint: Acute kidney injury, volume depletion, transaminitis, alcohol abuse, cocain Subjective: No new changes, Improving, Doing well Patient is resting, arrousable to call/ Answering questions appropriately Resting in the bed NAD Denies any pain or shortness of breath Vital stable <Mary Ann Dinh - Last Filed: 12/24/23 17:24> Date of Service: 12/24/23 <RadhaYenni estes Brenda - Last Filed: 12/24/23 20:50> Review of Systems 10-point ROS is otherwise unremarkable <Mary Ann Dinh - Last Filed: 12/24/23 17:24> Physical Examination - Vital Signs Temperature: 98.0 F Blood Pressure: 148/74 Pulse: 76 Respirations: 18 Pulse Ox (%): 96 - Physical Exam General: Alert, In no apparent distress, Oriented x3 HEENT: Atraumatic, Normocephalic Neck: Supple, 2+ carotid pulse no bruit Respiratory: Clear to auscultation bilaterally, Normal air movement Cardiovascular: No edema, Normal pulses Capillary refill: <2 Seconds Gastrointestinal: Normal bowel sounds, Soft and benign, Non-distended Musculoskeletal: No clubbing, No swelling Integumentary: No rashes Neurological: Normal speech, Normal tone, Normal affect <Mary Ann Dinh - Last Filed: 12/24/23 17:24> Assessment And Plan - Current Problems (Diagnosis) (1) EVELIA (acute kidney injury) Current Visit: Yes Status: Acute (2) Transaminitis Current Visit: Yes Status: Acute (3) Rhabdomyolysis Current Visit: Yes Status: Acute (4) Cocaine abuse Current Visit: Yes Status: Acute (5) ETOH abuse Current Visit: Yes Status: Acute (6) Hyponatremia Current Visit: Yes Status: Acute - Plan EVELIA: Present kidney function abnormality is deemed prerenal with volume depletion as cause for acute kidney injury. Has been started on IV fluid boluses. Continue normal saline infusion for management of hypovolume Volume depletion and also to treat acute kidney injury episode deemed secondary to ischemic ATN. Follow his clinical symptomatology closely. Transaminitis: Elevated transaminases is deemed secondary to alcohol abuse and perhaps ischemic injury.-improving Will follow trend of liver enzymes with hydration and bowel rest. Rhabdomyolysis: Elevated CPK is deemed secondary to cocaine use and immobility.-improving Will hydrate aggressively to avoid myoglobin induced tubular injury to the kidneys. Will have on bedrest and follow trend of CPK on daily labs. Cocaine abuse: We will continue to encourage stopping cocaine use. Rehydrates to assist with management and detoxification. Alcohol abuse: Will continue patient on CIWA protocol, have on banana bag and continue to discourage use of alcohol at diabetes level. History of hepatitis C infection: Management as per outpatient follow-up with gastroenterology/ID. Hyponatremia: Patient has low sodium 133. Will hydrate with normal saline infusion and follow daily labs. Metabolic acidemia: Bicarb is low at 16. Will replete with sodium bicarb pills and follow levels on daily labs. Prophylaxis: Heparin for DVT prophylaxis. CODE STATUS: Full code. Discharge Plan: Home Plan to discharge in: 24 Hours - Code Status/Comfort Care Code Status Assessed: Yes (full code) Code Status: Full Code Physician Review: Patient Assessed, Agree with Above Assessment and Plan Critical Care: No Time Spent Managing PTS Care (In Minutes): 35 (minutes) <Mary Ann Dinh - Last Filed: 12/24/23 17:24> - Plan Pt seen and examined. I agree withe the note by the ENVIRONMENTAL PERMITTING SPECIALIST. Continue IVF and trend CK. Will likely dc tomorrow <Yenni Xiong - Last Filed: 12/24/23 20:50>
[2023-12-25] MEDS: HEPARIN 5000 UNIT/ML 1 ML VIAL SQ SCH ×2 (01:07→09:49)
[2023-12-25 04:58] LABS: Absolute Lymphocytes (CBC) 1.7 K/uL (0.7-4.9); Hematocrit 27.8 % (39.6-49.0); Lymphocytes % 31.2 % (15.3-44.8); MCV 99.6 fL (80-100); MPV 8.6 fL (7.6-11.3); Platelets 114 thou/uL (152-406)
[2023-12-25 05:27] LABS: Bilirubin Total 0.3 mg/dL (0.2-1.0); Potassium 4.1 mEq/L (3.5-5.1); Protein, Total 6.2 g/dL (6.4-8.2)
[2023-12-25] MEDS: NA CHLORIDE 0.9% 1,000 ML IV SCH (07:21)
[2023-12-25 08:26] VITALS: BP 161/85; TEMP 97.9
[2023-12-25] MEDS: FOLIC ACID 1 MG, MULTIVITAMINS INJ 10 ML, THIAMINE HCL 100 MG in NA CHLORIDE 0.9% 1,000 ML IV SCH (09:00)
[2023-12-25] MEDS: THIAMINE 200 MG/2 ML INJ IVP SCH (09:00)
--- NOTE | 2023-12-25 09:04 | P.DS ---
Admission Date: 12/23/23 Discharge Date: 12/25/23 Reason for Admission: Acute kidney injury, volume depletion, transaminitis, alcohol abuse, cocain - Problems (1) EVELIA (acute kidney injury) Status: Acute (2) Transaminitis Status: Acute (3) Rhabdomyolysis Status: Acute (4) Cocaine abuse Status: Acute (5) ETOH abuse Status: Acute (6) Hyponatremia Status: Acute Brief History of Present Illness: History of Present Illness: 63-year-old male patient was medical history significant for hypertension, history of chronic hepatitis C infection who also has alcohol abuse history and drug of abuse use who came to the ED with complaint of abdominal pain. As per report given patient was found down and had been absent and not communicative for 2 days. He was brought to the ED with complaint of abdominal pain and he had imaging studiesdepicting some constipation. Lab done in the ED was significantly concerning for acute kidney injury with a creatinine of 3.89 from baseline of about 1.6. He also had mild hyponatremia with a sodium of 133, metabolic acidemia with a bicarb of 16 and gap of 40. He has elevated transaminases and elevated CPK of 8400. He was deemed to have significant volume depletion secondary to poor oral intake of fluid and fluid and he was started on IV fluid boluses. He was admitted for inpatient care and for management of his multiple acid-base disorder and suspicion for possible underlying alcohol related abdominal pathology. Lipase was normal at 29 at the time of this dictation. His CT scan also was pending full read at the time of this discussion. Hospital Course: Mr. Lux is a pleasant 63-year-old male patient with a past medical history significant for hypertension, chronic hepatitis C infection and EtOH and drug abuse who was admitted to the [facility] on 12/23/2023 for abdominal pain. Patient was admitted to the hospital with acute kidney injury, transaminitis and rhabdomyolysis. Patient was started on IV hydration. On on 12/25/2023, patient was seen on morning rounds and deemed medically stable for discharge. Patient was discharged with instructions to schedule follow-up appointments with PCP in 1 week. Discussed about importance of abstaining from drugs and alcohol. Patient voiced understanding.. The patient and family members were given the opportunity to ask questions and reported no further questions. 1. Please call and schedule a follow-up appointment with your PCP ( [text]) in 1 week - Please follow-up with your PCP for medication refills/adjustments -Please call if any questions regarding hospital stay -Please call nursing station at [phone] if any nursing or medication questions -Return to the emergency room if symptoms worsen. <Mary Ann Dinh - Last Filed: 12/25/23 09:23> Admission Date: 12/23/23 Discharge Date: 12/26/23 Hospital Course: Pt seen and examined. 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 Ok to discharge pt. He was advised to stop using cocaine <Yenni Xiong - Last Filed: 12/26/23 21:53> Disposition: ROUTINE DISCHARGE Discharge Condition: GOOD Vital Signs/Physical Exam: Temp Pulse Resp BP Pulse Ox 97.9 F 79 14 161/85 H 96 12/25/23 08:00 12/25/23 08:00 12/25/23 08:00 12/25/23 08:00 12/25/23 08:00 General: Alert, Oriented x3 HEENT: Atraumatic, Normocephalic Neck: Supple, 2+ carotid pulse no bruit Respiratory: Clear to auscultation bilaterally, Normal air movement Cardiovascular: No edema, Normal pulses Capillary refill: <2 Seconds Gastrointestinal: Normal bowel sounds, Soft and benign, Non-distended Musculoskeletal: No clubbing, No swelling Integumentary: No rashes, No breakdown Neurological: Normal speech, Normal tone, Normal affect Laboratory Data at Discharge: WBC 5.40 thou/uL (4.3-10.9) 12/25/23 03:43 Hgb 9.7 g/dL (13.6-17.9) L D 12/25/23 03:43 Hct 27.8 % (39.6-49.0) L 12/25/23 03:43 Plt Count 114 thou/uL (152-406) L 12/25/23 03:43 Sodium 142 mEq/L (136-145) 12/25/23 03:43 Potassium 4.1 mEq/L (3.5-5.1) 12/25/23 03:43 BUN 10 mg/dL (7-18) 12/25/23 03:43 Creatinine 0.96 mg/dL (0.70-1.30) 12/25/23 03:43 Glucose 111 mg/dL (74-106) H 12/25/23 03:43 Total Bilirubin 0.3 mg/dL (0.2-1.0) 12/25/23 03:43 AST 239 U/L (15-37) H 12/25/23 03:43 ALT 311 U/L (16-61) H 12/25/23 03:43 Alkaline Phosphatase 83 U/L (45-117) 12/25/23 03:43 Lipase 29 U/L (13-75) 12/23/23 01:51 <DinhMary Ann yee - Last Filed: 12/25/23 09:23> Vital Signs/Physical Exam: Temp Pulse Resp BP Pulse Ox 97.9 F 79 14 161/85 H 96 12/25/23 08:00 12/25/23 08:00 12/25/23 08:00 12/25/23 08:00 12/25/23 08:00 Laboratory Data at Discharge: WBC 5.40 thou/uL (4.3-10.9) 12/25/23 03:43 Hgb 9.7 g/dL (13.6-17.9) L D 12/25/23 03:43 Hct 27.8 % (39.6-49.0) L 12/25/23 03:43 Plt Count 114 thou/uL (152-406) L 12/25/23 03:43 Sodium 142 mEq/L (136-145) 12/25/23 03:43 Potassium 4.1 mEq/L (3.5-5.1) 12/25/23 03:43 BUN 10 mg/dL (7-18) 12/25/23 03:43 Creatinine 0.96 mg/dL (0.70-1.30) 12/25/23 03:43 Glucose 111 mg/dL (74-106) H 12/25/23 03:43 Total Bilirubin 0.3 mg/dL (0.2-1.0) 12/25/23 03:43 AST 239 U/L (15-37) H 12/25/23 03:43 ALT 311 U/L (16-61) H 12/25/23 03:43 Alkaline Phosphatase 83 U/L (45-117) 12/25/23 03:43 Lipase 29 U/L (13-75) 12/23/23 01:51 <Yenni Xiong - Last Filed: 12/26/23 21:53> Diet: Low sodium Activity: Ad yamila Time spent managing pt's care (in minutes): 55 (minutes) <Rosa Dinhhoracio - Last Filed: 12/25/23 09:23> <Yenni Xiong - Last Filed: 12/26/23 21:53> Home Medications: Aspirin Chewable [Aspirin Chewable*] 81 mg PO DAILY 04/26/23 Ferrous Sulfate 325 mg PO DAILY 04/26/23 Fluoxetine HCl [Prozac] 40 mg PO DAILY 04/26/23 Lisinopril [Zestril] 10 mg PO DAILY 04/26/23 Multivitamin 1 tab PO DAILY 04/26/23 Pantoprazole [Protonix Tab*] 40 mg PO DAILY 04/26/23 Simvastatin [Zocor] 40 mg PO DAILY 12/23/23 Physician Discharge Instructions: PROBLEM: EVELIA. Rhabdomyolysis. Cocaine abuse GOAL: Clear understanding of disease process INSTRUCTIONS: Diet: Low sodium Activity: Ad yamila Date Given: Mr. Lux is a pleasant 63-year-old male patient with a past medical history significant for hypertension, chronic hepatitis C infection and EtOH and drug abuse who was admitted to the [facility] on 12/23/2023 for abdominal pain. Patient was admitted to the hospital with acute kidney injury, transaminitis and rhabdomyolysis. Patient was started on IV hydration. On on 12/25/2023, patient was seen on morning rounds and deemed medically stable for discharge. Patient was discharged with instructions to schedule follow-up appointments with PCP in 1 week. Discussed about importance of abstaining from drugs and alcohol. Patient voiced understanding.. The patient and family members were given the opportunity to ask questions and reported no further questions. 1. Please call and schedule a follow-up appointment with your PCP ( [text]) in 1 week - Please follow-up with your PCP for medication refills/adjustments -Please call if any questions regarding hospital stay -Please call nursing station at [phone] if any nursing or medication questions -Return to the emergency room if symptoms worsen.
[2023-12-25] MEDS: SODIUM BICARB 325 MG TAB PO SCH (09:49)
[2023-12-25] MEDS: PANTOPRAZOLE 40 MG INJ IVP SCH (09:49)
[2023-12-25 10:34] VITALS: O2SAT 79
--- NOTE | 2023-12-26 15:11 | EKG ---
Test Date: 2023-12-23 Test Time: 02:03:00 Flake Miller Helper: CHAITANYA MEASUREMENT RESULTS: Intervals: Rate: 88 NV: 168 QRSD: 74 QT: 408 QTc: 493 [place]: P: 75 NV: 168 QRS: 60 T: 64 INTERPRETIVE STATEMENTS: Normal sinus rhythm Prolonged QT Abnormal ECG Compared to ECG 05/28/2023 11:53:46 Prolonged QT interval now present Sinus tachycardia no longer present Electronically Signed On 12-26-23 15:02:53 SCIENTIFIC DIVER by Kale Sigala
== END 2023-12-25 10:16 | disposition home or self-care (01) | DRG 557 ==
LOC: ER 01:34 → 2ND 03:48
PROVIDERS: ADMIT Internal Medicine Nephrology; ATTEND Hospitalist
DX: M62.82 Rhabdomyolysis (principal); N17.0 Acute kidney failure with tubular necrosis; E87.1 Hypo-osmolality and hyponatremia; E87.20 Acidosis, unspecified; I10 Essential (primary) hypertension; E78.00 Pure hypercholesterolemia, unspecified; F10.10 Alcohol abuse, uncomplicated; K59.00 Constipation, unspecified; E86.9 Volume depletion, unspecified; F14.10 Cocaine abuse, uncomplicated; K21.9 Gastro-esophageal reflux disease without esophagitis; B18.2 Chronic viral hepatitis C; R79.89 Other specified abnormal findings of blood chemistry; Z63.5 Disruption of family by separation and divorce; Z88.2 Allergy status to sulfonamides; Z86.73 Personal history of transient ischemic attack (TIA), and cerebral infarction without residual deficits; Z79.82 Long term (current) use of aspirin; Z79.899 Other long term (current) drug therapy
CPT/HCPCS: 36415; 70450; 72125; 74176; 80053; 80074; 80307; 81001; 82077; 82550; 83690; 84484; 85025; 93005; C9113; J1644; J3411; J7030

== ENCOUNTER 2024-10-17 11:02 | Observation (INO) | payer MEDICARE ==
--- OUTSIDE RECORDS SUMMARY | 2024-10-17 11:06 | XMS REPORT | Continuity of Care Document ---
Author Name Unknown Address [address] [facility] [place] [address] [facility] thconnect Address [address] [facility] [address] [place] [address] Care Team Providers Care Etl Architect Name Role Phone Trevor Morris Attending Clinician Dania Loaiza Attending Clinician Josse_Jodee Attending Clinician Unavailable Rafael-Mbayo_A_AH Attending Clinician Unavailable Ogbechiagustín_L Admitting Clinician Unavailable Rafael-Mbayo_A_AH Admitting Clinician Unavailable Payers Payer Name Policy Type Policy Number Effective Date Expirati on Date Source [facility] (MEDICARE REPLACEMENT HMO) [id number] 00:00:00 [facility] ([facility] - HMO) [id number] 2019 00:00:00 Allergies, Adverse Reactions, Alerts Allergy Name Allergy Type Status Severity Reaction(s) Onset Date Inactive Date Treating Clinician Comments Source Sulfa Antibiot ics Drug Allergy Active [facility] Medications Ordered Medication Name Filled Medication Name Start Date Stop Date Current Medication? Ordering Clinician Indication Dosage Frequency Signature (SIG) Comments Components Source fluoxetine hcl 40 mg capsule fluoxetine hcl 40 mg capsule Yes [facility] lisinopril 10 mg tablet lisinopril 10 mg tablet Yes [facility] simvastatin 40 mg tablet simvastatin 40 mg tablet Yes [facility] pantoprazol e sodium [address] pantoprazol e sodium [address] Yes [facility] Encounters Start Date/Time End Date/Time Encounter Type Admission Type Attending Clinicians Care Facility Care Department Encounter ID Source 2024-06-21 15:00:00 2024-06-21 15:30:00 [facility] Refill Trevor Morris [id number] Pending Sale To [facility] 2023-11-01 21:45:00 2023-11-01 22:05:00 [employer] Panel-dire cted Gap Closure Dania Hargrovebalwinder [id number] [facility] 2023-08-02 17:10:00 2023-08-02 17:30:00 Care OnDemand - Gap Closure Dania Hargrovegarfieldabel [id number] [facility] 2023-06-15 16:30:00 2023-06-15 17:30:00 CAV Dania Loaiza [id number]. [id number]. [id number] [facility] 2023-06-01 00:00:00 2023-06-01 00:00:00 Outpatient Ogbechie_L DMG DMG [id number] [facility] 2023-06-01 00:00:00 2023-06-01 00:00:00 Outpatient Ogbechie_L DMG DMG [id number] [facility] 2022-06-04 03:40:00 2022-06-04 03:40:00 Outpatient DMG DMG [id number] [facility] Medical [facility] 2022-06-04 00:00:00 2022-06-04 00:00:00 Outpatient DMG DMG [id number] [facility] 2021-12-14 08:00:00 2021-12-14 08:00:00 Outpatient DMG DMG [id number] [facility] 2021-12-04 09:00:00 2021-12-04 09:00:00 Outpatient DMG [facility] [id number] [facility] 2021-03-18 04:31:00 2021-03-18 04:31:00 Outpatient Rafael-Mbayo _A_AH VFP VFP [id number] [facility] 2020-01-17 04:19:00 2020-01-17 04:19:00 Outpatient Rafael-Mbayo _A_AH VFP VFP [id number] [facility] 2020-01-17 04:19:00 2020-01-17 04:19:00 Outpatient Rafael-Mbayo _A_AH VFP VFP [id number] [facility] 2020-01-17 04:19:00 2020-01-17 04:19:00 Outpatient Rafael-Mbayo _A_AH VFP VFP [id number] [facility] 2020-01-17 04:19:00 2020-01-17 04:19:00 Outpatient Rafael-Mbayo _A_AH VFP VFP [id number] [facility] 2020-01-17 04:19:00 2020-01-17 04:19:00 Outpatient Rafael-Mbayo _A_AH VFP VFP [id number] [facility] Notes Date/Time Note Provider Source 2024-06-21 15:00:00 ASSESSMENT SUMMARY LORETO LANG III is a 64 year old man seen today by [facility] for a [facility] OnDemand Visit. [facility] OnDemand Visits are designed to target a specific urgent or non-urgent clinical concern. See below for teaching and instruction given regarding specific diagnoses. Member verbalized understanding to all. Members Preferred Language [place] Patient Currently Located in their home state of [place], YES DIAGNOSIS [id number] - Essential (primary) gujtryvqygdiM70.5 - Hyperlipidemia, sqdzsensbbuN73.9 - Anxiety disorder, lkvqqxsmrsaY98.1 - Encounter for screening for diabetes mellitus HISTORY OF PRESENT ILLNESS History of Present Illness: 64 yo M referred for OD visit from [facility] team for medication refills. Recommended medication refills: magii scheduled, refill assistance LISINOPRIL TAB 10MG , #90 1 tablet daily member's number [facility] [phone] He is also requesting a refill of the Simvastatin 40mg qd and Fluoxetine 40mg qd. He states has been on the Fluoxteine "for years". He states he is stable on that dose. He states he feels much better when he takes his Fluoxetine. It helps with depression and anxiety. Denies SI. Member currently denies any acute symptoms or other concerns. Active Problems: HTN, Anxiety, GERD, HLD, CKD2, Did not check BP today Allergies: Sulfa Antibiotics / other Recent labs: no labs available Pharmacy: - [facility] [id number] [facility] [phone] Recent Labs: There are no labs in our system. He states he has not had blood work and several years. I explained that I would be willing to send in a 30-day supply as a bridge prescription of Simvastatin, fluoxetine, and lisinopril. I explained that he needed to have lab work drawn within the next 30 days. I explained that once we have resulted lab workWe would be happy to extend the prescriptions to a 3-month supply if appropriate. Patient verbalizes understanding and is agreeable to get lab work done. Dx: I10 - Essential (primary) hypertension Additional Diagnosis Notes: Meds: lisinopril 10 mg tablet - SUBMIT Sig: Take 1 tablet by mouth once daily | Quantity: 30 Tablet | Refills: 0 Labs: CMP Dx: E78.5 - Hyperlipidemia, unspecified Additional Diagnosis Notes: Meds: simvastatin 40 mg tablet - SUBMIT Sig: Take 1 tablet by mouth once daily | Quantity: 30 Tablet | Refills: 0 Labs: CMP, Lipid Panel Dx: F41.9 - Anxiety disorder, unspecified Additional Diagnosis Notes: fluoxetine hcl 40 mg capsule - SUBMIT Sig: Take 1 capsule by mouth once daily | Quantity: 30 Tablet | Refills: 0 Dx: Z13.1 - Encounter for screening for diabetes mellitus Additional Diagnosis Notes: Labs: A1C GENERAL REVIEW OF SYSTEMS Review of systems negative unless otherwise indicated above DEVICE ORDERING (active clinical management) APPOINTMENT CPT CODE Did you review the patient's prescription and non-prescription drugs, vitamins, herbal remedies, and other supplements, AND is the accompanying medication list documented in the medical record?: No Please indicate how this visit was conducted: Telephone Visit Time: 5-10 minutes CARE COORDINATION, REFERRALS, AND SCHEDULING Member Follow Up/Coordination: Yes [facility]
[2024-10-17] MEDS ORDERED: THIAMINE 200 MG/2 ML INJ ONE (11:19)
[2024-10-17] MEDS ORDERED: FAMOTIDINE 20 MG/2 ML VIAL IV ONE (11:19)
[2024-10-17] MEDS ORDERED: NA CHLORIDE 0.9% 2,000 ML ONE (11:20)
[2024-10-17] MEDS ORDERED: FOLIC ACID 5 MG/ML VIAL ONE (11:20)
--- NOTE | 2024-10-17 11:49 | RAD REPORT ---
EXAMINATION: ONE VIEW CHEST XR CLINICAL INDICATION: Male, 64 years old.,COUGH TECHNIQUE: Frontal chest projection is submitted. Examination is limited by patient positioning and t echnique. COMPARISON: 05/28/2023 FINDINGS: The lungs are well inflated and clear. No pneumothorax or sizable effusion. The heart is normal in s ize. Mediastinal contours are unremarkable. IMPRESSION: No acute intrathoracic abnormalities.
--- NOTE | 2024-10-17 11:59 | RAD REPORT ---
EXAM: CT brain without contrast HISTORY: TRAUMA COMPARISON: 12/23/2023 and 04/13/2024 TECHNIQUE: Multiple contiguous axial images were obtained and a CT of the brain without contrast. Sag ittal and coronal reformats were performed. FINDINGS: No evidence of hydrocephalus, intracranial hemorrhage, or extra-axial fluid collection. The brain is normal in morphology. The calvarium is intact. The visualized paranasal sinuses and mastoid air cells are essentially clear . IMPRESSION: No evidence of acute intracranial abnormality. EXAM: CT of the cervical spine without contrast HISTORY: TRAUMA COMPARISON: None TECHNIQUE: Multiple contiguous axial images were obtained in a CT of the cervical spine without contr ast. Sagittal and coronal reformats were performed. FINDINGS: The vertebral bodies demonstrate normal height and alignment. No evidence of acute fracture or subluxation.. Mild to moderate degenerative changes with disc height loss at C5-6 and C6-7, and mild to moderate degrees of neural foraminal narrowing bilaterally at those 2 levels. The findings ar e stable. No prevertebral soft tissue swelling is seen. The posterior facets are well aligned. Normal alignment of the skull base with the cervical spine is seen. The lung apices are unremarkable. IMPRESSION: No evidence of acute osseous abnormality of the cervical spine. Stable degenerative changes as above.
[2024-10-17] MEDS: FOLIC ACID 1 MG, MULTIVITAMINS INJ 10 ML, THIAMINE HCL 100 MG in NA CHLORIDE 0.9% 1,000 ML IV ONE (12:00)
--- NOTE | 2024-10-17 12:11 | RAD REPORT ---
EXAM: CT CHEST, ABDOMEN AND PELVIS WITHOUT CONTRAST CLINICAL INDICATION: Male, 64 years old. [facility] MAIN PAIN Bed Name: 18 TECHNIQUE: CT chest, abdomen and pelvis was performed, without IV contrast, as per department protoco l. Axial, sagittal and coronal reconstructions were obtained. One or more of the following dose reduction techniques were used: Automated exposure control, adjustment of the mA and/or kV according to the patient size, and/or iterative reconstruction. Unless otherwise specified, incidental findings do not require dedicated imaging follow-up. COMPARISON: 01/12/2022 and 04/13/2024 FINDINGS: The lack of intravenous contrast limits the sensitivity of this exam for evaluation of solid visceral organs, vascular structures, and retroperitoneum. Chest: LOWER NECK/CHEST WALL: Visualized thyroid gland and soft tissues are normal. LUNGS AND AIRWAYS: Airways are clear. No evidence of airspace or interstitial process. No nodules. PLEURA: No pleural effusion. No pneumothorax. Hemidiaphragms are normally positioned. MEDIASTINUM AND LYMPH NODES: No mediastinal mass or fluid collection. Normal size mediastinal, hilar, and axillary lymph nodes. THORACIC AORTA: Normal caliber and configuration. PULMONARY ARTERIES: Normal caliber. HEART: Unremarkable. Abdomen/Pelvis LIVER: Normal in size and contour. No focal lesion. GALLBLADDER/BILE DUCTS: No biliary ductal dilatation. PANCREAS: No mass, ductal dilation, or claudio-pancreatic fluid. SPLEEN: Normal size. No focal lesion. ADRENALS: Normal; no mass. KIDNEYS AND URETERS: Normal size and contour. No hydronephrosis. GASTROINTESTINAL TRACT: Stomach is non-dilated. Small bowel has normal course and caliber. No colonic wall thickening or pericolonic inflammatory changes. PERITONEUM: No free fluid. LYMPH NODES: No lymphadenopathy. ABDOMINAL AORTA AND OTHER VESSELS: Normal caliber aorta and IVC. URINARY BLADDER: Normal contour. REPRODUCTIVE ORGANS: No pathologic process. MUSCULOSKELETAL: No acute or suspicious osseous abnormality. ADDITIONAL FINDINGS: None IMPRESSION: No acute or significant abnormalities in the chest, abdomen, or pelvis.
[2024-10-17 12:15] LABS: Absolute Basophils 0.1 K/uL (0-0.5); Absolute Eosinophils 0.3 K/uL (0-0.5); Absolute Lymphocytes (CBC) 1.6 K/uL (0.7-4.9); Absolute Monocytes 0.8 K/uL (0.1-1.3); Absolute Neutrophil 5.8 K/uL (1.8-8.0); Eosinophils % 3.1 % (0-4.4); Hematocrit 32.2 % (39.6-49.0); Hemoglobin 10.9 g/dL (13.6-17.9); Lymphocytes % 19.1 % (15.3-44.8); MCH 33.5 pg (27.0-35.0); MCHC 33.9 g/dL (32.0-36.0); MCV 98.6 fL (80-100); MPV 8.3 fL (7.6-11.3); Monocytes % 9.3 % (3.3-12.3); Neutrophils % 67.5 % (41.7-73.7); Platelets 188 thou/uL (152-406); RBC Red Blood Cell Count 3.26 M/uL (4.33-5.43); Red Cell Distribution Width 13.4 % (12.1-15.2)
[2024-10-17 12:23] LABS: PT Prothrombin Time 11.8 SECONDS (9.4-12.5); PTT, Activated Partial Thromb 27.5 SECONDS (24.3-36.9); Protime INR 1.06
[2024-10-17 12:38] LABS: ALT/SGPT 90 U/L (16-61); AST/SGOT 164 U/L (15-37); Albumin 4.2 g/dL (3.4-5.0); Albumin/Globulin Ratio 1.2 (1.1-1.8); Alkaline Phosphatase 49 U/L (45-117); Anion Gap 16.4 mEq/L (5.0-15.0); BUN Blood Urea Nitrogen 50 mg/dL (7-18); Bicarbonate 17 mEq/L (21-32); Bilirubin Direct < 0.2 mg/dL (0-0.2); Bilirubin Indirect, Calculated 0.1 mg/dL (0.2-0.8); Bilirubin Total 0.3 mg/dL (0.2-1.0); Globulin 3.5 g/dL (2.3-3.5); Glomerular Filtration Rate 24 ml/min (=/>90); Glucose Level 99 mg/dL (74-106); Lipase 33 U/L (13-75); Magnesium 2.4 mg/dL (1.6-2.4); NT PRO-BNP 153 pg/mL (<125); Potassium 4.4 mEq/L (3.5-5.1); Protein, Total 7.7 g/dL (6.4-8.2); Sodium Level 140 mEq/L (136-145); Troponin High Sensitivity 4.3 pg/mL (<58.9)
--- NOTE | 2024-10-17 13:35 | ER ---
Nurse's Notes [facility] Name: Arden Lux III Age: 64 yrs Sex: Male : 1960 Arrival Date: 10/17/2024 Time: 11:02 Bed 18 Private MD: Diagnosis: Hypotension, unspecified;Alcohol abuse with intoxication;Alcohol abuse;Dehydration;Chronic kidney disease, unspecified;Anemia, unspecified Presentation: 10/17 11:05 Chief complaint: EMS states: DRINKING UNK AMOUNT OF ETOH, H/O ETOHISM, GEN WEAKNESS. bp Coronavirus screen: At this time, the client does not indicate any symptoms associated with coronavirus-19. Ebola Screen: No symptoms or risks identified at this time. Initial Sepsis Screen: Does the patient meet any 2 criteria? No. Patient's initial sepsis screen is negative. Does the patient have a suspected source of infection? No. Patient's initial sepsis screen is negative. Risk Assessment: Do you want to hurt yourself or someone else? Patient reports no desire to harm self or others. Onset of symptoms is unknown. 11:05 Method Of Arrival: EMS: [facility] bp 11:05 Acuity: LILIA 3 bp Triage Assessment: 11:10 General: Appears in no apparent distress. unkempt, Behavior is cooperative, appropriate bp for age, anxious. Pain: Denies pain. EENT: No deficits noted. Neuro: Level of Consciousness is alert, obeys commands, lethargic, Oriented to Appropriate for age. Cardiovascular: Rhythm is sinus rhythm. Respiratory: No deficits noted. GI: No signs and/or symptoms were reported involving the gastrointestinal system. : No signs and/or symptoms were reported regarding the genitourinary system. Derm: No deficits noted. Musculoskeletal: No deficits noted. Historical: - Allergies: 11:10 Sulfa (Sulfonamide Antibiotics); bp - PMHx: 11:10 Anxiety; CVA; GERD; Hepatitis C; High Cholesterol; Hypertension; kidney disease; bp suicidal ideation; - Immunization history:: Adult Immunizations up to date. - Infectious Disease History:: Denies. - Social history:: Smoking status: Patient reports the use of cigarette tobacco products, unknown amount. Screenin:00 [facility] ED Fall Risk Assessment (Adult) History of falling in the last 3 months, bp including since admission No falls in past 3 months (0 pts) Confusion or Disorientation No (0 pts) Intoxicated or Sedated Yes (3 pts) Impaired Gait No (0 pts) Mobility Assist Device Used No (0 pt) Altered Elimination No (0 pt) Score/Fall Risk Level 3 or more points = High Risk Oriented to surroundings, Maintained a safe environment. Abuse screen: Denies threats or abuse. Denies injuries from another. Nutritional screening: No deficits noted. Tuberculosis screening: No symptoms or risk factors identified. Assessment: 11:15 General: Appears in no apparent distress. Smells of alcohol. bp 13:00 Reassessment: Patient appears in no apparent distress at this time. Patient and/or bp family updated on plan of care and expected duration. Pain level reassessed. 14:45 Reassessment: REPORT FAXED FOR RM 222. bp Vital Signs: 11:05 BP 88 / 54; Pulse 80; Resp 16; Temp 98; Pulse Ox 97% ; Weight 68.04 kg; bp 14:00 BP 135 / 85; Pulse 89; Resp 16; Pulse Ox 97% ; bp 15:30 BP 131 / 80; Pulse 91; Resp 15; Pulse Ox 97% ; bp NIH Stroke Scale Scores: 13:26 NIHSS Score: 0 louisa ED Course: 11:05 Patient arrived in ED. bp 11:05 Dale Godoy MD is Attending Physician. louisa 11:10 Triage completed. bp 11:10 Arm band placed on. bp 11:12 Srinivasan Guo, SARAH is Primary Nurse. bp 11:29 CT Head C Spine In Process Unspecified. EDMS 11:29 CT Chest Abdomen Pelvis W/O Contrast In Process Unspecified. EDMS 11:40 XRAY Chest (1 view) In Process Unspecified. EDMS 12:01 Initial lab(s) drawn, by ia, sent to lab. Inserted saline lock: 22 gauge in right bp forearm, using aseptic technique. Blood collected. Flushed with 10 mL NS. 13:00 Patient has correct armband on for positive identification. bp 13:00 No provider procedures requiring assistance completed. bp 13:31 Miguel Ortiz is Hospitalizing Provider. louisa 14:21 CALLED [phone]. eb 16:01 Patient admitted, IV remains in place. bp Administered Medications: 11:58 Drug: Famotidine IVP 20 mg IVP once; dilute with 10 mL 0.9% NaCl; give over 2 minutes bp Route: IVP; Site: right forearm; 16:01 Follow up: Response: No adverse reaction bp 11:59 Drug: foLIC Acid IVPB 1 mg IVPB once Route: IVPB; Site: right forearm; bp 16:01 Follow up: IV Status: Completed infusion bp 12:00 Drug: NS 0.9% IV (30 ml/kg) 30 ml/kg IV at bolus once; Sepsis Protocol; to be given as bp a bolus over 90 minutes Route: IV; Rate: bolus; Site: right forearm; 16:02 Follow up: IV Status: Completed infusion bp 12:00 Drug: Banana Bag - (Multivitamin IV 1 amp, NS 0.9% IV 1000 ml, Thiamine IV 100 mg, bp foLIC Acid IVPB 1 mg) IV at 500 ml/hr once Route: IV; Rate: 500 ml/hr; Site: right forearm; 16:01 Follow up: IV Status: Completed infusion bp 12:00 Drug: Thiamine IV 100 mg IV at bolus once Route: IV; Rate: bolus; Site: right forearm; bp 16:01 Follow up: IV Status: Completed infusion bp Medication: 13:00 VIS not applicable for this client. bp Outcome: 13:34 Decision to Hospitalize by Provider. louisa 16:01 Admitted to Med/surg accompanied by tech, via stretcher, room 222, bp 16:01 Condition: stable 16:01 Instructed on the need for admit, 16:02 Patient left the ED. bp NIH Stroke Scale - NIH Stroke Score Date: 10/17/2024 Time: 13:26 Total Score = 0 10. Dysarthria (speech clarity - read or repeat words) - 0(Normal) 11. Extinction and Inattention (visual/tactile/auditory/spatial/personal) - 0(No abnormality) 1a. Level of Consciousness (LOC) - 0(Alert) 1b. Level of Consciousness (LOC) (Month \T\ Age) - 0(Both) 1c. LOC Commands (Open \T\ Closes Eyes/Molecular Physicist) - 0(Both) 2. Best Gaze (Lateral Gaze Paresis) - 0(Normal) 3. Visual Field Loss - 0(No visual loss) 4. Facial Palsy - 0(Normal) 5a. Left Arm: Motor (10-second hold) - 0(No drift) 5b. Right Arm: Motor (10-second hold) - 0(No drift) 6a. Left Leg: Motor (5-second hold - always test supine) - 0(No drift) 6b. Right Leg: Motor (5-second hold - always test supine) - 0(No drift) 7. Limb Ataxia (finger/nose \T\ heel/ely - test with eyes open) - 0(Absent) 8. Sensory Loss (pinprick arms/legs/face) - 0(Normal) 9. Best Language: Aphasia (description/naming/reading) - 0(No aphasia) Initials: louisa Signatures: Dispatcher [employer] EDLA Dale Godoy MD MD cha Peltier, Brian, RN RN Meghan Rojas Corrections: (The following items were deleted from the chart) 11:12 11:05 BP 88 / 54; Pulse 80bpm; Resp 16bpm; Pulse Ox 97%; Temp 98F; bp bp
--- NOTE | 2024-10-17 13:35 | EDPHYS ---
Physician Documentation [facility] Name: Arden Lux III Age: 64 yrs Sex: Male : 1960 Arrival Date: 10/17/2024 Time: 11:02 Bed 18 Private MD: ED Physician Dale Godoy HPI: 10/17 13:23 This 64 yrs old Male presents to ER via EMS with complaints of ETOH INGESTION.louisa Historical: - Allergies: 11:10 Sulfa (Sulfonamide Antibiotics); bp - PMHx: 11:10 Anxiety; CVA; GERD; Hepatitis C; High Cholesterol; Hypertension; kidney disease; bp suicidal ideation; - Immunization history:: Adult Immunizations up to date. - Infectious Disease History:: Denies. - Social history:: Smoking status: Patient reports the use of cigarette tobacco products, unknown amount. ROS: 13:26 Constitutional: Negative for fever, chills, and weight loss, Eyes: Negative for injury, louisa pain, redness, and discharge, ENT: Negative for injury, pain, and discharge, Neck: Negative for injury, pain, and swelling, Cardiovascular: Negative for chest pain, palpitations, and edema, Respiratory: Negative for shortness of breath, cough, wheezing, and pleuritic chest pain, Abdomen/GI: Negative for abdominal pain, nausea, vomiting, diarrhea, and constipation, Back: Negative for injury and pain, : Negative for injury, bleeding, discharge, and swelling, MS/Extremity: Negative for injury and deformity, Skin: Negative for injury, rash, and discoloration, Psych: Negative for depression, anxiety, suicide ideation, homicidal ideation, and hallucinations, Allergy/Immunology: Negative for hives, rash, and allergies, Endocrine: Negative for neck swelling, polydipsia, polyuria, polyphagia, and marked weight changes, Hematologic/Lymphatic: Negative for swollen nodes, abnormal bleeding, and unusual bruising, 13:26 Neuro: Positive for altered mental status, dizziness, weakness, Exam: 13:26 Constitutional: This is a well developed, well nourished patient who is awake, alert, louisa and in no acute distress. Head/Face: Normocephalic, atraumatic. Eyes: Pupils equal round and reactive to light, extra-ocular motions intact. Lids and lashes normal. Conjunctiva and sclera are non-icteric and not injected. Cornea within normal limits. Periorbital areas with no swelling, redness, or edema. ENT: Nares patent. No nasal discharge, no septal abnormalities noted. Tympanic membranes are normal and external auditory canals are clear. Oropharynx with no redness, swelling, or masses, exudates, or evidence of obstruction, uvula midline. Mucous membranes moist. Neck: Trachea midline, no thyromegaly or masses palpated, and no cervical lymphadenopathy. Supple, full range of motion without nuchal rigidity, or vertebral point tenderness. No Meningismus. Chest/axilla: Normal chest wall appearance and motion. Nontender with no deformity. No lesions are appreciated. Cardiovascular: Regular rate and rhythm with a normal S1 and S2. No gallops, murmurs, or rubs. Normal PMI, no JVD. No pulse deficits. Respiratory: Lungs have equal breath sounds bilaterally, clear to auscultation and percussion. No rales, rhonchi or wheezes noted. No increased work of breathing, no retractions or nasal flaring. Abdomen/GI: Soft, non-tender, with normal bowel sounds. No distension or tympany. No guarding or rebound. No evidence of tenderness throughout. Back: No spinal tenderness. No costovertebral tenderness. Full range of motion. Male : Normal genitalia with no discharge or lesions. Skin: Warm, dry with normal turgor. Normal color with no rashes, no lesions, and no evidence of cellulitis. Psych: Awake, alert, with orientation to person, place and time. Behavior, mood, and affect are within normal limits. 13:26 ECG was reviewed by the Attending Physician. 13:26 Musculoskeletal/extremity: ROM: no acute changes, intact in all extremities, full active range of motion, full passive range of motion, Circulation is intact in all extremities. Sensation intact. Compartment Syndrome exam of affected extremity: is normal. DVT Exam: No signs of deep vein thrombosis. no pain, no swelling, no tenderness, negative Homans' sign noted on exam, no appreciated bluish discoloration, no erythema, no increased warmth, 13:26 Neuro: Orientation: is normal, appropriate for stated age, no acute changes, Mentation: is normal, appropriate for stated age, no acute changes, Memory: no acute changes, Cranial nerves: grossly normal, is grossly normal based on the patient's age, no acute changes, Cerebellar function: no acute changes, Motor: is normal, Sensation: is normal, no obvious gross deficits, appropriate no acute changes, Gait: not tested. Deep tendon reflexes are 1 (trace) + in the bilateral brachioradialis, bicep, tricep and patellar and Achilles tendons, Babinski testing is normal, seizure activity, is not displayed by the patient, Vital Signs: 11:05 BP 88 / 54; Pulse 80; Resp 16; Temp 98; Pulse Ox 97% ; Weight 68.04 kg; bp 14:00 BP 135 / 85; Pulse 89; Resp 16; Pulse Ox 97% ; bp 15:30 BP 131 / 80; Pulse 91; Resp 15; Pulse Ox 97% ; bp NIH Stroke Scale Scores: 13:26 NIHSS Score: 0 louisa MDM: 11:05 Medical Screening Exam initiated louisa 13:29 Differential diagnosis: Ingestion/exposure to alcohol. Differential Diagnosis altered louisa mental status, sepsis, flu. Differential Diagnosis: CVA, electrolyte abnormality, alcohol intoxication, hypoglycemia, intracranial bleed, meningitis, overdose, pneumonia, seizure, sepsis, TIA, UTI, volume depletion, cardiac arrhythmia, CVA, generalized weakness, GI bleed, hyperventilation, hypovolemia, idiopathic dizziness, near-syncope, sepsis, syncope, TIA, vertigo. Data reviewed: vital signs, nurses notes, lab test result(s), EKG, radiologic studies, CT scan, plain films. Consideration of Admission/Observation Patient was admitted/placed on observation. Escalation of care including admission/observation considered. I considered the following discharge prescriptions or medication management in the emergency department Medications were administered in the Emergency Department. See MAR. Independent interpretation of the following test(s) in the Emergency Department EKG: See my EKG interpretation above. Test considered but Not performed: MRI: no mri brain. Counseling: I had a detailed discussion with the patient and/or guardian regarding the historical points, exam findings, and any diagnostic results supporting the discharge/admit diagnosis, lab results, radiology results, the need for further work-up and treatment in the hospital. 10/17 11:11 Order name: Basic Metabolic Panel; Complete Time: 13:12 [facility] 10/17 11:11 Order name: CBC with Diff; Complete Time: 13:12 [facility] 10/17 11:11 Order name: LFT's; Complete Time: 13:12 [facility] 10/17 11:11 Order name: Magnesium; Complete Time: 13:12 [facility] 10/17 11:11 Order name: NT PRO-BNP; Complete Time: 13:12 [facility] 10/17 11:11 Order name: PT-INR; Complete Time: 13:13 [facility] 10/17 11:11 Order name: Troponin HS; Complete Time: 13:13 [facility] 10/17 11:11 Order name: Lipase; Complete Time: 13:13 [facility] 10/17 11:11 Order name: Acetaminophen; Complete Time: 13:12 [facility] 10/17 11:11 Order name: ETOH Level; Complete Time: 13:12 [facility] 10/17 11:11 Order name: Ptt, Activated; Complete Time: 13:13 [facility] 10/17 11:11 Order name: Salicylate; Complete Time: 13:13 [facility] 10/17 11:11 Order name: Urinalysis w/ reflexes [facility] 10/17 11:11 Order name: Urine Drug Screen 10/17 13:38 Order name: CPK la1 10/17 11:11 Order name: XRAY Chest (1 view); Complete Time: 12:11 [facility] 10/17 11:11 Order name: CT Head C Spine; Complete Time: 12:11 [facility] 10/17 11:11 Order name: CT Chest Abdomen Pelvis W/O Contrast; Complete Time: 13:13 [facility] 10/17 11:11 Order name: EKG; Complete Time: 11:12 [facility] 10/17 11:11 Order name: Cardiac monitoring; Complete Time: 11:13 [facility] 10/17 11:11 Order name: EKG - Nurse/Tech; Complete Time: 11:13 [facility] 10/17 11:11 Order name: IV Saline Lock; Complete Time: 12:01 [facility] 10/17 11:11 Order name: Labs collected and sent; Complete Time: 12:01 [facility] 10/17 11:11 Order name: O2 Per Protocol; Complete Time: 11:13 [facility] 10/17 11:11 Order name: O2 Sat Monitoring; Complete Time: 11:13 [facility] 10/17 11:11 Order name: Suicide Screening ([place]); Complete Time: 11:39 [facility] EC: Rate is 76 beats/min. Rhythm is regular. QRS [place] is Normal. [place] interval is normal. QRS louisa interval is normal. QT interval is normal. No Q waves. T waves are Normal. No ST changes noted. Clinical impression: NSR w/ Non-specific ST/T Changes and No evidence of ischemia. Interpreted by me. Reviewed by me. Administered Medications: 11:58 Drug: Famotidine IVP 20 mg IVP once; dilute with 10 mL 0.9% NaCl; give over 2 minutes bp Route: IVP; Site: right forearm; 16:01 Follow up: Response: No adverse reaction bp 11:59 Drug: foLIC Acid IVPB 1 mg IVPB once Route: IVPB; Site: right forearm; bp 16:01 Follow up: IV Status: Completed infusion bp 12:00 Drug: NS 0.9% IV (30 ml/kg) 30 ml/kg IV at bolus once; Sepsis Protocol; to be given as bp a bolus over 90 minutes Route: IV; Rate: bolus; Site: right forearm; 16:02 Follow up: IV Status: Completed infusion bp 12:00 Drug: Banana Bag - (Multivitamin IV 1 amp, NS 0.9% IV 1000 ml, Thiamine IV 100 mg, bp foLIC Acid IVPB 1 mg) IV at 500 ml/hr once Route: IV; Rate: 500 ml/hr; Site: right forearm; 16:01 Follow up: IV Status: Completed infusion bp 12:00 Drug: Thiamine IV 100 mg IV at bolus once Route: IV; Rate: bolus; Site: right forearm; bp 16:01 Follow up: IV Status: Completed infusion bp Disposition Summary: 10/17/24 13:34 Hospitalization Ordered Notes: Hospitalization Status: Inpatient Admission louisa Provider: Miguel Ortiz cha Location: Telemetry/MedSurg (Inpatient) louisa Condition: Fair louisa Problem: new louisa Symptoms: have improved louisa Bed/Room Type: Standard louisa Room Assignment: 222(10/17/24 14:28) eb Diagnosis - Hypotension, unspecified louisa - Alcohol abuse with intoxication louisa - Alcohol abuse louisa - Dehydration louisa - Chronic kidney disease, unspecified louisa - Anemia, unspecified louisa Forms: - Medication Reconciliation Form louisa - SBAR form louisa - Leadership Thank You Letter [facility] NIH Stroke Scale - NIH Stroke Score Date: 10/17/2024 Time: 13:26 Total Score = 0 10. Dysarthria (speech clarity - read or repeat words) - 0(Normal) 11. Extinction and Inattention (visual/tactile/auditory/spatial/personal) - 0(No abnormality) 1a. Level of Consciousness (LOC) - 0(Alert) 1b. Level of Consciousness (LOC) (Month \T\ Age) - 0(Both) 1c. LOC Commands (Open \T\ Closes Eyes/Senior Interactive Developer) - 0(Both) 2. Best Gaze (Lateral Gaze Paresis) - 0(Normal) 3. Visual Field Loss - 0(No visual loss) 4. Facial Palsy - 0(Normal) 5a. Left Arm: Motor (10-second hold) - 0(No drift) 5b. Right Arm: Motor (10-second hold) - 0(No drift) 6a. Left Leg: Motor (5-second hold - always test supine) - 0(No drift) 6b. Right Leg: Motor (5-second hold - always test supine) - 0(No drift) 7. Limb Ataxia (finger/nose \T\ heel/ely - test with eyes open) - 0(Absent) 8. Sensory Loss (pinprick arms/legs/face) - 0(Normal) 9. Best Language: Aphasia (description/naming/reading) - 0(No aphasia) Initials: louisa Signatures: Dispatcher [employer] EDMS Dale Godoy MD MD cha Peltier, Brian, RN RN Meghan Rojas Corrections: (The following items were deleted from the chart) 11:12 11:12 BASIC METABOLIC PANEL+C.LAB.BRZ ordered. EDMS EDMS 11:12 11:12 CBC+H.LAB.BRZ ordered. EDMS EDMS 11:12 11:12 HEPATIC FUNCTION+C.LAB.BRZ ordered. EDMS EDMS 11:12 11:12 MAGNESIUM+C.LAB.BRZ ordered. EDMS EDMS 11:12 11:12 PROBNP+C.LAB.BRZ ordered. EDMS EDMS 11:12 11:12 PROTIME (+INR)+COAG.LAB.BRZ ordered. EDMS EDMS 11:12 11:12 Troponin High Sensitivity+C.LAB.BRZ ordered. EDMS EDMS 11:12 11:12 LIPASE+C.LAB.BRZ ordered. EDMS EDMS 11:12 11:12 ACETAMINOPHEN+C.LAB.BRZ ordered. EDMS EDMS 11:12 11:12 ETHANOL+C.LAB.BRZ ordered. EDMS EDMS 11:12 11:12 PTT, ACTIVATED+COAG.LAB.BRZ ordered. EDMS EDMS 11: 11:12 SALICYLATE+C.LAB.BRZ ordered. EDMS EDMS : 11:12 Urinalysis+U.LAB.BRZ ordered. EDMS EDMS 11: 11:12 URINE DRUG SCREEN+UC.LAB.BRZ ordered. EDMS EDMS 14:28 13:34 louisa eb
[2024-10-17] MEDS ORDERED: HYDROCODONE/APAP 5/325 MG TAB PO PRN (15:42)
[2024-10-17] MEDS ORDERED: LORazepam 2 MG/ML VIAL IV PRN (15:42)
[2024-10-17] MEDS ORDERED: ONDANSETRON 4 MG/2 ML VIAL IV PRN (15:42)
[2024-10-17] MEDS: NA CHLORIDE 0.9% 1,000 ML IV SCH (16:03)
[2024-10-17 16:18] VITALS: BMI 24.2
--- NOTE | 2024-10-17 17:00 | P.HP ---
Certification for Inpatient Patient admitted to: Observation With expected LOS: <2 Midnights Patient will require the following post-hospital care: None Practitioner: I am a practitioner with admitting privileges, knowledge of patient current condition, hospital course, and medical plan of care. Services: Services provided to patient in accordance with Admission requirements found in Title 42 Section 412.3 of the Code of Federal Regulations Patient History Date of Service: 10/17/24 Reason for admission: EVELIA, weakness History of Present Illness: 64-year-old male with history of hypertension, chronic alcohol abuse/drug abuse, history of hepatitis C presents the emergency department chief complaint of chest pain, abdominal pain, weakness. He reports he has been drinking for the last 40 years or so chronically, today he began having chest pain, abdominal pain, foot pain and was unable to stand up having significant weakness. He was evaluated today in the emergency department his labs are significant for an acute kidney injury with a creatinine of 2.8 hemoglobin 10.9 platelet count 188 AST 164 ALT 90 T. bili 0.3 CPK is currently pending CT chest abdomen pelvis negative for acute findings as well as CT head/C-spine. Initial high sensitive troponin negative. ED provider wishes to admit patient under observation for EVELIA, weakness, alcohol intoxication Allergies Sulfa (Sulfonamide Antibiotics) Allergy (Verified 04/26/23 20:57) unknown Home Medications: Aspirin Chewable [Aspirin Chewable*] 81 mg PO DAILY 04/26/23 Fluoxetine HCl [Prozac] 40 mg PO DAILY 04/26/23 Lisinopril [Zestril] 10 mg PO DAILY 04/26/23 Pantoprazole [Protonix Tab*] 40 mg PO DAILY 04/26/23 Simvastatin [Zocor] 40 mg PO BEDTIME 12/23/23 - Past Medical/Surgical History Has patient received pneumonia vaccine in the past: No Diabetic: No -: Hypertension -: History of CVA -: Hyperlipidemia -: Erosive gastritis -: Abdominal aortic aneurysm -: Enlarged prostate -: Alcohol abuse -: Tobacco abuse -: Cocaine abuse Psychosocial/ Personal History: Patient is - Family History Father -: Heart disease Sister -: Diabetes - Social History Smoking Status: Current every day smoker Alcohol use: Yes CD- Drugs: Yes Caffeine use: No Place of Residence: Home Review of Systems 10-point ROS is otherwise unremarkable General: Weakness, Malaise Cardiovascular: Chest Pain Gastrointestinal: Abdominal Pain Physical Examination - Vital Signs Temperature: 97.7 F Blood Pressure: 141/82 Pulse: 93 Respirations: 16 Pulse Ox (%): 100 - Physical Exam General: Alert, In no apparent distress, Oriented x3 HEENT: Atraumatic, PERRLA, Mucous membr. moist/pink, EOMI, Sclerae nonicteric Neck: Supple, 2+ carotid pulse no bruit, No LAD, Without JVD or thyroid abnormality Respiratory: Clear to auscultation bilaterally, Normal air movement Cardiovascular: Regular rate/rhythm, Normal S1 S2 Gastrointestinal: Normal bowel sounds, No tenderness Musculoskeletal: No tenderness Integumentary: No rashes Neurological: Normal speech, Normal strength at 5/5 x4 extr, Normal tone, Normal affect - Studies Laboratory Data (last 24 hrs) 10/17/24 10/17/24 10/17/24 11:58 11:58 11:58 WBC 8.50 Hgb 10.9 L Hct 32.2 L Plt Count 188 PT 11.8 INR 1.06 APTT 27.5 Sodium 140 Potassium 4.4 BUN 50 H Creatinine 2.80 H Glucose 99 Magnesium 2.4 Total Bilirubin 0.3 AST 164 H ALT 90 H Alkaline Phosphatase 49 Lipase 33 Assessment and Plan - Plan Assessment: Acute kidney injury Alcohol intoxication Chest pain rule out ACS Hypertension Chronic hepatitis C Plan: Acute kidney injury IV fluids overnight Avoid NSAIDs Repeat chemistry in the morning Consider nephrology consult if there is no improvement/worsening CT chest on pelvis negative for acute findings/no hydronephrosis noted Alcohol intoxication Daily drinker for around 40 years Alcohol withdrawal assessments in place as well as as needed Ativan Folic acid, thiamine supplementation Chest pain rule out ACS Trend troponins overnight, monitor on telemetry Hypertension Continue home medications when verified Chronic hepatitis C Patient reports completing treatment for hepatitis C outpatient DVT PPX: Heparin subcu Code status: Full Discharge Plan: Home Plan to discharge in: 24 Hours - Advance Directives Does patient have a Living Will: No Does patient have a Durable POA for Healthcare: No - Code Status/Comfort Care Code Status Assessed: Yes (Full code) Critical Care: No Time Spent Managing Pts Care (In Minutes): 56
[2024-10-17 18:22] VITALS: O2SAT 97
[2024-10-17] MEDS: HEPARIN 5000 UNIT/ML 1 ML VIAL SQ SCH (20:13)
[2024-10-17 22:38] LABS: Specific Gravity 1.014 (1.005-1.030); Sqamous Epithelial None Seen /HPF (None Seen); Urine Bacteria None Seen /HPF (<20); Urine Bilirubin NEGATIVE (Negative); Urine Blood Negative (Negative); Urine Clarity Clear (Clear); Urine Color Light-Yellow (Yellow); Urine Culture Reflex Order NOT NEEDED; Urine Glucose NEGATIVE (Negative); Urine Ketones NEGATIVE (Negative); Urine Microscopic Reflex YN ORDER UMIC; Urine Mucus Slight /HPF (None Seen); Urine Nitrite NEGATIVE (Negative); Urine Protein NEGATIVE (Negative); Urine RBC <5 /HPF (None Seen); Urine Urobilinogen Normal (Normal); Urine WBC <5 /HPF (<5); Urine pH 5.5 (5.0-7.0)
[2024-10-17 22:41] LABS: Barbiturates NEGATIVE (NEGATIVE); Benzodiazepines NEGATIVE (NEGATIVE); Cocaine POSITIVE (NEGATIVE); METHAMPHETAM NEGATIVE (NEGATIVE); Methadone NEGATIVE (NEGATIVE); Opiates NEGATIVE (NEGATIVE); Phencyclidine NEGATIVE (NEGATIVE); THC Cannibis NEGATIVE (NEGATIVE)
[2024-10-18 05:25] LABS: Absolute Eosinophils 0.3 K/uL (0-0.5); Absolute Lymphocytes (CBC) 1.9 K/uL (0.7-4.9); Absolute Monocytes 0.6 K/uL (0.1-1.3); Absolute Neutrophil 2.7 K/uL (1.8-8.0); Basophils % 0.9 % (0-1.3); Eosinophils % 5.4 % (0-4.4); Hematocrit 26.8 % (39.6-49.0); Hemoglobin 9.1 g/dL (13.6-17.9); Lymphocytes % 34.5 % (15.3-44.8); MCH 33.3 pg (27.0-35.0); MPV 8.4 fL (7.6-11.3); Neutrophils % 49.2 % (41.7-73.7); Platelets 137 thou/uL (152-406); RBC Red Blood Cell Count 2.73 M/uL (4.33-5.43); Red Cell Distribution Width 13.3 % (12.1-15.2)
[2024-10-18 05:47] LABS: Albumin 3.3 g/dL (3.4-5.0); Albumin/Globulin Ratio 1.1 (1.1-1.8); Bilirubin Total 0.4 mg/dL (0.2-1.0); Globulin 2.9 g/dL (2.3-3.5); Magnesium 1.9 mg/dL (1.6-2.4); Phosphorus 2.5 mg/dL (2.5-4.9); Protein, Total 6.2 g/dL (6.4-8.2); Troponin High Sensitivity 7.3 pg/mL (<58.9)
[2024-10-18] MEDS: FLUOXETINE 20 MG CAP PO SCH (08:37)
[2024-10-18] MEDS: PANTOPRAZOLE 40MG TABLET PO SCH (08:37)
[2024-10-18] MEDS: lisinopriL 10 MG TAB PO SCH (08:37)
[2024-10-18] MEDS: ASPIRIN 81 MG CHEWABLE TABLET PO SCH (08:37)
[2024-10-18] MEDS: THIAMINE HCL 100 MG TABLET PO SCH (08:37)
[2024-10-18] MEDS: FOLIC ACID 1 MG TABLET PO SCH (08:38)
--- NOTE | 2024-10-18 08:47 | P.DS ---
Admission Date: 10/17/24 Discharge Date: 10/18/24 Disposition: ROUTINE DISCHARGE Discharge Condition: GOOD Reason for Admission: EVELIA, weakness Brief History of Present Illness: 64-year-old male with history of hypertension, chronic alcohol abuse/drug abuse, history of hepatitis C presents the emergency department chief complaint of chest pain, abdominal pain, weakness. He reports he has been drinking for the last 40 years or so chronically, today he began having chest pain, abdominal pain, foot pain and was unable to stand up having significant weakness. He was evaluated today in the emergency department his labs are significant for an acute kidney injury with a creatinine of 2.8 hemoglobin 10.9 platelet count 188 AST 164 ALT 90 T. bili 0.3 CPK is currently pending CT chest abdomen pelvis negative for acute findings as well as CT head/C-spine. Initial high sensitive troponin negative. ED provider wishes to admit patient under observation for EVELIA, weakness, alcohol intoxication Hospital Course: Assessment: Acute kidney injury Alcohol intoxication Chest pain rule out ACS Hypertension Chronic hepatitis C Patient was admitted to the hospital under observation for acute kidney injury, alcohol intoxication/weakness. On admission his creatinine was 2.8, bicarb was 17, EtOH level was 159. He also complained of chest pain, abdominal pain, leg pain. CT chest abdomen pelvis was performed which was negative for acute findings, troponin was trended overnight and negative x 3. He refused telemetry monitoring. He is given IV fluids overnight and his creatinine has improved close to his baseline, currently is 1.6. He is stable for discharge and outpatient follow-up at this time. Please follow-up with your primary care doctor in 1 to 2 weeks for repeat blood workBMP to check kidney function Vital Signs/Physical Exam: Temp Pulse Resp BP Pulse Ox 98.2 F 82 16 164/76 H 97 10/18/24 04:00 10/18/24 04:00 10/18/24 04:00 10/18/24 04:00 10/18/24 04:00 General: Alert, In no apparent distress, Oriented x3 HEENT: Atraumatic, PERRLA Neck: Supple, JVD not distended Respiratory: Clear to auscultation bilaterally, Normal air movement Cardiovascular: Regular rate/rhythm, Normal S1 S2 Gastrointestinal: Normal bowel sounds, No tenderness Musculoskeletal: No tenderness Integumentary: No rashes Neurological: Normal speech, Normal affect Laboratory Data at Discharge: WBC 5.60 thou/uL (4.3-10.9) 10/18/24 05:07 Hgb 9.1 g/dL (13.6-17.9) L D 10/18/24 05:07 Hct 26.8 % (39.6-49.0) L 10/18/24 05:07 Plt Count 137 thou/uL (152-406) L D 10/18/24 05:07 PT 11.8 SECONDS (9.4-12.5) 10/17/24 11:58 INR 1.06 10/17/24 11:58 APTT 27.5 SECONDS (24.3-36.9) 10/17/24 11:58 Sodium 140 mEq/L (136-145) 10/18/24 05:07 Potassium 4.0 mEq/L (3.5-5.1) 10/18/24 05:07 BUN 33 mg/dL (7-18) H 10/18/24 05:07 Creatinine 1.60 mg/dL (0.70-1.30) H 10/18/24 05:07 Glucose 102 mg/dL (74-106) 10/18/24 05:07 Phosphorus 2.5 mg/dL (2.5-4.9) 10/18/24 05:07 Magnesium 1.9 mg/dL (1.6-2.4) 10/18/24 05:07 Total Bilirubin 0.4 mg/dL (0.2-1.0) 10/18/24 05:07 AST 53 U/L (15-37) H 10/18/24 05:07 ALT 58 U/L (16-61) 10/18/24 05:07 Alkaline Phosphatase 46 U/L (45-117) 10/18/24 05:07 Lipase 33 U/L (13-75) 10/17/24 11:58 Home Medications: Aspirin Chewable [Aspirin Chewable*] 81 mg PO DAILY 04/26/23 Fluoxetine HCl [Prozac] 40 mg PO DAILY 04/26/23 Lisinopril [Zestril] 10 mg PO DAILY 04/26/23 Pantoprazole [Protonix Tab*] 40 mg PO DAILY 04/26/23 Simvastatin [Zocor] 40 mg PO BEDTIME 12/23/23 Physician Discharge Instructions: Patient was admitted to the hospital under observation for acute kidney injury, alcohol intoxication/weakness. On admission his creatinine was 2.8, bicarb was 17, EtOH level was 159. He also complained of chest pain, abdominal pain, leg pain. CT chest abdomen pelvis was performed which was negative for acute findin gs, troponin was trended overnight and negative x 3. He refused telemetry monitoring. He is given IV fluids overnight and his creatinine has improved close to his baseline, currently is 1.6. He is stable for discharge and outpatient follow-up at this time. Please follow-up with your primary care doctor in 1 to 2 weeks for repeat blood workBMP to check kidney function Diet: Regular Activity: Fall precautions Followup: Aureliano Ovalles MD [Primary Care Provider] - Time spent managing pt's care (in minutes): 37
[2024-10-18 09:40] VITALS: BP 155/80; TEMP 97.9
[2024-10-18] MEDS ORDERED: ATORVASTATIN 20 MG TAB PO SCH (21:00)
--- NOTE | 2024-10-21 14:19 | EKG ---
Test Date: 2024-10-17 Test Time: 11:17:11 Sas Clinical Programmer: AM MEASUREMENT RESULTS: Intervals: Rate: 76 NH: 162 QRSD: 84 QT: 398 QTc: 447 [place]: P: 141 NH: 162 QRS: 40 T: 89 INTERPRETIVE STATEMENTS: Unusual P axis, possible ectopic atrial rhythm Low voltage QRS Abnormal ECG Compared to ECG 12/23/2023 02:03:00 Low QRS voltage now present Sinus rhythm no longer present Prolonged QT interval no longer present Electronically Signed On 10-21-24 14:15:47 PARTITION NOTCHER by Kale Sigala
== END 2024-10-18 11:09 | disposition home or self-care (01) ==
LOC: ER 11:02 → ERHOLD 14:21 → 2ND 15:14
PROVIDERS: ADMIT Internal Medicine; ATTEND Internal Medicine
DX: E86.0 Dehydration (principal); N18.9 Chronic kidney disease, unspecified; N17.9 Acute kidney failure, unspecified; R53.1 Weakness; D64.9 Anemia, unspecified; I95.9 Hypotension, unspecified; I10 Essential (primary) hypertension; F10.129 Alcohol abuse with intoxication, unspecified; F14.90 Cocaine use, unspecified, uncomplicated; F17.210 Nicotine dependence, cigarettes, uncomplicated; B18.2 Chronic viral hepatitis C; R07.9 Chest pain, unspecified; R10.9 Unspecified abdominal pain; M79.606 Pain in leg, unspecified; Z88.2 Allergy status to sulfonamides; Z86.73 Personal history of transient ischemic attack (TIA), and cerebral infarction without residual deficits
CPT/HCPCS: 96365; 96367; 93005; 85025 ×2; 81001; 80048; 36415; 83735 ×2; 82550; 84100; 85610; 80076; 85730; 84484 ×3; 83690; 80053; 83880; 80307; 70450; 71250; 72125; 74176; 71045; 96375; 99285; 80143; 80179; 82077; J3411 ×2; J1644 ×2; J7030 ×4; G0378

== ENCOUNTER 2024-10-22 10:34 | Observation (INO) | payer MEDICARE ==
--- OUTSIDE RECORDS SUMMARY | 2024-10-22 10:38 | XMS REPORT | Continuity of Care Document ---
Author Name Unknown Address [address] [place] [address] [facility] thconnect Address [address] [place] [address] Care Team Providers Care Cro Name Role Phone Treovr Morris Attending Clinician Dania Loaiza Attending Clinician Josse_Jodee Attending Clinician Unavailable Rafael-Mbayo_A_AH Attending Clinician Unavailable Ogbechiagustín_Jodee Admitting Clinician Unavailable Rafael-Mbayo_A_AH Admitting Clinician Unavailable Payers Payer Name Policy Type Policy Number Effective Date Expirati on Date Source [facility] [facility] (MEDICARE REPLACEMENT HMO) [id number] 2020 00:00:00 [facility] ([facility]PLAC[facility]/[place] [employer] - HMO) [id number] 2019 00:00:00 Allergies, Adverse Reactions, Alerts Allergy Name Allergy Type Status Severity Reaction(s) Onset Date Inactive Date Treating Clinician Comments Source Sulfa Antibiot ics Drug Allergy Active [facility] Medications Ordered Medication Name Filled Medication Name Start Date Stop Date Current Medication? Ordering Clinician Indication Dosage Frequency Signature (SIG) Comments Components Source simvastatin 40 mg tablet simvastatin 40 mg tablet Yes [facility] pantoprazol e sodium [address] pantoprazol e sodium [address] Yes [facility] fluoxetine hcl 40 mg capsule fluoxetine hcl 40 mg capsule Yes [facility] lisinopril 10 mg tablet lisinopril 10 mg tablet Yes [facility] Encounters Start Date/Time End Date/Time Encounter Type Admission Type Attending Clinicians Care Facility Care Department Encounter ID Source 2024-06-21 15:00:00 2024-06-21 15:30:00 [facility] Refill Trevor Morris [id number] [facility] 2023-11-01 21:45:00 2023-11-01 22:05:00 [facility] CASE MANAGER Panel-dire cted Gap Closure Dania Hargrovebalwinder [id number]. [id number]. [id number] [facility] 2023-08-02 17:10:00 2023-08-02 17:30:00 Care OnDemand - Gap Closure Dania Hargrovegarfieldabel [id number]. [id number]. [id number] [facility] 2023-06-15 16:30:00 2023-06-15 17:30:00 CAV Dania Loaiza [id number]. [id number]. [id number] [facility] 2023-06-01 00:00:00 2023-06-01 00:00:00 Outpatient Ogbechie_L DMG DMG [id number] [facility] 2023-06-01 00:00:00 2023-06-01 00:00:00 Outpatient Ogbechie_L DMG DMG [id number] [facility] 2022-06-04 03:40:00 2022-06-04 03:40:00 Outpatient DMG DMG [id number] [facility] 2022-06-04 00:00:00 2022-06-04 00:00:00 Outpatient DMG DMG [id number] [facility] 2021-12-14 08:00:00 2021-12-14 08:00:00 Outpatient DMG DMG [id number] [facility] 2021-12-04 09:00:00 2021-12-04 09:00:00 Outpatient DMG [facility] [id number] [facility] 2021-03-18 04:31:00 2021-03-18 04:31:00 Outpatient Rafael-Mbayo _A_AH VFP VFP [id number] [facility] 2020-01-17 04:19:00 2020-01-17 04:19:00 Outpatient Rafael-Mbayo _A_AH VFP VFP [id number] [facility] 2020-01-17 04:19:00 2020-01-17 04:19:00 Outpatient Rafael-Mbayo _A_AH VFP VFP [id number] [facility] 2020-01-17 04:19:00 2020-01-17 04:19:00 Outpatient Rafael-Mbayo _A_AH VFP VFP [id number] [facility] 2020-01-17 04:19:00 2020-01-17 04:19:00 Outpatient Rafael-Mbayo _A_AH VFP VFP [id number] [facility] 2020-01-17 04:19:00 2020-01-17 04:19:00 Outpatient Rafael-Mbayo _A_AH VFP VFP [id number] [facility] Notes Date/Time Note Provider Source 2024-06-21 15:00:00 ASSESSMENT SUMMARY LORETO LANG III is a 64 year old man seen today by [facility] for a [facility] Visit. [facility] OnDemand Visits are designed to target a specific urgent or non-urgent clinical concern. See below for teaching and instruction given regarding specific diagnoses. Member verbalized understanding to all. Members Preferred Language Brazilian Patient Currently Located in their home state of [place], YES DIAGNOSIS [id number] - Essential (primary) [id number] - Hyperlipidemia, crxkklztrimL87.9 - Anxiety disorder, miedlsbxdyvH44.1 - Encounter for screening for diabetes mellitus HISTORY OF PRESENT ILLNESS History of Present Illness: 64 yo M referred for OD visit from [facility] team for medication refills. Recommended medication refills: magii scheduled, refill assistance LISINOPRIL TAB 10MG , #90 1 tablet daily member's number [facility] pharmacy [phone] He is also requesting a refill of [...] Recent labs: no labs available Pharmacy: - [facility] [id number] [facility] [phone] Recent Labs: There are no labs in [...]
--- NOTE | 2024-10-22 11:06 | RAD REPORT ---
EXAMINATION: CT HEAD WITHOUT CONTRAST CT CERVICAL SPINE WITHOUT CONTRAST CLINICAL INDICATION: Head and neck injury status post fall. Head and neck pain. Syncope TECHNIQUE: Axial CT images from the skull base to the vertex without intravenous contrast. Axial CT i mages through the cervical spine were obtained without intravenous contrast. Sagittal and coronal reformatted images were created from the data set. Coronal and sagittal reformatted images were creat ed from the data set. One or more of the following dose reduction techniques were used: Automated exposure control, adjustment of the mA and/or kV according to patient size, and/or iterative reconstr uction. Unless otherwise specified, incidental findings do not require dedicated imaging follow-up. [id number]. Comparison: September 2024 FINDINGS: An intracranial bleed is not seen. Ventricles are normal in caliber. Low-density left cerebellum probably an old infarction. Mild to moderate low-density paraventricular, deep and subcortical white matter probably ischemic changes secondary to small vessel disease No extra-axial fluid collection. No fluid within the sinuses/mastoids No fracture or dislocation is seen involving the cervical spine. Spondylosis mid and distal cervical spine. Slight chronic anterior subluxation C7 on T1 IMPRESSION: No acute intracranial abnormality noted A cervical fracture is not seen. 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
[2024-10-22 11:09] LABS: Absolute Basophils 0.1 K/uL (0-0.5); Absolute Eosinophils 0.4 K/uL (0-0.5); Absolute Lymphocytes (CBC) 2.9 K/uL (0.7-4.9); Absolute Monocytes 0.6 K/uL (0.1-1.3); Basophils % 0.9 % (0-1.3); Eosinophils % 6.3 % (0-4.4); Hematocrit 28.1 % (39.6-49.0); Hemoglobin 9.6 g/dL (13.6-17.9); Lymphocytes % 40.9 % (15.3-44.8); MCH 33.4 pg (27.0-35.0); MCV 98.3 fL (80-100); MPV 8.1 fL (7.6-11.3); Monocytes % 8.9 % (3.3-12.3); Platelets 163 thou/uL (152-406); RBC Red Blood Cell Count 2.86 M/uL (4.33-5.43); Red Cell Distribution Width 13.2 % (12.1-15.2)
[2024-10-22 11:15] LABS: PT Prothrombin Time 13.2 SECONDS (9.4-12.5); PTT, Activated Partial Thromb 26.6 SECONDS (24.3-36.9); Protime INR 1.18
--- NOTE | 2024-10-22 11:16 | RAD REPORT ---
Procedure: Chest Single View HISTORY: Hypotension. Syncope COMPARISON: September 2024 FINDINGS: The lungs appear clear of acute infiltrate. No significant pleural effusion noted. The heart is mildly enlarged. IMPRESSION: No acute abnormality is displayed.
[2024-10-22 11:32] LABS: ALT/SGPT 61 U/L (16-61); AST/SGOT 81 U/L (15-37); Albumin 3.7 g/dL (3.4-5.0); Albumin/Globulin Ratio 1.2 (1.1-1.8); Alkaline Phosphatase 45 U/L (45-117); Anion Gap 11.9 mEq/L (5.0-15.0); BUN Blood Urea Nitrogen 29 mg/dL (7-18); Bicarbonate 20 mEq/L (21-32); Bilirubin Total 0.3 mg/dL (0.2-1.0); Glomerular Filtration Rate 34 ml/min (=/>90); Glucose Level 98 mg/dL (74-106); Potassium 3.9 mEq/L (3.5-5.1); Protein, Total 6.7 g/dL (6.4-8.2); Sodium Level 142 mEq/L (136-145); Troponin High Sensitivity 5.1 pg/mL (<58.9)
[2024-10-22 11:34] LABS: Bilirubin Direct < 0.2 mg/dL (0-0.2); Bilirubin Indirect, Calculated 0.1 mg/dL (0.2-0.8)
--- NOTE | 2024-10-22 11:49 | ER ---
Nurse's Notes [facility] Name: Arden Lux III Age: 64 yrs Sex: Male : 1960 Arrival Date: 10/22/2024 Time: 10:34 Bed 5 Private MD: Diagnosis: Hypotension, unspecified;Alcohol abuse with intoxication;Syncope Presentation: 10/22 10:35 Chief complaint: EMS states: NEAR SYNCOPE AND HYPOTENSION AT BANK. Coronavirus screen: bp At this time, the client does not indicate any symptoms associated with coronavirus-19. Ebola Screen: No symptoms or risks identified at this time. Initial Sepsis Screen: Does the patient meet any 2 criteria? No. Patient's initial sepsis screen is negative. Does the patient have a suspected source of infection? No. Patient's initial sepsis screen is negative. Risk Assessment: Do you want to hurt yourself or someone else? Patient reports no desire to harm self or others. Note SEEN FOR SAME S/S IN PAST. Onset of symptoms is unknown. 10:35 Method Of Arrival: EMS: [facility] bp 10:35 Acuity: LILIA 3 bp Triage Assessment: 10:35 General: Appears in no apparent distress. Behavior is cooperative, appropriate for age, bp anxious. Pain: Denies pain. EENT: No deficits noted. Neuro: Reports a syncopal episode. Cardiovascular: No deficits noted. Respiratory: No deficits noted. GI: No signs and/or symptoms were reported involving the gastrointestinal system. : No signs and/or symptoms were reported regarding the genitourinary system. Derm: No deficits noted. Musculoskeletal: No deficits noted. Historical: - Allergies: 10:44 Sulfa (Sulfonamide Antibiotics); bp - Home Meds: 10:44 aspirin 81 mg Oral TbEC 1 tab once daily [Active]; esomeprazole magnesium 40 mg Oral bp cpDR 1 cap once daily [Active]; lisinopril 20 mg Oral tab 1 tab once daily [Active]; lorazepam 2 mg Oral tab 1 tab TID prn [Active]; simvastatin 40 mg Oral tab 1 tab nightly [Active]; - PMHx: 10:44 Anxiety; CVA; GERD; Hepatitis C; High Cholesterol; Hypertension; kidney disease; bp suicidal ideation; Alcoholism; - Immunization history:: Adult Immunizations up to date. - Infectious Disease History:: Denies. - Social history:: Smoking status: Patient reports the use of cigarette tobacco products, unknown amount. Screenin:35 [facility] ED Fall Risk Assessment (Adult) History of falling in the last 3 months, bp including since admission Yes- physiologic fall (2 pts) Confusion or Disorientation No (0 pts) Intoxicated or Sedated No (0 pts) Impaired Gait No (0 pts) Mobility Assist Device Used Altered Elimination No (0 pt) Score/Fall Risk Level 0 - 2 = Low Risk Oriented to surroundings. Abuse screen: Denies threats or abuse. Denies injuries from another. Nutritional screening: No deficits noted. Tuberculosis screening: No symptoms or risk factors identified. Assessment: 10:35 General: Appears in no apparent distress. unkempt, Behavior is cooperative, appropriate bp for age, anxious. Neuro: Level of Consciousness is awake, alert, obeys commands, Oriented to person, place, time, situation. Cardiovascular: Rhythm is sinus rhythm. 14:00 Reassessment: No changes from previously documented assessment. Patient is alert, bp oriented x 3, equal unlabored respirations, skin warm/dry/pink. Vital Signs: 10:35 BP 84 / 57; Pulse 78; Resp 17; Temp 98; Pulse Ox 100% ; bp 11:24 BP 103 / 58; ms3 11:39 BP 123 / 72; Pulse 83; ms3 14:00 BP 135 / 77; Pulse 121; Resp 20; Pulse Ox 98% ; bp 14:48 BP 119 / 76; Pulse 82; Resp 15; Pulse Ox 100% ; hb NIH Stroke Scale Scores: 10:35 NIHSS Score: 2 bp ED Course: 10:35 Patient arrived in ED. ms3 10:35 Arm band placed on. bp 10:35 Patient has correct armband on for positive identification. bp 10:35 Maintain EMS IV. Dressing intact. Good blood return noted. Site clean \T\ dry. Gauge \T\ bp site: 18 GA LAC. Flushed with 10 mL NS. 10:38 Baldomero Coleman DO is Attending Physician. ms3 10:44 Triage completed. bp 10:48 Srinivasan Guo, RN is Primary Nurse. bp 10:49 CT Head C Spine In Process Unspecified. EDMS 11:02 Chest Single View XRAY In Process Unspecified. EDMS 11:48 Miguel Ortiz is Hospitalizing Provider. ms3 Administered Medications: No medications were administered Medication: 10:35 VIS not applicable for this client. bp Outcome: 11:49 Decision to Hospitalize by Provider. ms3 15:38 Patient left the ED. NIH Stroke Scale - NIH Stroke Score Date: 10/22/2024 Time: 10:35 Total Score = 2 10. Dysarthria (speech clarity - read or repeat words) - 0(Normal) 11. Extinction and Inattention (visual/tactile/auditory/spatial/personal) - 0(No abnormality) 1a. Level of Consciousness (LOC) - 0(Alert) 1b. Level of Consciousness (LOC) (Month \T\ Age) - 0(Both) 1c. LOC Commands (Open \T\ Closes Eyes/Environmental Programs Specialist) - 0(Both) 2. Best Gaze (Lateral Gaze Paresis) - 0(Normal) 3. Visual Field Loss - 0(No visual loss) 4. Facial Palsy - 0(Normal) 5a. Left Arm: Motor (10-second hold) - 0(No drift) 5b. Right Arm: Motor (10-second hold) - 0(No drift) 6a. Left Leg: Motor (5-second hold - always test supine) - 1(Drift) 6b. Right Leg: Motor (5-second hold - always test supine) - 1(Drift) 7. Limb Ataxia (finger/nose \T\ heel/ely - test with eyes open) - 0(Absent) 8. Sensory Loss (pinprick arms/legs/face) - 0(Normal) 9. Best Language: Aphasia (description/naming/reading) - 0(No aphasia) Initials: bp Signatures: Dispatcher [employer] Zahraa Cortes RN RN Karuna Ely RN RN Srinivasan Guo RN RN bp Sims, Marcus, DO DO ms3
--- NOTE | 2024-10-22 11:49 | EDPHYS ---
Physician Documentation [facility] Name: Arden Lux III Age: 64 yrs Sex: Male : 1960 Arrival Date: 10/22/2024 Time: 10:34 Bed 5 Private MD: ED Physician Baldomero Coleman HPI: 10/22 10:51 This 64 yrs old Male presents to ER via EMS with complaints of Syncope. ms3 10:51 Arden Lux presents to the Emergency Department after being brought in by [place] [facility]. The patient reports experiencing dizziness when standing up. Patient's states he took all of his medications this morning, including Lisinopril. The patient does not report any pain currently. EMS states patient does not have any neuro deficits and his BGL was normal. The exact duration of dizziness is unclear from the patient's account. Patient's notes that patient fell backwards striking the back of his head after getting off the public transportation bus.. Historical: - Allergies: 10:44 Sulfa (Sulfonamide Antibiotics); bp - Home Meds: 10:44 aspirin 81 mg Oral TbEC 1 tab once daily [Active]; esomeprazole magnesium 40 mg Oral bp cpDR 1 cap once daily [Active]; lisinopril 20 mg Oral tab 1 tab once daily [Active]; lorazepam 2 mg Oral tab 1 tab TID prn [Active]; simvastatin 40 mg Oral tab 1 tab nightly [Active]; - PMHx: 10:44 Anxiety; CVA; GERD; Hepatitis C; High Cholesterol; Hypertension; kidney disease; bp suicidal ideation; Alcoholism; - Immunization history:: Adult Immunizations up to date. - Infectious Disease History:: Denies. - Social history:: Smoking status: Patient reports the use of cigarette tobacco products, unknown amount. ROS: 10:51 Constitutional: Negative for fever, and chills. Cardiovascular: Negative for chest ms3 pain, and palpitations. Respiratory: Negative for shortness of breath, cough, wheezing, and pleuritic chest pain, Abdomen/GI: Negative for abdominal pain, nausea, vomiting, diarrhea, and constipation, MS/Extremity: Negative for injury and deformity, 10:51 Neuro: Positive for dizziness, syncope, Exam: 10:51 Constitutional: This is a well developed, well nourished patient who is awake, alert, ms3 and in no acute distress. Head/Face: Normocephalic, atraumatic. Neck: Trachea midline, no cervical lymphadenopathy. Supple, full range of motion without nuchal rigidity, or vertebral point tenderness. No Meningismus. Chest/axilla: Normal chest wall appearance and motion. Nontender with no deformity. Cardiovascular: Regular rate and rhythm with a normal S1 and S2. No gallops, murmurs, or rubs. Normal PMI, no JVD. No pulse deficits. Respiratory: Lungs have equal breath sounds bilaterally, clear to auscultation and percussion. No rales, rhonchi or wheezes noted. No increased work of breathing, no retractions or nasal flaring. Abdomen/GI: Soft, non-tender, with normal bowel sounds. No distension or tympany. No guarding or rebound. No evidence of tenderness throughout. Skin: Warm, dry with normal turgor. Normal color with no rashes, no lesions, and no evidence of cellulitis. MS/ Extremity: Pulses equal, no cyanosis. Neurovascular intact. Full, normal range of motion. 11:42 ECG was reviewed by the Attending Physician. ms3 Vital Signs: 10:35 BP 84 / 57; Pulse 78; Resp 17; Temp 98; Pulse Ox 100% ; bp 11:24 BP 103 / 58; ms3 11:39 BP 123 / 72; Pulse 83; ms3 14:00 BP 135 / 77; Pulse 121; Resp 20; Pulse Ox 98% ; bp 14:48 BP 119 / 76; Pulse 82; Resp 15; Pulse Ox 100% ; hb NIH Stroke Scale Scores: 10:35 NIHSS Score: 2 bp MDM: 10:35 Medical Screening Exam initiated ms3 10:51 Differential Diagnosis: cardiac arrhythmia, drug effect, idiopathic syncope. ms3 11:49 Management of patient was discussed with the following: Hospitalist: Dr Ortiz- accepts ms3 admission. 21:44 Data reviewed: vital signs, nurses notes, lab test result(s), EKG, radiologic studies, ms3 and as a result, I will discharge patient. Consideration of Admission/Observation Patient was admitted/placed on observation. Independent interpretation of the following test(s) in the Emergency Department EKG: See my EKG interpretation above. Historians other than the Patient: EMS: . Counseling: I had a detailed discussion with the patient and/or guardian regarding the historical points, exam findings, and any diagnostic results supporting the discharge/admit diagnosis, lab results, radiology results, the need for further work-up and treatment in the hospital. ED course: Discussed necessity for admission with patient and his and they understand/ agree with plan. All questions were answered. Patient remained in stable condition while in the Emergency Department.. 10/22 10:37 Order name: Basic Metabolic Panel; Complete Time: 11:39 ms3 10/22 10:37 Order name: CBC with Diff; Complete Time: 11:24 ms3 10/22 10:37 Order name: Hepatic Function; Complete Time: 11:39 ms3 10/22 10:37 Order name: Magnesium; Complete Time: 11:39 ms3 10/22 10:37 Order name: Protime (+inr); Complete Time: 11:24 ms3 10/22 10:37 Order name: Ptt, Activated; Complete Time: 11:24 ms3 10/22 10:37 Order name: Troponin High Sensitivity; Complete Time: 11:39 ms3 10/22 10:37 Order name: ETOH Level; Complete Time: 11:39 ms3 10/22 13:03 Order name: Basic Metabolic Panel EDMS 10/22 13:03 Order name: Basic Metabolic Panel EDMS 10/22 13:03 Order name: Basic Metabolic Panel EDMS 10/22 13:03 Order name: Basic Metabolic Panel EDMS 10/22 13:03 Order name: Basic Metabolic Panel EDMS 10/22 13:03 Order name: Basic Metabolic Panel EDMS 10/22 13:03 Order name: CBC with Automated Diff EDMS 10/22 13:03 Order name: CBC with Automated Diff EDMS 10/22 13:03 Order name: CBC with Automated Diff EDMS 10/22 13:03 Order name: CBC with Automated Diff EDMS 10/22 13:03 Order name: CBC with Automated Diff EDMS 10/22 13:03 Order name: CBC with Automated Diff EDMS 10/22 13:03 Order name: Magnesium EDMS 10/22 13:03 Order name: Magnesium EDMS 10/22 13:03 Order name: Magnesium EDMS 10/22 13:03 Order name: Magnesium EDMS 10/22 13:03 Order name: Magnesium EDMS 10/22 13:03 Order name: Magnesium EDMS 10/22 13:03 Order name: Phosphorus EDMS 10/22 13:03 Order name: Phosphorus EDMS 10/22 13:03 Order name: Phosphorus EDMS 10/22 13:03 Order name: Phosphorus EDMS 10/22 13:03 Order name: Phosphorus EDMS 10/22 13:03 Order name: Phosphorus EDMS 10/22 13:03 Order name: Troponin High Sensitivity EDMS 10/22 13:03 Order name: Troponin High Sensitivity EDMS 10/22 13:03 Order name: Troponin High Sensitivity EDMS 10/22 10:37 Order name: CT Head C Spine; Complete Time: 11:24 ms3 10/22 10:37 Order name: Chest Single View XRAY; Complete Time: 11:24 ms3 10/22 13:03 Order name: Delirium Tremens Prophylaxis-IV Meds EDMS 10/22 10:37 Order name: Cardiac monitoring; Complete Time: 11:31 ms3 10/22 10:37 Order name: EKG - Nurse/Tech; Complete Time: 11:31 ms3 10/22 10:37 Order name: IV Saline Lock; Complete Time: 10:48 ms3 10/22 10:37 Order name: Labs collected and sent; Complete Time: 11:31 ms3 10/22 10:37 Order name: NPO; Complete Time: 10:48 ms3 10/22 10:37 Order name: O2 Per Protocol; Complete Time: 10:48 ms3 10/22 10:37 Order name: O2 Sat Monitoring; Complete Time: 10:48 ms3 EC:42 Rate is 78 beats/min. Rhythm is regular. QRS [place] is Normal. [place] interval is normal. QRS ms3 interval is normal. Clinical impression: Normal ECG. Interpreted by me. Reviewed by me. Administered Medications: No medications were administered Disposition Summary: 10/22/24 11:49 Hospitalization Ordered Notes: Hospitalization Status: Observation ms3 Provider: Miguel Ortiz ms3 Location: Telemetry/MedSurg (observation) ms3 Condition: Stable ms3 Problem: new ms3 Symptoms: are unchanged ms3 Bed/Room Type: Standard ms3 Room Assignment: 222(10/22/24 14:32) bd Diagnosis - Hypotension, unspecified ms3 - Alcohol abuse with intoxication ms3 - Syncope ms3 Forms: - Medication Reconciliation Form ms3 - SBAR form ms3 - Leadership Thank You Letter ms3 NIH Stroke Scale - NIH Stroke Score Date: 10/22/2024 Time: 10:35 Total Score = 2 10. Dysarthria (speech clarity - read or repeat words) - 0(Normal) 11. Extinction and Inattention (visual/tactile/auditory/spatial/personal) - 0(No abnormality) 1a. Level of Consciousness (LOC) - 0(Alert) 1b. Level of Consciousness (LOC) (Month \T\ Age) - 0(Both) 1c. LOC Commands (Open \T\ Closes Eyes/[employer]) - 0(Both) 2. Best Gaze (Lateral Gaze Paresis) - 0(Normal) 3. Visual Field Loss - 0(No visual loss) 4. Facial Palsy - 0(Normal) 5a. Left Arm: Motor (10-second hold) - 0(No drift) 5b. Right Arm: Motor (10-second hold) - 0(No drift) 6a. Left Leg: Motor (5-second hold - always test supine) - 1(Drift) 6b. Right Leg: Motor (5-second hold - always test supine) - 1(Drift) 7. Limb Ataxia (finger/nose \T\ heel/ely - test with eyes open) - 0(Absent) 8. Sensory Loss (pinprick arms/legs/face) - 0(Normal) 9. Best Language: Aphasia (description/naming/reading) - 0(No aphasia) Initials: bp Signatures: Dispatcher [employer] EDMS Jacquelyn Villareal Brian, SARAH RN bp Baldomero Coleman DO DO ms3 Corrections: (The following items were deleted from the chart) 10:38 10:38 BASIC METABOLIC PANEL+C.LAB.BRZ ordered. EDMS EDMS 10:38 10:38 CBC+H.LAB.BRZ ordered. EDMS EDMS 10:38 10:38 HEPATIC FUNCTION+C.LAB.BRZ ordered. EDMS EDMS 10:38 10:38 MAGNESIUM+C.LAB.BRZ ordered. EDMS EDMS 10:38 10:38 PROTIME (+INR)+COAG.LAB.BRZ ordered. EDMS EDMS 10:38 10:38 PTT, ACTIVATED+COAG.LAB.BRZ ordered. EDMS EDMS 10:38 10:38 Troponin High Sensitivity+C.LAB.BRZ ordered. EDMS EDMS 10:38 10:38 Head C Spine MPR Wo Con+CT.RAD.BRZ ordered. EDMS EDMS 10:38 10:38 Chest Single View+RAD.RAD.BRZ ordered. EDMS EDMS 10:38 10:38 ETHANOL+C.LAB.BRZ ordered. EDMS EDMS 14:32 11:49 ms3 bd
--- NOTE | 2024-10-22 12:28 | P.HP ---
Certification for Inpatient Patient admitted to: Observation With expected LOS: <2 Midnights Patient will require the following post-hospital care: None Practitioner: I am a practitioner with admitting privileges, knowledge of patient current condition, hospital course, and medical plan of care. Services: Services provided to patient in accordance with Admission requirements found in Title 42 Section 412.3 of the Code of Federal Regulations Patient History Date of Service: 10/22/24 Reason for admission: Syncopal episode History of Present Illness: Arden Lux is a 64 year old male with a Pmhx Anxiety, CVA, GERD, Hepatitis C, High Cholesterol, Hypertension, kidney disease, suicidal ideation, Alcoholism, who presents to the ED after a syncopal episode. He reports drinking almost a whole bottle of wine this morning then boarded the bus to go to the [employer]. The last thing he remembers is getting off the bus, he remembers intermittent times of waking up but not coherent of his surroundings. He reports always drinking all day long. He was recently discharged Oct 18 from alcohol intoxication and chest pain. Alcohol level 202, BUN/creatinine 29/2.12, GFR 34, CIWA score 3. Chest xray reports " No acute abnormality is displayed " CT head without reports "No acute intracranial abnormality noted, a cervical fracture is not seen Arden will be admitted to hospitalist service for further evaluation of syncopal episode and EVELIA. Allergies Sulfa (Sulfonamide Antibiotics) Allergy (Verified 04/26/23 20:57) unknown Home Medications: Aspirin Chewable [Aspirin Chewable*] 81 mg PO DAILY 04/26/23 Fluoxetine HCl [Prozac] 40 mg PO DAILY 04/26/23 Lisinopril [Zestril] 10 mg PO DAILY 04/26/23 Pantoprazole [Protonix Tab*] 40 mg PO DAILY 04/26/23 Simvastatin [Zocor] 40 mg PO BEDTIME 12/23/23 - Past Medical/Surgical History Diabetic: No -: Hypertension -: History of CVA -: Hyperlipidemia -: Erosive gastritis -: Abdominal aortic aneurysm -: Enlarged prostate -: Alcohol abuse -: Tobacco abuse -: Cocaine abuse Psychosocial/ Personal History: Patient is - Family History Father -: Heart disease Sister -: Diabetes - Social History Alcohol use: Yes CD- Drugs: Yes Caffeine use: No Review of Systems General: Weakness Neurological: Other (syncopy) Physical Examination - Physical Exam General: Oriented x3, Disheveled HEENT: Atraumatic, Normocephalic, PERRLA Neck: Supple, 2+ carotid pulse no bruit Respiratory: Clear to auscultation bilaterally, Normal air movement Cardiovascular: Normal pulses, Regular rate/rhythm, Normal S1 S2 Capillary refill: <2 Seconds Gastrointestinal: Normal bowel sounds, Soft and benign Musculoskeletal: No clubbing Integumentary: No rashes Neurological: Abnormal speech (slurred speech) - Studies Laboratory Data (last 24 hrs) 10/22/24 10/22/24 10/22/24 11:01 11:01 11:01 WBC 7.00 Hgb 9.6 L Hct 28.1 L Plt Count 163 PT 13.2 H INR 1.18 APTT 26.6 Sodium 142 Potassium 3.9 BUN 29 H Creatinine 2.12 H Glucose 98 Magnesium 2.0 Total Bilirubin 0.3 AST 81 H ALT 61 Alkaline Phosphatase 45 Assessment and Plan - Plan Assessment and plan Alcohol intoxication -Daily drinker for around 40 years -Alcohol level 202 -Folic acid, thiamine supplementation -CIWA score 3 -IVF -Supportive care -Ativan as needed EVELIA -BUN/creatinine 29/2.12, GFR 34 -IVF -monitor in AM labs -last admission, he recovered back to baseline Chronic hepatitis C Hypertension/Hyperlipidemia CVA Anxiety GERD -Continue home medications and follow-up outpatient Substance abuse -History of smoking, marijuana, and alcohol abuse DVT ppx SCD Full code LOS 24 hour OBS Discharge Plan: Home Plan to discharge in: 24 Hours - Advance Directives Does patient have a Living Will: No Does patient have a Durable POA for Healthcare: No
[2024-10-22] MEDS ORDERED: LORazepam 2 MG/ML VIAL IV PRN (12:55)
[2024-10-22] MEDS ORDERED: ONDANSETRON 4 MG/2 ML VIAL IV PRN (12:55)
[2024-10-22] MEDS ORDERED: FLUMAZENIL 0.1 MG/ML (5 mL VIAL) IV PRN (12:55)
[2024-10-22 15:48] VITALS: BMI 25.0
[2024-10-22 15:53] VITALS: O2SAT 100
[2024-10-22] MEDS: NA CHLORIDE 0.9% 1,000 ML IV SCH (17:07)
[2024-10-22] MEDS: ATORVASTATIN 40 MG TAB PO SCH (20:44)
[2024-10-23 05:04] LABS: Anion Gap 10.6 mEq/L (5.0-15.0); Magnesium 1.5 mg/dL (1.6-2.4); Potassium 3.6 mEq/L (3.5-5.1)
[2024-10-23 05:10] LABS: Absolute Eosinophils 0.3 K/uL (0-0.5); Absolute Lymphocytes (CBC) 2.4 K/uL (0.7-4.9); Absolute Monocytes 0.6 K/uL (0.1-1.3); Absolute Neutrophil 4.3 K/uL (1.8-8.0); Basophils % 0.5 % (0-1.3); Eosinophils % 3.7 % (0-4.4); Hematocrit 28.1 % (39.6-49.0); Hemoglobin 9.9 g/dL (13.6-17.9); Lymphocytes % 31.6 % (15.3-44.8); MCHC 35.1 g/dL (32.0-36.0); MCV 96.9 fL (80-100); MPV 8.4 fL (7.6-11.3); Monocytes % 8.1 % (3.3-12.3); Neutrophils % 56.1 % (41.7-73.7); Nucleated Red Blood Cells % 0.1 % (0-0); Platelets 119 thou/uL (152-406); Red Cell Distribution Width 13.2 % (12.1-15.2)
[2024-10-23] MEDS: Magnesium Sulfate 2gm IVPB 2 G/50 ML BAG IV ONE (06:14)
[2024-10-23] MEDS: PANTOPRAZOLE 40MG TABLET PO SCH (07:44)
[2024-10-23] MEDS: THIAMINE HCL 100 MG TABLET PO SCH (07:44)
[2024-10-23] MEDS: FLUOXETINE 20 MG CAP PO SCH (07:44)
[2024-10-23] MEDS: POTASSIUM CL SA 10 MEQ TAB PO ONE (07:44)
[2024-10-23] MEDS: ASPIRIN 81 MG CHEWABLE TABLET PO SCH (07:44)
[2024-10-23] MEDS: lisinopriL 10 MG TAB PO SCH (07:45)
[2024-10-23] MEDS: FOLIC ACID 1 MG TABLET PO SCH (07:45)
[2024-10-23] MEDS: MULTIVITAMIN TAB PO SCH (07:45)
[2024-10-23 09:03] VITALS: BP 166/80; TEMP 97.5
--- NOTE | 2024-10-23 19:02 | P.DS ---
Admission Date: 10/22/24 Discharge Date: 10/23/24 Disposition: ROUTINE DISCHARGE Discharge Condition: GOOD Reason for Admission: Syncopal episode Brief History of Present Illness: Diagnosis Alcohol intoxication EVELIA 2/2 dehydration Chronic hepatitis C Hypertension/Hyperlipidemia CVA Anxiety GERD Substance abuse HPI 10/22/24 Arden Lux is a 64 year old male with a Pmhx Anxiety, CVA, GERD, Hepatitis C, High Cholesterol, Hypertension, kidney disease, suicidal ideation, Alcoholism, who presents to the ED after a syncopal episode. He reports drinking almost a whole bottle of wine this morning then boarded the bus to go to the [employer]. The last thing he remembers is getting off the bus, he remembers intermittent times of waking up but not coherent of his surroundings. He reports always drinking all day long. He was recently discharged Oct 18 from alcohol intoxication and chest pain. Alcohol level 202, BUN/creatinine 29/2.12, GFR 34, CIWA score 3. Chest xray reports " No acute abnormality is displayed " CT head without reports "No acute intracranial abnormality noted, a cervical fracture is not seen Arden will be admitted to hospitalist service for further evaluation of syncopal episode and EVELIA. Hospital Course: Arden Lux is a pleasant 64 year old male with a past medical history significant for Anxiety, CVA, GERD, Hepatitis C, High Cholesterol, Hypertension, kidney disease, suicidal ideation, Alcoholism who was admitted to the [facility] on 10/22/24 for Syncopal episode and alcohol intoxication. arden Lux presented to the ED after a syncopal episode while getting off the bus. He reports passing out and not realizing he was in the hospital when he woke up. He reports drinking "almost" an entire wine bottle. He reports "drinking alot everyday" and was recently admitted for the same reasoning. Head/Neck CT with no acute findings and no cervical fracture seen. His alcohol level at 202 with some dizziness. Overnight, there were no acute events. Telemetry with Normal Sinus rhythm, he was able to ambulate to the bathroom independently and reported dizziness had ceased. His kidney function returned to baseline, greatly improved with IVF. He has a history of substance abuse with alcohol, smoking, and drug use. Cessation education provided and encouraged. Educated to refrain from alcohol after discharge and remain hydrated. Blood pressure was elevated while IVF were infusing, restarted blood pressure medication and turned off the IVF resulted with adaquate decrease in blood pres sure. On 10/23/24, Arden was seen on morning rounds and deemed medically stable for discharge. Arden was discharged with instructions to schedule follow-up appointments with PCP. Arden was provided prescriptions for folic acid, thiamine, multivitimin. Physical Exam General: Alert and Oriented x3, NAD HEENT: Atraumatic, Normocephalic, PERRLA Neck: Supple, 2+ carotid pulse no bruit Respiratory: Clear to auscultation bilaterally, Normal air movement, on RA Cardiovascular: Normal pulses, RRR, Normal S1 S2 Capillary refill: <2 Seconds Gastrointestinal: Normal bowel sounds, Soft and benign on palpation Musculoskeletal: No clubbing Integumentary: No rashes Neurological: Grossly afoccal Vital Signs/Physical Exam: Temp Pulse Resp BP Pulse Ox 97.5 F 94 H 16 166/80 H 98 10/23/24 08:00 10/23/24 08:00 10/23/24 08:00 10/23/24 08:00 10/23/24 08:00 Laboratory Data at Discharge: WBC 7.60 thou/uL (4.3-10.9) 10/23/24 04:14 Hgb 9.9 g/dL (13.6-17.9) L 10/23/24 04:14 Hct 28.1 % (39.6-49.0) L 10/23/24 04:14 Plt Count 119 thou/uL (152-406) L D 10/23/24 04:14 PT 13.2 SECONDS (9.4-12.5) H 10/22/24 11:01 INR 1.18 10/22/24 11:01 APTT 26.6 SECONDS (24.3-36.9) 10/22/24 11:01 Sodium 140 mEq/L (136-145) 10/23/24 04:14 Potassium 3.6 mEq/L (3.5-5.1) 10/23/24 04:14 BUN 24 mg/dL (7-18) H 10/23/24 04:14 Creatinine 1.45 mg/dL (0.70-1.30) H 10/23/24 04:14 Glucose 110 mg/dL (74-106) H 10/23/24 04:14 Phosphorus 3.0 mg/dL (2.5-4.9) 10/23/24 04:14 Magnesium 1.5 mg/dL (1.6-2.4) L 10/23/24 04:14 Total Bilirubin 0.3 mg/dL (0.2-1.0) 10/22/24 11:01 AST 81 U/L (15-37) H 10/22/24 11:01 ALT 61 U/L (16-61) 10/22/24 11:01 Alkaline Phosphatase 45 U/L (45-117) 10/22/24 11:01 Home Medications: Aspirin Chewable [Aspirin Chewable*] 81 mg PO DAILY 04/26/23 Fluoxetine HCl [Prozac] 40 mg PO DAILY 04/26/23 Lisinopril [Zestril] 10 mg PO DAILY 04/26/23 Pantoprazole [Protonix Tab*] 40 mg PO DAILY 04/26/23 Simvastatin [Zocor] 40 mg PO BEDTIME 12/23/23 Folic Acid 1 mg PO DAILY 30 Days #30 tab 10/23/24 Multivit,Ther Iron,Ca,FA & Min [Centrum Tablet*] 1 tab PO DAILY 30 Days #30 tab 10/23/24 Thiamine HCl [Vitamin B-1*] 100 mg PO DAILY 30 Days #30 tab 10/23/24 New Medications: Multivit,Ther Iron,Ca,FA & Min [Centrum Tablet*] 1 tab PO DAILY 30 Days #30 tab Folic Acid 1 mg PO DAILY 30 Days #30 tab Thiamine HCl [Vitamin B-1*] 100 mg PO DAILY 30 Days #30 tab Physician Discharge Instructions: Admitted due to fall and unconsciousness. CT of head with no acute findings. Alcohol level 202, please refrain from alcohol and drink water to stay hydrated. Follow up with your PCP and continue home medications. 1. Please call and follow up with PCP in 3-4 days -all refills of your prescriptions will be handled by your PCP 2. Please refrain from the use of alcohol, stay hydrated 3. Continue a heart healthy diet 4. Continue taking medications 5. fall precautions 6. Return to the ED if symptoms worsen Diet: AHA Activity: Fall precautions Followup: NONE,NONE [Primary Care Provider] -
== END 2024-10-23 09:49 | disposition home or self-care (01) ==
LOC: ER 10:34 → ERHOLD 12:55 → 2ND 15:00
PROVIDERS: ADMIT Internal Medicine; ATTEND Hospitalist
DX: R55 Syncope and collapse (principal); F10.229 Alcohol dependence with intoxication, unspecified; I95.9 Hypotension, unspecified; F41.9 Anxiety disorder, unspecified; K21.9 Gastro-esophageal reflux disease without esophagitis; E78.00 Pure hypercholesterolemia, unspecified; I10 Essential (primary) hypertension; E78.5 Hyperlipidemia, unspecified; F12.90 Cannabis use, unspecified, uncomplicated; B19.20 Unspecified viral hepatitis C without hepatic coma; Y90.7 Blood alcohol level of 200-239 mg/100 ml; Z88.2 Allergy status to sulfonamides; Z86.73 Personal history of transient ischemic attack (TIA), and cerebral infarction without residual deficits
CPT/HCPCS: 85025 ×2; 80048 ×2; 36415; 83735 ×2; 84100; 85610; 80076; 85730; 84484 ×3; 70450; 72125; 71045; 99284; 82077; J3475; J7030 ×2; G0378 ×4

== ENCOUNTER 2025-02-04 18:38 | Emergency (ER) | payer MEDICARE, OTHER ==
--- OUTSIDE RECORDS SUMMARY | 2025-02-04 18:42 | XMS REPORT | Continuity of Care Document ---
Author Name Unknown Address [address] [place] [address] [address] [place] [address] [facility] Address [address] [facility] 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 Name Role Phone NIKOLE SALES Attending Clinician Unavailable Trevor Morris Attending Clinician Dania Loaiza Attending Clinician [phone] Ogbechiagustín_Jodee Attending Clinician Unavailable Rafael-Mbayo_A_AH Attending Clinician Unavailable Ogbechie_L Admitting Clinician Unavailable Rafael-Mbayo_A_AH Admitting Clinician Unavailable Payers Payer Name Policy Type Policy Number Effective Date Expirati on Date Source [facility] 5 [id number] 2024 00:00:00 [facility] (MEDICARE REPLACEMENT HMO) [id number] 00:00:00 [facility] (MEDICARE REPLACEMENT/[employer] [facility] - HMO) [id number] 2019 00:00:00 Allergies, Adverse Reactions, Alerts Allergy Name Allergy Type Status Severity Reaction(s) Onset Date Inactive Date Treating Clinician Comments Source Sulfa Antibiot ics Drug Allergy Active [facility] Medications Ordered Medication Name Filled Medication Name Start Date Stop Date Current Medication? Ordering Clinician Indication Dosage Frequency Signature (SIG) Comments Components Source pantoprazol e sodium [address] shipleyoprazol e sodium 40 mg tablet Yes [facility] fluoxetine hcl 40 mg capsule fluoxetine hcl 40 mg capsule Yes [facility] lisinopril 10 mg tablet lisinopril 10 mg tablet Yes [facility] simvastatin 40 mg tablet simvastatin 40 mg tablet Yes [facility] Encounters Start Date/Time End Date/Time Encounter Type Admission Type Attending Clinicians Care Facility Care Department Encounter ID Source 2025-01-22 15:00:00 2025-01-22 15:00:00 Outpatient NIKOLE SALES [id number] Lakshmi Watts 2024-06-21 15:00:00 2024-06-21 15:30:00 MAGII Refill Trevor Morris [id number] [facility] 2023-11-01 21:45:00 2023-11-01 22:05:00 FLIGHT ATTENDANT/INFLIGHT MANAGER Panel-dire cted Gap Closure Dania Josse [id number]. [id number] 2.16.840.1. [id number] [facility] 2023-08-02 17:10:00 2023-08-02 17:30:00 Care [facility] - Gap Closure Dania Josse 2.16.840. [id number] 2.16.840.1. [id number] [facility] 2023-06-15 16:30:00 2023-06-15 17:30:00 CAV Dania Josse 2.16.840. [id number] 2.16.840.1. [id number] [facility] 2023-06-01 00:00:00 2023-06-01 00:00:00 Outpatient Ogbechie_L [facility] [id number] [facility] 2023-06-01 00:00:00 2023-06-01 00:00:00 Outpatient Ogbechie_L [facility] [id number] [facility] 2022-06-04 03:40:00 2022-06-04 03:40:00 Outpatient [facility] [id number] [facility] 2022-06-04 00:00:00 2022-06-04 00:00:00 Outpatient [facility] [id number] [facility] 2021-12-14 08:00:00 2021-12-14 08:00:00 Outpatient [facility] [id number] [facility] 2021-12-04 09:00:00 2021-12-04 09:00:00 Outpatient [facility] [id number] [facility] 2021-03-18 04:31:00 2021-03-18 04:31:00 Outpatient Rafael-Mbayo _A_AH VFP VFP [id number] [facility] 2020-01-17 04:19:00 2020-01-17 04:19:00 Outpatient Rafael-Mbayo _A_AH VFP VFP [id number] [facility] 2020-01-17 04:19:00 2020-01-17 04:19:00 Outpatient Rafael-Mbayo _A_AH VFP VFP [id number] [facility] 2020-01-17 04:19:00 2020-01-17 04:19:00 Outpatient Rafael-Mbayo _A_AH VFP VFP [id number] [facility] 2020-01-17 04:19:00 2020-01-17 04:19:00 Outpatient Rafael-Mbayo _A_AH VFP VFP [id number] [facility] 2020-01-17 04:19:00 2020-01-17 04:19:00 Outpatient Rafael-Mbayo _A_AH VFP VFP [id number] [facility] Notes Date/Time Note Provider Source 2024-06-21 15:00:00 ASSESSMENT SUMMARY LORETO LANG III is a 64 year old man seen today by [facility] for a [facility] Visit. [facility] Visits are designed to target a specific urgent or non-urgent clinical concern. See below for teaching and instruction given regarding specific diagnoses. Member verbalized understanding to all. Members Preferred Language Nepalese Patient Currently Located in their home state of [place], YES DIAGNOSIS [id number] - Essential (primary) aqsgpqvpczbiQ49.5 - Hyperlipidemia, nntelwiptvsH19.9 - Anxiety disorder, mepyrlgvakqM30.1 - Encounter for screening for diabetes mellitus HISTORY OF PRESENT ILLNESS History of Present Illness: 64 yo M referred for OD visit from [facility] team for medication refills. Recommended medication refills: magii scheduled, refill assistance LISINOPRIL TAB 10MG , #90 1 tablet daily member's number [facility] pharmacy [phone] He is also requesting a refill of [...] Recent labs: no labs available Pharmacy: - [facility] [id number] [phone] Recent Labs: There are no labs in [...] AND SCHEDULING Member Follow Up/Coordination: Yes Trevor Morris [facility]
[2025-02-04 19:04] LABS: Absolute Basophils 0.1 K/uL (0-0.5); Absolute Eosinophils 0.2 K/uL (0-0.5); Absolute Lymphocytes (CBC) 3.1 K/uL (0.7-4.9); Absolute Monocytes 0.4 K/uL (0.1-1.3); Absolute Neutrophil 1.2 K/uL (1.8-8.0); Basophils % 1.2 % (0-1.3); Eosinophils % 4.2 % (0-4.4); Hematocrit 29.5 % (39.6-49.0); Hemoglobin 10.4 g/dL (13.6-17.9); Lymphocytes % 62.2 % (15.3-44.8); MCH 34.3 pg (27.0-35.0); MCHC 35.1 g/dL (32.0-36.0); MCV 97.6 fL (80-100); MPV 7.8 fL (7.6-11.3); Monocytes % 8.4 % (3.3-12.3); Nucleated Red Blood Cells % 0.2 % (0-0); Platelets 138 thou/uL (152-406); RBC Red Blood Cell Count 3.02 M/uL (4.33-5.43); Red Cell Distribution Width 14.2 % (12.1-15.2)
[2025-02-04 19:10] LABS: PT Prothrombin Time 11.3 SECONDS (10-13.0); PTT, Activated Partial Thromb 30.2 SECONDS (27.2-37.4); Protime INR 0.99
[2025-02-04 19:21] LABS: ALT/SGPT 89 U/L (16-61); AST/SGOT 84 U/L (15-37); Albumin 3.4 g/dL (3.4-5.0); Albumin/Globulin Ratio 0.9 (1.1-1.8); Alkaline Phosphatase 61 U/L (45-117); BUN Blood Urea Nitrogen 18 mg/dL (7-18); Bicarbonate 24 mEq/L (21-32); Bilirubin Total 0.3 mg/dL (0.2-1.0); Globulin 3.8 g/dL (2.3-3.5); Glomerular Filtration Rate 51 ml/min (=/>90); Glucose Level 121 mg/dL (74-106); Lipase 95 U/L (13-75); Magnesium 2.2 mg/dL (1.6-2.4); NT PRO-BNP 54 pg/mL (<125); Protein, Total 7.2 g/dL (6.4-8.2); Sodium Level 140 mEq/L (136-145); Troponin High Sensitivity 7.8 pg/mL (<58.9)
[2025-02-04 19:23] LABS: Bilirubin Direct < 0.2 mg/dL (0-0.2); Bilirubin Indirect, Calculated 0.1 mg/dL (0.2-0.8)
[2025-02-04 19:32] LABS: Barbiturates NEGATIVE (NEGATIVE); Benzodiazepines NEGATIVE (NEGATIVE); Cocaine NEGATIVE (NEGATIVE); METHAMPHETAM NEGATIVE (NEGATIVE); Methadone NEGATIVE (NEGATIVE); Opiates NEGATIVE (NEGATIVE); Phencyclidine NEGATIVE (NEGATIVE); THC Cannibis NEGATIVE (NEGATIVE)
--- NOTE | 2025-02-04 19:35 | RAD REPORT ---
EXAM: Chest Single View HISTORY: 64 years Male CHEST PAIN COMPARISON: 10/22/2024 FINDINGS: LUNGS/PLEURA: The lungs are clear. No pleural effusions or pneumothorax. No pulmonary edema. CARDIAC/MEDIASTINUM: The cardiac silhouette is within normal limits. UPPER ABDOMEN: No significant abnormality. BONES: No acute abnormality. LINES/TUBES/OTHER: N/A IMPRESSION: No evidence of acute cardiopulmonary disease.
[2025-02-04] MEDS ORDERED: THIAMINE 200 MG/2 ML INJ ONE (20:04)
[2025-02-04] MEDS ORDERED: FOLIC ACID 5 MG/ML VIAL ONE (20:04)
[2025-02-04] MEDS ORDERED: MULTIVITAMINS 10 ML VIAL (INJ) IV ONE (20:04)
[2025-02-04] MEDS ORDERED: NA CHLORIDE 0.9% 1,000 ML ONE (20:05)
[2025-02-04] MEDS ORDERED: LORazepam 2 MG/ML VIAL ONE (20:17)
[2025-02-04 20:44] LABS: Differential Total Cells Count 100; Eosinophils 2 % (0-3); Lymphocytes 64 % (15-42); Monocytes 8 % (0-10); Segmented Neutrophils 25 % (40-80)
[2025-02-04 20:45] LABS: Blood Morphology Comment NOTED (NOT SEEN); Platelet Estimate DECR
--- NOTE | 2025-02-04 21:21 | RAD REPORT ---
EXAMINATION: CT ABDOMEN AND PELVIS WITH CONTRAST CLINICAL INDICATION: Male, 64 years old.elevated lfts and lipase TECHNIQUE: CT abdomen and pelvis was performed, after the administration of IV contrast, as per [facility] protocol. Axial, sagittal and coronal reconstructions were obtained. One or more of the following dose reduction techniques were used: Automated exposure control, adjustment of the mA and/o r kV according to patient size, and/or iterative reconstruction. Unless otherwise specified, incidental findings do not require dedicated imaging follow-up. [id number]. COMPARISON: 10/17/2024 FINDINGS: LOWER CHEST: No acute process identified.No significant pericardial effusion. Mild coronary artery ca lcifications. UPPER GI: No significant abnormality. LIVER: Hepatic steatosis, but otherwise unremarkable. GALLBLADDER/BILE DUCTS: No biliary ductal dilatation.? PANCREAS: No mass, ductal dilation, or claudio-pancreatic fluid. SPLEEN: Unremarkable. ADRENALS: No adrenal masses. KIDNEYS AND URETERS: No hydronephrosis.Low density and/or too small to characterize renal lesions whi ch are statistically benign. ABDOMINAL AORTA AND OTHER VESSELS: Moderate atherosclerotic changes without aortic aneurysm. PERITONEUM: No abnormal free fluid. No free air. LYMPH NODES: No pathologic lymphadenopathy. ABDOMINAL WALL: Small fat containing umbilical hernia. SMALL BOWEL/COLON: Small bowel has normal course and caliber. No colonic wall thickening or pericolon ic inflammatory changes. URINARY BLADDER: Underdistended but grossly unremarkable. REPRODUCTIVE ORGANS: No pathologic process. MUSCULOSKELETAL: Multilevel degenerative changes in the spine. No acute fracture. ADDITIONAL FINDINGS: None. IMPRESSION: No acute findings within the abdomen or pelvis. No evidence of acute pancreatitis. Ancillary findings as noted above.
--- NOTE | 2025-02-05 01:24 | ER ---
Nurse's Notes [facility] Name: Arden Lux III Age: 64 yrs Sex: Male : 1960 Arrival Date: 02/04/2025 Time: 18:38 Bed 6 Private MD: Diagnosis: Alcohol use, unspecified with intoxication;Chest pain, unspecified Presentation: 02/04 18:41 Chief complaint: EMS states: Toned out to apartment complex for patient sitting in the ld1 grass c/o chest pain and headache due to falling down drunk. Reports drinking alcohol daily - 1 bottle of wine today. Coronavirus screen: At this time, the client does not indicate any symptoms associated with coronavirus-19. Ebola Screen: No symptoms or risks identified at this time. Initial Sepsis Screen: Does the patient meet any 2 criteria? No. Patient's initial sepsis screen is negative. Does the patient have a suspected source of infection? No. Patient's initial sepsis screen is negative. Risk Assessment: Do you want to hurt yourself or someone else? Patient reports no desire to harm self or others. Onset of symptoms was February 04, 2025. 18:41 Method Of Arrival: EMS: [facility] ld1 18:41 Acuity: LILIA 3 ld1 Triage Assessment: 18:41 General: Appears in no apparent distress. comfortable, Behavior is calm, cooperative, ld1 appropriate for age. Pain: Complains of pain in chest Pain does not radiate. Pain currently is 8 out of 10 on a pain scale. Quality of pain is described as throbbing, Pain began 1 day ago. Is intermittent. EENT: No signs and/or symptoms were reported regarding the EENT system. Neuro: Level of Consciousness is awake, alert, obeys commands, Oriented to person, place, time, situation, Appropriate for age. Cardiovascular: Capillary refill < 3 seconds Patient's skin is warm and dry. Rhythm is sinus rhythm. Cardiovascular: Rhythm is sinus tachycardia. Respiratory: Respiratory: Airway is patent Respiratory effort is even, unlabored. GI: Abdomen is flat, non-distended. : No signs and/or symptoms were reported regarding the genitourinary system. Derm: No signs and/or symptoms reported regarding the dermatologic system. Musculoskeletal: No signs and/or symptoms reported regarding the musculoskeletal system. Historical: - Allergies: 18:40 Sulfa (Sulfonamide Antibiotics); ld1 - PMHx: 18:40 Alcoholism; Hepatitis C; kidney disease; High Cholesterol; Hypertension; CVA; GERD; ld1 suicidal ideation; Anxiety; - Immunization history:: Adult Immunizations up to date. - Infectious Disease History:: Denies. - Social history:: Smoking status: Patient denies any tobacco usage or history of. Patient uses alcohol, on a daily basis. Screenin:46 [facility] ED Fall Risk Assessment (Adult) History of falling in the last 3 months, ld1 including since admission No falls in past 3 months (0 pts) Confusion or Disorientation No (0 pts) Intoxicated or Sedated No (0 pts) Impaired Gait No (0 pts) Mobility Assist Device Used No (0 pt) Altered Elimination No (0 pt) Score/Fall Risk Level 0 - 2 = Low Risk Oriented to surroundings, Hourly rounding (assess needs \T\ fall precautionary measures) done. Abuse screen: Denies threats or abuse. Denies injuries from another. Nutritional screening: No deficits noted. Tuberculosis screening: No symptoms or risk factors identified. Assessment: 18:46 Reassessment: See triage assessment. Pt taking our blood pressure cuff off and putting ld1 his own monitor on - says our monitor is not accurate. Re educated patient on need to stay on our monitor. Will continue to monitor. 19:10 General: assisted pt to use his phone to call his . . vc1 19:10 Pain: Complains of pain in chest. Neuro: Level of Consciousness is awake, obeys vc1 commands, Oriented to person, place, situation. Cardiovascular: Heart tones S1 S2 present Capillary refill < 3 seconds Patient's skin is warm and dry. Respiratory: Airway is patent Respiratory effort is even, unlabored, Respiratory pattern is regular, symmetrical, Breath sounds are clear bilaterally. GI: No deficits noted. No signs and/or symptoms were reported involving the gastrointestinal system. : No deficits noted. No signs and/or symptoms were reported regarding the genitourinary system. 20:45 Reassessment: No changes from previously documented assessment. Patient states symptoms vc1 have improved. Pain: Denies pain. 22:46 Reassessment: Patient appears in no apparent distress at this time. No changes from al5 previously documented assessment. Patient and/or family updated on plan of care and expected duration. Pain level reassessed. 23:59 Reassessment: Patient appears in no apparent distress at this time. No changes from al5 previously documented assessment. Patient and/or family updated on plan of care and expected duration. Pain level reassessed. Patient is alert, oriented x 3, equal unlabored respirations, skin warm/dry/pink. 02/05 00:56 Reassessment: Patient appears in no apparent distress at this time. No changes from al5 previously documented assessment. Patient and/or family updated on plan of care and expected duration. Pain level reassessed. Patient is alert, oriented x 3, equal unlabored respirations, skin warm/dry/pink. Vital Signs: 02/04 18:41 BP 162 / 90; Pulse 115; Resp 18; Temp 97.5(TE); Pulse Ox 96% on R/A; Weight 72.57 kg; ld1 Height 5 ft. 10 in. ; Pain 7/10; 19:41 BP 147 / 87; Pulse 110; Resp 18; Pulse Ox 100% ; vc1 20:30 BP 138 / 82; Pulse 88; Resp 16; Pulse Ox 99% ; al5 22:30 BP 104 / 67; Pulse 92; Resp 16; Pulse Ox 94% on R/A; al5 23:30 BP 111 / 70; Pulse 95; Resp 16; Pulse Ox 97% ; al5 02/05 00:45 BP 119 / 77; Pulse 93; Resp 16; Pulse Ox 95% ; al5 01:30 BP 124 / 75; Pulse 97; Resp 15; Pulse Ox 96% on R/A; al5 02/04 18:41 Body Mass Index 22.96 (72.57 kg, 177.8 cm) ld1 02/04 18:41 Pain Scale: Adult ld1 ED Course: 02/04 18:40 Patient arrived in ED. ld1 18:41 Dale Holbrook PA is PHCP. cp 18:41 William Davis MD is Attending Physician. cp 18:41 Arm band placed on right wrist. ld1 18:44 Triage completed. ld1 18:46 Patient has correct armband on for positive identification. Placed in gown. Bed in low ld1 position. Call light in reach. Side rails up X2. ekg monitor on. Pulse ox on. NIBP on. Door closed. Noise minimized. Warm blanket given. 18:46 No provider procedures requiring assistance completed. Inserted saline lock: 18 gauge ld1 in right wrist, using aseptic technique. Blood collected. Flushed with 10 mL NS. Patient maintains SpO2 saturation greater than 95% on room air. 18:50 Kandi Coleman, RN is Primary Nurse. ld1 18:57 EKG done, by ED staff, reviewed by Dale CISSE. kb4 19:25 XRAY Chest (1 view) In Process Unspecified. EDMS 19:30 UDS Sent. vc1 19:43 Provided Education on: call light, fall safety. vc1 21:00 CT Abd/Pelvis - IV Contrast Only In Process Unspecified. EDMS 02/05 00:46 Gerard Palmer MD is Attending Physician. cp 02:10 IV discontinued, intact, bleeding controlled, No redness/swelling at site. Pressure al5 dressing applied. Administered Medications: 02/04 20:11 Drug: Banana Bag - (Multivitamin IV 1 amp, NS 0.9% IV 1000 ml, Thiamine IV 100 mg, vc1 foLIC Acid IVPB 1 mg) IV at 250 ml/hr once Route: IV; Rate: 250 ml/hr; Site: right wrist; 02/05 02:11 Follow up: Response: No adverse reaction; IV Status: Completed infusion; IV Intake: al5 1000ml 02/04 20:23 Drug: Ativan IVP 0.5 mg IVP once Route: IVP; Site: right wrist; vc1 02/05 02:11 Follow up: Response: No adverse reaction al5 Medication: 02/04 18:46 VIS not applicable for this client. ld1 Intake: 02/05 02:11 IV: 1000ml; Total: 1000ml. al5 Outcome: 01:24 Discharge ordered by MD. cp 02:10 Discharged to home ambulatory, al5 02:10 Condition: good 02:10 Discharge instructions given to patient, Instructed on discharge instructions, follow up and referral plans. Demonstrated understanding of instructions, follow-up care, 02:10 Patient left the ED. al5 Signatures: Dispatcher [employer] EDDE Dale Holbrook PA PA cp Sims, Lauren, RN RN ld1 Manisha Arellano RN RN vc1 Opal Rincon RN RN al5 Dayana Vuong kb4
--- NOTE | 2025-02-05 01:25 | EDPHYS ---
Physician Documentation [facility] Name: Arden Lux III Age: 64 yrs Sex: Male : 1960 Arrival Date: 02/04/2025 Time: 18:38 Bed 6 Private MD: ED Physician Gerard Palmer HPI: 02/04 18:45 This 64 yrs old Male presents to ER via EMS with complaints of Chest Pain, ETOH Abuse. cp 18:45 The patient or guardian reports chest pain that is located primarily in the substernal cp area. Onset: reports for awhile. 18:45 The pain does not radiate. cp 18:45 Associated signs and symptoms: Pertinent negatives: abdominal pain, diaphoresis, lower cp extremity pain, lower extremity swelling, near syncope, shortness of breath, syncope. 18:45 The chest pain is described as throbbing. cp 18:45 Duration: The patient or guardian reports a single episode, that is still ongoing. cp Severity of pain: in the emergency department the pain is unchanged despite EMS interventions. Historical: - Allergies: 18:40 Sulfa (Sulfonamide Antibiotics); ld1 - PMHx: 18:40 Alcoholism; Hepatitis C; kidney disease; High Cholesterol; Hypertension; CVA; GERD; ld1 suicidal ideation; Anxiety; - Immunization history:: Adult Immunizations up to date. - Infectious Disease History:: Denies. - Social history:: Smoking status: Patient denies any tobacco usage or history of. Patient uses alcohol, on a daily basis. ROS: 18:50 Constitutional: Negative for body aches, chills, fever, poor PO intake, cp 18:50 Cardiovascular: Positive for chest pain, cp 18:50 Eyes: Negative for injury, pain, redness, and discharge, cp 18:50 ENT: Negative for drainage from ear(s), ear pain, sore throat, difficulty swallowing, difficulty handling secretions, 18:50 Neck: Negative for pain with movement, pain at rest, stiffness, tenderness, 18:50 Respiratory: Negative for cough, shortness of breath, wheezing, 18:50 Abdomen/GI: Negative for abdominal pain, vomiting, diarrhea, constipation, anorexia, black/tarry stool, rectal bleeding, 18:50 Neuro: Negative for seizure activity, syncope, near syncope, weakness, 18:50 All other systems are negative, Exam: 18:55 Constitutional: The patient appears in no acute distress, alert, awake, cp non-diaphoretic, non-toxic, well developed, well nourished, 18:55 Head/Face: Normocephalic, atraumatic. cp 18:55 Eyes: Periorbital structures: appear normal, Conjunctiva: normal, no exudate, no injection, Sclera: no appreciated abnormality, Lids and lashes: appear normal, bilaterally, 18:55 ENT: External ear(s): are unremarkable, Nose: is normal, Mouth: Lips: moist, Oral mucosa: moist, Posterior pharynx: Airway: no evidence of obstruction, patent, 18:55 Neck: C-spine: vertebral tenderness, is not appreciated, crepitus, is not appreciated, ROM/movement: pain, is not appreciated, limited range of motion, is not appreciated, 18:55 Chest/axilla: Inspection: normal, Palpation: is normal, no crepitus, no tenderness, 18:55 Cardiovascular: Rate: tachycardic, Rhythm: regular, Edema: is not appreciated, JVD: is not appreciated, 18:55 Respiratory: the patient does not display signs of respiratory distress, Respirations: normal, no use of accessory muscles, no retractions, labored breathing, is not present, Breath sounds: are clear throughout, no decreased breath sounds, no stridor, no wheezing, 18:55 Abdomen/GI: Inspection: abdomen appears normal, Palpation: abdomen is soft and non-tender, in all quadrants, 18:55 Neuro: Orientation: to person, place, situation, Mentation: able to follow commands, Motor: moves all fours, strength is normal, 19:02 ECG was reviewed by the Attending Physician. cp Vital Signs: 18:41 BP 162 / 90; Pulse 115; Resp 18; Temp 97.5(TE); Pulse Ox 96% on R/A; Weight 72.57 kg; ld1 Height 5 ft. 10 in. ; Pain 7/10; 19:41 BP 147 / 87; Pulse 110; Resp 18; Pulse Ox 100% ; vc1 20:30 BP 138 / 82; Pulse 88; Resp 16; Pulse Ox 99% ; al5 22:30 BP 104 / 67; Pulse 92; Resp 16; Pulse Ox 94% on R/A; al5 23:30 BP 111 / 70; Pulse 95; Resp 16; Pulse Ox 97% ; al5 18 00:45 BP 119 / 77; Pulse 93; Resp 16; Pulse Ox 95% ; al5 01:30 BP 124 / 75; Pulse 97; Resp 15; Pulse Ox 96% on R/A; al5 02/04 18:41 Body Mass Index 22.96 (72.57 kg, 177.8 cm) ld1 02/04 18:41 Pain Scale: Adult ld1 MDM: 02/04 18:41 Medical Screening Exam initiated cp 19:00 Differential diagnosis: abnormal EKG, acute myocardial infarction, pleurisy, pneumonia, cp pneumothorax, pulmonary embolus, stable angina, thoracic aortic disection, unstable angina. Data reviewed: vital signs, nurses notes, lab test result(s), EKG, radiologic studies, plain films, and as a result, I will discharge patient. 02/05 01:23 I considered the following discharge prescriptions or medication management in the emergency department Medications were administered in the Emergency Department. See MAR. 01:23 Consideration of Admission/Observation Escalation of care including admission/observation considered. Independent interpretation of the following test(s) in the Emergency Department EKG: See my EKG interpretation above. Counseling: I had a detailed discussion with the patient and/or guardian regarding the historical points, exam findings, and any diagnostic results supporting the discharge/admit diagnosis, lab results, radiology results, to return to the emergency department if symptoms worsen or persist or if there are any questions or concerns that arise at home. Response to treatment: the patient's symptoms have markedly improved after treatment, and as a result, I will discharge patient. ED course: VSS. Patient clinically sober and observed ambulating w/o assistance. Will discharge to home for continued monitoring. 02/04 18:42 Order name: Basic Metabolic Panel; Complete Time: 19:50 cp 02/04 19:51 Interpretation: Normal except: GLUC 121; CRE 1.52; GFR 51; CA 8.4. 02/04 18:42 Order name: CBC with Diff; Complete Time: 21:25 cp 02/04 19:51 Interpretation: Normal except: RBC 3.02; HGB 10.4; HCT 29.5; PLT 138; GAUDENCIO% 24.0; LYM% cp 62.2; NEUT A 1.2. 02/04 18:42 Order name: LFT's; Complete Time: 19:50 cp 02/04 19:51 Interpretation: Normal except: AST 84; ALT 89; IBILI, CALC 0.1; GLOB 3.8; A/G 0.9. cp / 18:42 Order name: Magnesium; Complete Time: 19:50 cp 02/04 18:42 Order name: NT PRO-BNP; Complete Time: 19:50 cp 02/04 18:42 Order name: PT-INR; Complete Time: 19:50 cp 02/04 18:42 Order name: Troponin HS; Complete Time: 19:50 cp 02/04 18:42 Order name: UDS; Complete Time: 19:50 cp 02/04 18:42 Order name: ETOH Level; Complete Time: 19:50 cp 02/04 19:52 Interpretation: Abnormal: ETOH 349. cp 02/04 18:42 Order name: Ptt, Activated cp 02/04 18:42 Order name: Lipase; Complete Time: 19:50 cp 02/04 19:54 Interpretation: Reviewed. cp 02/04 20:45 Order name: Manual Differential; Complete Time: 21:25 EDMS 02/04 21:26 Interpretation: Normal except: SEGS 25; LYM 64. cp 02/04 21:26 Order name: Troponin High Sensitivity; Complete Time: 00:37 cp 02/05 00:37 Interpretation: Reviewed. cp 02/04 18:42 Order name: XRAY Chest (1 view); Complete Time: 19:50 cp 02/04 20:02 Order name: CT Abd/Pelvis - IV Contrast Only; Complete Time: 21:25 cp 02/04 21:26 Interpretation: Report reviewed. cp 02/04 18:42 Order name: EKG; Complete Time: 18:43 cp 02/04 18:42 Order name: Cardiac monitoring; Complete Time: 19:01 cp 02/04 18:42 Order name: EKG - Nurse/Tech; Complete Time: 19:01 cp 02/04 18:42 Order name: IV Saline Lock; Complete Time: 18:50 cp 02/04 18:42 Order name: Labs collected and sent; Complete Time: 18:50 cp 02/04 18:42 Order name: O2 Per Protocol; Complete Time: 18:50 cp 02/04 18:42 Order name: O2 Sat Monitoring; Complete Time: 18:50 cp EC/17 19:02 Rate is 98 beats/min. Rhythm is regular. [place] interval is normal. QRS interval is normal. cp QT interval is normal. T waves are Inverted in lead aVR. Interpreted by me. Reviewed by me. Administered Medications: 20:11 Drug: Banana Bag - (Multivitamin IV 1 amp, NS 0.9% IV 1000 ml, Thiamine IV 100 mg, vc1 foLIC Acid IVPB 1 mg) IV at 250 ml/hr once Route: IV; Rate: 250 ml/hr; Site: right wrist; 02/05 02:11 Follow up: Response: No adverse reaction; IV Status: Completed infusion; IV Intake: al5 1000ml 02/04 20:23 Drug: Ativan IVP 0.5 mg IVP once Route: IVP; Site: right wrist; vc1 02/05 02:11 Follow up: Response: No adverse reaction al5 Disposition Summary: 02/05/25 01:24 Discharge Ordered Notes: Location: Home cp Problem: new cp Symptoms: have improved cp Condition: Stable cp Diagnosis - Alcohol use, unspecified with intoxication cp - Chest pain, unspecified cp Followup: cp - With: Private Physician - When: 2 - 3 days - Reason: Recheck today's complaints Discharge Instructions: - Discharge Summary Sheet cp - Alcohol Intoxication cp - Nonspecific Chest Pain, Adult cp - Alcohol Abuse and Nutrition cp - Aspirin and Your Heart cp - Alcohol Abuse and Dependence Information, Adult cp Forms: - Medication Reconciliation Form cp - Antibiotic Education cp - Prescription Opioid Use cp - Patient Portal Instructions cp - Leadership Thank You Letter cp Addendum: 02/07/2025 09:39 I was immediately available for consultation during this patient's visit. I did not e c2 personally see the patient or discuss the patient with the NEHA. . Signatures: Dispatcher [employer] EDMS Dale Holbrook PA PA cp Kandi Coleman RN RN ld1 Manisha Arellano RN RN vc1 Gerard Palmer MD MD ec2 Opal Rincon RN al5 Corrections: (The following items were deleted from the chart) 02/04 21:27 21:27 Troponin High Sensitivity+C.LAB.BRZ ordered. EDMS EDMS
[2025-02-05 02:16] VITALS: TEMP 97.5
[2025-02-05 02:22] VITALS: BP 124/75; O2SAT 96
--- NOTE | 2025-02-06 12:35 | EKG ---
Test Date: 2025-02-04 Test Time: 18:54:52 Vmware Engineer: ROSANNE MEASUREMENT RESULTS: Intervals: Rate: 98 LA: 196 QRSD: 88 QT: 338 QTc: 431 [place]: P: 73 LA: 196 QRS: 21 T: 50 INTERPRETIVE STATEMENTS: Normal sinus rhythm Normal ECG Compared to ECG 10/22/2024 11:26:04 No significant changes Electronically Signed On 02-06-25 12:26:51 CDT by Steve Villanueva
== END 2025-02-05 02:10 | disposition home or self-care (01) ==
LOC: ER 18:38
DX: F10.229 Alcohol dependence with intoxication, unspecified (principal)
CPT/HCPCS: 96365; 93005; 85025; 80048; 36415; 83735; 85610; 80076; 85730; 84484 ×2; 83690; 83880; 80307; 74177; 71045; 96375; 99285; 96366; 82077; Q9967; J3411; J7030

== ENCOUNTER 2025-04-01 12:23 | Emergency (ER) | payer OTHER ==
--- OUTSIDE RECORDS SUMMARY | 2025-04-01 12:26 | XMS REPORT | Continuity of Care Document ---
Author Name Unknown Address [address] [place] [address] Organization [facility] [place] Address [address] [place] [address] Care Team Providers Care Call Center Consultant Name Role Phone Fernanda Isaacs Primary Care Physician [phone] Fernanda Isaacs Attending Clinician [phone] Lab, Ang - Db Attending Clinician Unavailable FERNANDA GOODWIN Attending Clinician Unavailable NIKOLE SALES Attending Clinician Unavailable Trevor Morris Attending Clinician Dania Loaiza Attending Clinician Ogbalwinder_Jodee Attending Clinician Unavailable Rafael-Mbayo_A_AH Attending Clinician Unavailable Ogbechie_L Admitting Clinician Unavailable Rafael-Mbayo_A_AH Admitting Clinician Unavailable Payers Payer Name Policy Type Policy Number Effective Date Expirati on Date Source [employer] MEDICARE ADV PPO [id number] 2025 00:00:00 [facility] [place] FFS 5 [id number] 2024 00:00:00 [employer] (MEDICARE REPLACEMENT HMO) [id number] 2020 00:00:00 [facility] (MEDICARE REPLACEMENT/[place] GE - HMO) [id number] 2019 00:00:00 Allergies, Adverse Reactions, Alerts Allergy Name Allergy Type Status Severity Reaction(s) Onset Date Inactive Date Treating Clinician Comments Source Sulfa (Sulfona mide Antibiot ics) Propensi ty to adverse reaction s Active Unknown - See comments 03-01 00:00: 00 [facility] SULFA (SULFONA MIDE ANTIBIOT ICS) Drug Class Active Unknown-Cmnt 03-01 00:00: 00 [facility] Sulfa Antibiot ics Drug Allergy Active [facility] Social History Social Habit Start Date Stop Date Quantity Comments Source History of tobacco use Cigarette Smoker [facility] Tobacco use and exposure 2025-03-01 00:00:00 2025-03-01 00:00:00 Smokeless tobacco non-user [facility] Alcoholic beverage intake 2025-03-01 00:00:00 2025-03-01 00:00:00 Current drinker of alcohol (finding) [facility] History of Social function 2025-03-01 00:00:00 2025-03-01 00:00:[address] [facility] Sex assigned at 1960 00:00:00 1960 00:00:[address] [facility] Smoking Status Start Date Stop Date Source Smokes tobacco daily 2025-03-01 00:00:[address] [facility] Medications Ordered Medication Name Filled Medication Name Start Date Stop Date Current Medication? Ordering Clinician Indication Dosage Frequency Signature (SIG) Comments Components Source FLUoxetine 40 mg capsule 03-01 10:17: 52 03-01 00:00 :00 No 40mg Take 1 capsule by mouth in the morning. [facility] simvastatin 40 mg tablet 03-01 10:17: 46 03-01 00:00 :00 No 40mg Take 1 tablet by mouth at bedtime. [facility] lisinopriL 10 mg tablet 03-01 10:17: 46 03-01 00:00 :00 No 10mg Take 1 tablet by mouth in the morning. [facility] ferrous sulfate (IRON) 325 mg (65 mg iron) tablet 03-01 10:17: 46 03-01 00:00 :00 No 325mg Take 1 tablet by mouth in the morning and 1 tablet at noon and 1 tablet in the evening. Take with meals. [facility] omeprazole 20 mg capsule 03-01 10:17: 46 03-01 00:00 :00 No 20mg Take 1 capsule by mouth in the morning. [facility] foLIC acid 1 mg tablet 03-01 10:17: 01 03-01 00:00 :00 No 1mg Take 1 tablet by mouth in the morning. [facility] aspirin 81 mg chewable tablet 03-01 09:45: 39 Yes 81mg Take 1 tablet by mouth in the morning. [facility] FLUoxetine 40 mg capsule 03-01 00:00: 00 Yes [id number] 40mg Take 1 capsule by mouth in the morning. [facility] lisinopriL 10 mg tablet 03-01 00:00: 00 Yes [id number] 10mg Take 1 tablet by mouth in the morning. [facility] simvastatin 40 mg tablet 03-01 00:00: 00 Yes [id number] 40mg Take 1 tablet by mouth at bedtime. [facility] omeprazole 20 mg capsule 03-01 00:00: 00 Yes [id number] 20mg Take 1 capsule by mouth in the morning. [facility] ferrous sulfate (IRON) 325 mg (65 mg iron) tablet 03-01 00:00: 00 Yes [id number] 325mg Take 1 tablet by mouth in the morning. [facility] pantoprazol e sodium 40 mg tablet pantoprazol e sodium 40 mg tablet Yes [facility] Vital Signs Vital Name Observation Time Observation Value Comments S harpreet Body height 2025-03-01 14:39:00 167.6 cm [facility] Body weight 2025-03-01 14:39:00 69.854 kg [facility] BMI 2025-03-01 14:39:00 24.86 kg/m2 [facility] Oxygen saturation in Arterial blood by Pulse oximetry 2025-03-01 14:39:00 98 /min [facility] Systolic blood pressure 2025-03-01 14:39:00 118 mm[Hg] [facility] Diastolic blood pressure 2025-03-01 14:39:00 73 mm[Hg] [facility] Heart rate 2025-03-01 14:39:00 85 /min [facility] Body temperature 2025-03-01 14:39:[address] [facility] Encounters Start Date/Time End Date/Time Encounter Type Admission Type Attending Clinicians Care Facility Care Department Encounter ID Source 2025-03-21 00:00:00 2025-03-26 11:51:14 Fernanda Vo [facility] [id number] [id number] [id number] [id number] [facility] 2025-03-21 00:00:00 2025-03-22 14:54:08 Telephone Fernanda Goodwin [facility] [id number] 350.1.13.10 [id number] [id number] [facility] 2025-03-21 10:15:00 2025-03-21 10:30:00 Stone Breaker Visit Lab, Ang - Fernanda Mckeon Lab, Ang - Umesh [facility] [id number] 350.1.13.10 [id number] [id number] [facility] 2025-03-21 10:15:00 2025-03-21 10:15:00 Outpatient R FERNANDA GOODWIN [facility] [id number] [facility] 2025-03-01 00:00:00 2025-03-04 12:59:49 Telephone Fernanda Goodwin [facility] [id number] 350.1.13.10 4.2.7.2.686 [id number] [facility] 2025-03-01 10:00:00 2025-03-01 10:16:09 Office Visit Fernanda Goodwin [facility] [id number] 350.1.13.10 4.2.7.2.686 [id number] [facility] 2025-03-01 10:00:00 2025-03-01 10:16:09 Outpatient R FERNANDA GOODWIN [facility] [id number] [facility] 2025-01-22 15:00:00 2025-01-22 15:00:00 Outpatient NIKOEL SALES [id number] Lakshmi Watts 2024-06-21 15:00:00 2024-06-21 15:30:00 MAGII Refill Trevor Morris 2.16.840. [id number] 2.16.840.1. [id number] CJ9 [facility] 2023-11-01 21:45:00 2023-11-01 22:05:00 DIRECTOR OF RESIDENTIAL SERVICES Panel-dire cted Gap Closure Dania Loaiza 2.16.840. [id number] 2.16.840.1. [id number] GH8 [facility] 2023-08-02 17:10:00 2023-08-02 17:30:00 Care [facility] - [place] Cl[facility] Dania Loaiza 2.16.840. [id number] 2.16.840.1. [id number] 849 [facility] 2023-06-15 16:30:00 2023-06-15 17:30:00 DIANE Loaiza 2.16.840. [id number] 2.16.840.1. [id number] [facility] 2023-06-01 00:00:00 2023-06-01 00:00:00 Outpatient Ogbechie_L DMG DMG [id number] [facility] 2023-06-01 00:00:00 2023-06-01 00:00:00 Outpatient Ogbechie_L DMG DMG [id number] [facility] 2022-06-04 03:40:00 2022-06-04 03:40:00 Outpatient DMG DMG [id number] [facility] 2022-06-04 00:00:00 2022-06-04 00:00:00 Outpatient DMG DMG [id number] [facility] 2021-12-14 08:00:00 2021-12-14 08:00:00 Outpatient DMG DMG [id number] [facility] 2021-12-04 09:00:00 2021-12-04 09:00:00 Outpatient DMG DMG [id number] [facility] 2021-03-18 04:31:00 2021-03-18 04:31:00 Outpatient Rafael-Mbayo _A_AH VFP VFP [id number] [facility] 2020-01-17 04:19:00 2020-01-17 04:19:00 Outpatient Rafael-Mbayo _A_AH VFP VFP [id number] [facility] 2020-01-17 04:19:00 2020-01-17 04:19:00 Outpatient Rafael-Mbayo _A_AH VFP VFP [id number] [facility] 2020-01-17 04:19:00 2020-01-17 04:19:00 Outpatient Rafael-Mbayo _A_AH VFP VFP [id number] [facility] 2020-01-17 04:19:00 2020-01-17 04:19:00 Outpatient Rafael-Mbayo _A_AH VFP VFP [id number] [facility] 2020-01-17 04:19:00 2020-01-17 04:19:00 Outpatient Rafael-Mbayo _A_AH VFP VFP [id number] [facility] Notes Date/Time Note Provider Source 2025-03-26 11:50:33 Will mail letter to patient as requested. Makayla Reyes MA [facility] 2025-03-21 12:24:33 Pt would like the letter for the emotional support animal mailed to him. Please Advise. Micaela Buckley [facility] 2025-03-21 11:21:50 Please review and sign if appropriate. Guerda Aragon LVN [facility] 2025-03-21 10:19:30 Patient expressed a preference that Gastroenterology referral to be external, as he wishes to see providers located closer to his home Ada- George Quinonez MD [place] P: [phone] [facility] 2025-03-21 10:15:00 Pt was not fasting will return when he is Kacy Mao 03/21/2025 10:[address] [facility] 2025-03-04 12:59:08 Letter has been printed and mailed per patient request/ Roxie Phillips MA [facility] 2025-03-01 13:08:51 Arden Lang is a 64 year old male is requesting the letter be mailed to him Gómez Arevalo [facility] 2025-03-01 11:25:30 Please see letters/communications. [facility] 2025-03-01 11:11:25 Please review and advise Amarilis Luke RN [facility] 2025-03-01 10:22:09 Pt stated he needed a letter to give to his landlord in regards to his emotional service animal Patrick Moralez [facility] 2024-06-21 15:00:00 ASSESSMENT SUMMARY ARDEN LANG III is a 64 year old man seen today by [facility] for a [facility] Visit. [facility] Visits are designed to target a specific urgent or non-urgent clinical concern. See below for teaching and instruction given regarding specific diagnoses. Member verbalized understanding to all. Members Preferred Language Swiss Patient Currently Located in their home state of [place], YES DIAGNOSIS [id number] - Essential (primary) hpnwdyylxdckA66.5 - Hyperlipidemia, qfctqhdhhjjW42.9 - Anxiety disorder, hyxerizegueK57.1 - Encounter for screening for diabetes mellitus HISTORY OF PRESENT ILLNESS History of Present Illness: 64 yo M referred for OD visit from [facility] team for medication refills. Recommended medication refills: magii scheduled, refill assistance LISINOPRIL TAB 10MG , #90 1 tablet daily member's number [facility] pharmacy [phone] He is also requesting a refill of [...] Recent labs: no labs available Pharmacy: - [facility] [id number] [address] [place] [address] [phone] Recent Labs: There are no labs in [...]
--- NOTE | 2025-04-01 13:27 | RAD REPORT ---
EXAMINATION: CT MAXILLOFACIAL WITHOUT CONTRAST CLINICAL INDICATION: Facial pain. Status post fall TECHNIQUE: Axial images were obtained through the facial bones and orbits without intravenous contras t. Sagittal and coronal reconstructions were created from the data. One or more of the following dose reduction techniques were used: Automated exposure control, adjustment of the mA and/or kV accor ding to patient size, and/or iterative reconstruction. Unless otherwise specified, incidental findings do not require dedicated imaging follow-up. COMPARISON: No prior exam. FINDINGS: No fracture visualized. No TMJ dislocation The globes are intact. No fluid within the sinuses IMPRESSION: No fracture seen
--- NOTE | 2025-04-01 13:27 | RAD REPORT ---
EXAMINATION: CT HEAD WITHOUT CONTRAST CT CERVICAL SPINE WITHOUT CONTRAST CLINICAL INDICATION: Head and neck injury status post fall. Head and neck pain TECHNIQUE: Axial CT images from the skull base to the vertex without intravenous contrast. Axial CT i mages through the cervical spine were obtained without intravenous contrast. Sagittal and coronal reformatted images were created from the data set. Coronal and sagittal reformatted images were creat ed from the data set. One or more of the following dose reduction techniques were used: Automated exposure control, adjustment of the mA and/or kV according to patient size, and/or iterative reconstr uction. Unless otherwise specified, incidental findings do not require dedicated imaging follow-up. [id number]. Comparison: 2023 FINDINGS: An intracranial bleed is not seen. Ventricles are normal in caliber. Old left cerebellar infarction. Mild to moderate low-density paraventricular, deep and subcortical wh ite matter likely ischemic changes secondary to small vessel disease. No extra-axial fluid collection. No fluid within the sinuses/mastoids No fracture or dislocation is seen involving the cervical spine. IMPRESSION: No acute intracranial abnormality noted A cervical fracture is not seen. If the patient continues to have symptoms to suggest acute COTTRELL BLOWER/spinal pathology then MRI would be rec ommended
--- NOTE | 2025-04-01 13:37 | ER ---
Nurse's Notes [facility] Name: Arden Amador III Age: 64 yrs Sex: Male : 1960 Arrival Date: 04/01/2025 Time: 12:23 Bed 26 Private MD: Diagnosis: Mechanical fall, facial contusion, traumatic epistaxis Presentation: 04/01 12:40 Chief complaint: EMS states: PT REPORTS GETTING OUT OF CAR, TRIPPED AND FELL, LANDING dd2 ON FACE AND LT ARM. PT DENIES LOC. C/O PAIN TO NOSE AND LT ARM SKIN TEAR. Coronavirus screen: At this time, the client does not indicate any symptoms associated with coronavirus-19. Ebola Screen: No symptoms or risks identified at this time. Initial Sepsis Screen: Does the patient meet any 2 criteria? No. Patient's initial sepsis screen is negative. Does the patient have a suspected source of infection? No. Patient's initial sepsis screen is negative. Risk Assessment: Do you want to hurt yourself or someone else? Patient reports no desire to harm self or others. Onset of symptoms was April 01, 2025. 12:40 Method Of Arrival: EMS: [facility] dd2 12:40 Acuity: LILIA 4 dd2 12:49 Care prior to arrival: DRESSING APPLIED TO LT ARM IV initiated. 18 GA, in the right dd2 antecubital area. Triage Assessment: 12:49 General: Appears in no apparent distress. Behavior is calm, cooperative, appropriate dd2 for age. Pain: Complains of pain in nose and dorsal aspect of left forearm Pain does not radiate. Pain currently is 4 out of 10 on a pain scale. EENT: Nares with bleeding noted NASAL BRIDGE. Neuro: Level of Consciousness is awake, alert, obeys commands, Oriented to person, place, time, situation, Appropriate for age. Cardiovascular: No deficits noted. Patient's skin is warm and dry. Respiratory: No deficits noted. Airway is patent Respiratory effort is even, unlabored, Respiratory pattern is regular, symmetrical. GI: No deficits noted. No signs and/or symptoms were reported involving the gastrointestinal system. Abdomen is non-distended, Abd is soft and non tender X 4 quads. : No deficits noted. No signs and/or symptoms were reported regarding the genitourinary system. Derm: Wound noted nose and dorsal aspect of left forearm Reports pain that is 4 out of 10 on a pain scale. Musculoskeletal: Circulation, motion, and sensation intact. Range of motion: intact in all extremities. Injury Description: SKIN TEAR TO LT FOREARM. Historical: - Allergies: 12:49 Sulfa (Sulfonamide Antibiotics); dd2 - PMHx: 12:49 Alcoholism; Anxiety; CVA; GERD; Hepatitis C; High Cholesterol; Hypertension; kidney dd2 disease; suicidal ideation; - PSHx: 12:49 None; dd2 - Immunization history:: Adult Immunizations up to date. - Infectious Disease History:: Denies. - Social history:: Smoking status: Patient reports the use of cigarette tobacco products, denies chronic smoking, but will smoke occasionally. Screenin:52 [facility] ED Fall Risk Assessment (Adult) History of falling in the last 3 months, dd2 including since admission Yes- single mechanical fall (1 pt) Confusion or Disorientation No (0 pts) Intoxicated or Sedated No (0 pts) Impaired Gait No (0 pts) Mobility Assist Device Used No (0 pt) Altered Elimination No (0 pt) Score/Fall Risk Level 0 - 2 = Low Risk Oriented to surroundings, Maintained a safe environment, Educated pt \T\ family on fall prevention, incl call for assistance when getting out of bed, Assessed \T\ reinforced patient's understanding of fall precautions, Hourly rounding (assess needs \T\ fall precautionary measures) done. Abuse screen: Denies threats or abuse. Denies injuries from another. Nutritional screening: No deficits noted. Tuberculosis screening: No symptoms or risk factors identified. Assessment: 12:52 Reassessment: SEE TRIAGE ASSESSMENT FOR FULL ASSESSMENT. dd2 Vital Signs: 12:40 BP 115 / 68; Pulse 86; Resp 17; Temp 98.3; Pulse Ox 98% on R/A; Weight 68.04 kg; Pain dd2 4/10; 13:40 BP 119 / 68; Pulse 83; Resp 16; Pulse Ox 97% on R/A; dd2 12:40 Pain Scale: Adult dd2 [place] Coma Score: 12:52 Eye Response: spontaneous(4). Motor Response: obeys commands(6). Verbal Response: dd2 oriented(5). Total: 15. ED Course: 12:25 Patient arrived in ED. dd2 12:26 William Davis MD is Attending Physician. ms3 12:40 No provider procedures requiring assistance completed. EKG done, by ED staff, reviewed dd2 by William Davis MD. 12:45 MARIVEL FIELDS, RN is Primary Nurse. dd2 12:49 Triage completed. dd2 12:49 Arm band placed on right wrist. dd2 12:52 Maintain EMS IV. Dressing intact. Good blood return noted. Site clean \T\ dry. Gauge \T\ dd 2 site: 18G RAC. Flushed with 10 mL NS. Patient maintains SpO2 saturation greater than 95% on room air. 12:52 Patient has correct armband on for positive identification. Bed in low position. Call dd2 light in reach. Side rails up X2. Client placed on continuous cardiac and pulse oximetry monitoring. NIBP monitoring applied. Door closed. Noise minimized. Warm blanket given. Pillow given. Verbal reassurance given. 13:08 CT Head C Spine In Process Unspecified. EDMS 13:08 CT Facial Bones W/O Con In Process Unspecified. EDMS 13:41 Wound care: ice pack applied. dd2 13:52 IV discontinued, intact, bleeding controlled, No redness/swelling at site. Pressure dd2 dressing applied. Administered Medications: No medications were administered Medication: 12:52 VIS not applicable for this client. dd2 Outcome: 13:36 Discharge ordered by . sp3 13:52 Discharged to home ambulatory, dd2 13:52 Condition: stable 13:52 Discharge instructions given to patient, Instructed on discharge instructions, follow up and referral plans. safety practices, Demonstrated understanding of instructions, follow-up care, 13:53 Patient left the ED. dd2 Signatures: Dispatcher [employer] EDOR Baldomero Coleman DO DO ms3 William Davis MD MD sp3 MARIVEL FIELDS, RN RN dd2
--- NOTE | 2025-04-01 13:37 | EDPHYS ---
Physician Documentation [facility] Name: Arden Amador III Age: 64 yrs Sex: Male : 1960 Arrival Date: 04/01/2025 Time: 12:23 Bed 26 Private MD: ED Physician William Davis HPI: 04/01 12:34 This 64 yrs old Male presents to ER via Unassigned with complaints of Fall Injury. sp3 12:34 64-year-old male with history of alcoholism, liver failure, renal failure now presents sp3 for mechanical fall face forward with no reported loss of consciousness. Patient has multiple and frequent falls. He was seen by EMS yesterday for a fall but decided not to come to the ED. Today he has "a bloody nose" and wanted to "get checked out". He drinks daily. He currently denies headache, neck pain, chest pain, shortness of breath, back pain, abdominal pain extremity pain or any other signs or symptoms on ROS at this time. Only complains of mild pain to the nose.. Historical: - Allergies: 12:49 Sulfa (Sulfonamide Antibiotics); dd2 - PMHx: 12:49 Alcoholism; Anxiety; CVA; GERD; Hepatitis C; High Cholesterol; Hypertension; kidney dd2 disease; suicidal ideation; - PSHx: 12:49 None; dd2 - Immunization history:: Adult Immunizations up to date. - Infectious Disease History:: Denies. - Social history:: Smoking status: Patient reports the use of cigarette tobacco products, denies chronic smoking, but will smoke occasionally. ROS: 12:35 Constitutional: Negative for fever, chills, and weight loss, Neck: Negative for injury, sp3 pain, and swelling, Cardiovascular: Negative for chest pain, palpitations, and edema, Respiratory: Negative for shortness of breath, cough, wheezing, and pleuritic chest pain, Abdomen/GI: Negative for abdominal pain, nausea, vomiting, diarrhea, and constipation, Back: Negative for injury and pain, MS/Extremity: Negative for injury and deformity, Skin: Negative for injury, rash, and discoloration, Allergy/Immunology: Negative for hives, rash, and allergies, Endocrine: Negative for neck swelling, polydipsia, polyuria, polyphagia, and marked weight changes, 12:35 All other systems are negative, Exam: 12:35 Constitutional: This is a well developed, well nourished patient who is awake, alert, sp3 and in no acute distress. Eyes: Pupils equal round and reactive to light, extra-ocular motions intact. Lids and lashes normal. Conjunctiva and sclera are non-icteric and not injected. Cornea within normal limits. Periorbital areas with no swelling, redness, or edema. Neck: Trachea midline, no thyromegaly or masses palpated, and no cervical lymphadenopathy. Supple, full range of motion without nuchal rigidity, or vertebral point tenderness. No Meningismus. Chest/axilla: Normal chest wall appearance and motion. Nontender with no deformity. No lesions are appreciated. Cardiovascular: Regular rate and rhythm with a normal S1 and S2. No gallops, murmurs, or rubs. Normal PMI, no JVD. No pulse deficits. Respiratory: Lungs have equal breath sounds bilaterally, clear to auscultation and percussion. No rales, rhonchi or wheezes noted. No increased work of breathing, no retractions or nasal flaring. Abdomen/GI: Soft, non-tender, with normal bowel sounds. No distension or tympany. No guarding or rebound. No evidence of tenderness throughout. MS/ Extremity: Pulses equal, no cyanosis. Neurovascular intact. Full, normal range of motion. Neuro: Awake and alert, GCS 15, oriented to person, place, time, and situation. Cranial nerves II-XII grossly intact. Motor strength 5/5 in all extremities. Sensory grossly intact. Cerebellar exam normal. Normal gait. 12:35 Head/face: Patient has epistaxis on the right nare and some nasal swelling. No nasal septal hematoma. No dental injury. No scalp hematoma or injuries noted. Neck exam is benign.. 12:38 ECG was reviewed by the Attending Physician. EKG demonstrates normal sinus rhythm at 87 sp3 bpm with normal intervals, normal QRS, normal axis, normal ST/T-segment's without evidence of acute ischemia. Vital Signs: 12:40 BP 115 / 68; Pulse 86; Resp 17; Temp 98.3; Pulse Ox 98% on R/A; Weight 68.04 kg; Pain dd2 4/10; 13:40 BP 119 / 68; Pulse 83; Resp 16; Pulse Ox 97% on R/A; dd2 12:40 Pain Scale: Adult dd2 [place] Coma Score: 12:52 Eye Response: spontaneous(4). Motor Response: obeys commands(6). Verbal Response: dd2 oriented(5). Total: 15. MDM: 12:26 Medical Screening Exam initiated ms3 12:36 Data reviewed: vital signs, nurses notes, EKG, radiologic studies. ED course: sp3 64-year-old male with facial and head injury from a fall mechanical in nature. Patient has frequent falls. Obtain EKG and CT scan of the head and C-spine and facial bones. If workup negative we will discharge home. I am not suspecting any medical etiology for the fall other than his alcohol use. He is not currently heavily inebriated.. 13:32 ED course: All scans negative for any significant trauma. We will safely discharge sp3 patient home at this time. Counseled patient on alcoholism and stopping drinking.. 04/01 12:34 Order name: CT Head C Spine; Complete Time: 13:31 sp3 04/01 12:34 Order name: CT Facial Bones W/O Con; Complete Time: 13:31 sp3 04/01 12:34 Order name: EKG; Complete Time: 12:34 sp3 04/01 12:34 Order name: EKG - Nurse/Tech; Complete Time: 12:40 sp3 Administered Medications: No medications were administered Disposition Summary: 04/01/25 13:36 Discharge Ordered Notes: Location: Home sp3 Condition: Stable sp3 Diagnosis - Mechanical fall, facial contusion, traumatic epistaxis sp3 Followup: sp3 - With: Private Physician - When: Upon discharge from the Emergency Department - Reason: Continuance of care Discharge Instructions: - Discharge Summary Sheet sp3 - Facial or Scalp Contusion sp3 Forms: - Medication Reconciliation Form sp3 - Antibiotic Education sp3 - Prescription Opioid Use sp3 - Patient Portal Instructions sp3 - Leadership Thank You Letter sp3 Signatures: Dispatcher [employer] EDMS Baldomero Coleman DO DO ms3 William Davis MD MD sp3 MARIVEL FIELDS RN RN dd2 Corrections: (The following items were deleted from the chart) 12:34 12:34 Head C Spine MPR Wo Con+CT.RAD.BRZ ordered. EDMS EDMS 12:34 12:34 Facial Bones W/ MPR+CT.RAD.BRZ ordered. EDMS EDMS
[2025-04-01 14:03] VITALS: TEMP 98.3
[2025-04-01 14:04] VITALS: BP 119/68; O2SAT 97
--- NOTE | 2025-04-03 12:25 | EKG ---
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
== END 2025-04-01 13:53 | disposition home or self-care (01) ==
LOC: ER 12:23
DX: S00.83XA Contusion of other part of head, initial encounter (principal); R04.0 Epistaxis; W18.30XA Fall on same level, unspecified, initial encounter; F10.20 Alcohol dependence, uncomplicated; I10 Essential (primary) hypertension; N19 Unspecified kidney failure; F17.210 Nicotine dependence, cigarettes, uncomplicated
CPT/HCPCS: 70450; 70486; 72125; 76377; 93005; 99284